=== PATIENT | female | born 1935 | race Caucasian/White ===

== ENCOUNTER 2020-01-14 11:18 | Outpatient (CLI) | payer MEDICARE, SELFPAY ==
[2020-01-14 12:11] LABS: Alanine Aminotransferase 25 U/L (4-35); Albumin Level 4.3 g/dL (3.5-5.1); Alkaline Phosphatase 100 U/L (38-126); Aspartate Amino Transferase 31 U/L (14-36); Bilirubin,Total 0.7 mg/dL (0.2-1.3); Blood Urea Nitrogen 24 mg/dL (7-17); Calcium 9.5 mg/dL (8.4-10.2); Carbon Dioxide 29 mmol/L (22-30); Chloride 103 mmol/L (98-107); Cholesterol 154 mg/dL (0-200); Estimated Glomerular Filt Rate > 60; Glucose 130 mg/dL (65-105); HDL Direct 61 mg/dL; Potassium 4.6 mmol/L (3.4-5.0); Sodium 138 mmol/L (137-145); Triglycerides 82 mg/dL (<150)
[2020-01-14 12:22] LABS: LDL Cholesterol Direct 69 mg/dL
== END 2020-01-14 11:19 | disposition home or self-care (01) ==
LOC: ANHLAB 11:22
PROVIDERS: PCP Internal Medicine; Visit Provider Internal Medicine Cardiovascular Disease
DX: Z51.81 Encounter for therapeutic drug level monitoring (principal); I25.10 Atherosclerotic heart disease of native coronary artery without angina pectoris; E78.2 Mixed hyperlipidemia
CPT/HCPCS: 36415; 80053; 80061

== ENCOUNTER 2020-01-18 08:02 | Outpatient (CLI) | payer MEDICARE, SELFPAY ==
[2020-01-18 08:17] LABS: Add Urine Microscopic? YES; Appearance Urine Clear (Clear); Bilirubin Urine Negative (Negative); Blood Urine Negative (Negative); Color Urine Yellow (Yellow); Glucose Urine UA Negative (Negative); Ketones Urine Negative (Negative); Leukocyte Esterase Ur Trace LEU/UL (Negative); Nitrate Urine Negative (Negative); Protein Urine Negative (Negative); Specific Grav Ur 1.025 (1.010-1.020); pH Urine 5.5 (5.0-8.0)
[2020-01-18 08:26] LABS: Creatinine Urine 112.86 mg/dL (40-278); MALB Creatinine Ratio 5.9 mg/g (0-30); Microalbumin Urine Random 6.7 mg/L
[2020-01-18 08:29] LABS: Hemoglobin A1C 6.6 % (<5.7)
[2020-01-18 08:33] LABS: Bacteria Urine Trace /hpf; RBC Urine None seen /hpf (0-2); Squamous Epithelial Cell Urine Few /hpf (Few); WBC Urine None seen /hpf (0-3)
[2020-01-18 08:56] LABS: Alanine Aminotransferase 28 U/L (14-59); Albumin Level 3.8 g/dL (3.4-5.0); Alkaline Phosphatase 102 U/L (46-116); Anion Gap 11.6 mmol/L (7-16); Aspartate Amino Transferase 22 U/L (15-37); Bilirubin,Total 0.8 mg/dL (0.00-1.00); Blood Urea Nitrogen 27 mg/dL (7-18); Calcium 9.3 mg/dL (8.5-10.1); Carbon Dioxide 30 mmol/L (21-32); Chloride 105 mmol/L (98-108); Cholesterol 138 mg/dL (0-200); Creatine Kinase 95 U/L (26-192); Estimated Glomerular Filt Rate > 60; Glucose 141 mg/dL (70-99); HDL Direct 62 mg/dL (40-60); LDL Cholesterol Calculated 65 mg/dL (<130); Osmolality Calculated 301 mOsm/kg (285-295); Potassium 4.6 mmol/L (3.5-5.1); Sodium 142 mmol/L (136-145); Total Protein 6.8 g/dL (6.4-8.2); Triglycerides 57 mg/dL (0-150)
[2020-01-21 17:31] LABS: Vitamin D 25 Hydroxy 57 ng/mL (30-100)
== END 2020-01-18 08:03 | disposition home or self-care (01) ==
LOC: CHSLAB 08:04
PROVIDERS: PCP Internal Medicine; Visit Provider Internal Medicine
DX: E55.9 Vitamin D deficiency, unspecified (principal); I10 Essential (primary) hypertension; E11.65 Type 2 diabetes mellitus with hyperglycemia
CPT/HCPCS: 36415; 80053; 80061; 81001; 82043; 82306; 82550; 83036

== ENCOUNTER 2020-02-06 10:34 | Outpatient (CLI) | payer MEDICARE, SELFPAY ==
--- NOTE | ~2020-02-06 | XR_ITS ---
XR hand LT min 3V DATE: 02/06/2020 10:59 INDICATION: Left fourth digit pain. No known injury. TECHNIQUE: 3 views COMPARISON: None FINDINGS: Diffuse osteopenia. There is polyarticular osteoarthritis involving particularly the interphalangeal joints, the first ca rpometacarpal joint. No fracture or dislocation, periosteal reaction or bone destruction. IMPRESSION: Osteopenia Polyarticular osteoarthritis Reviewed, dictated and finalized at location B.
--- NOTE | ~2020-02-06 | XR_ITS ---
EXAMINATION:XR_CERV2-3V_CR DATE: 02/06/2020 10:59 INDICATION: Neck pain TECHNIQUE: AP, lateral, lateral swimmers and odontoid views of the cervical spine are provided. COMPARISON: None FINDINGS: There are 2 mm of anterolisthesis of C4 on C5 and C7 on T1. The odontoid is intact. No frac ture is identified. The vertebral body heights are maintained. There is moderate loss of intervertebr al disc space height at C6-7 and C7-T1 and mild loss of intervertebral disc space height at C4-5 and C5-6. There are severe multilevel facet and uncovertebral joint osteoarthritis. Small degenerative os teophytes project from the anterior endplates of multiple vertebral bodies. IMPRESSION: 1. Moderate to severe cervical spondylosis without acute findings. Reviewed, dictated and finalized at location A.
--- NOTE | ~2020-02-06 | XR_ITS ---
XR hand RT min 3V DATE: 02/06/2020 11:00 INDICATION: First digit locks up TECHNIQUE: 3 views COMPARISON: None FINDINGS: There is polyarticular osteoarthritis, involving particularly the first carpometacarpal and multiple interphalangeal joints, mild involvement at the metacarpophalangeal joints. Chondrocalcinosis of the triangular cartilage. No fracture or dislocation, periosteal reaction or bone destruction. IMPRESSION: Polyarticular osteoarthritis Reviewed, dictated and finalized at location B.
[2020-02-06 10:54] LABS: Basophils Absolute Auto 0.02 K/mm3 (0.00-0.10); Basophils Percent Auto 0.3 % (0.0-1.0); Eosinophils Absolute Auto 0.15 K/mm3 (0.02-0.50); Eosinophils Percent Auto 2.2 % (1.0-6.0); Hematocrit 37.5 % (35.0-42.0); Hemoglobin 12.1 g/dL (11.7-13.8); Immature Granulocyte Absolute 0.02 K/mm3 (0.00-0.00); Immature Granulocyte Percent A 0.3 % (0.0-0.0); Lymphocytes Absolute Auto 1.91 K/mm3 (1.10-4.50); Lymphocytes Percent Auto 27.9 % (18.0-42.0); Mean Corpuscular HGB Conc 32.3 g/dL (32.0-36.0); Mean Corpuscular Hemoglobin 31.3 pg (27.0-31.0); Mean Corpuscular Volume 97.2 fL (78.0-102.0); Mean Platelet Volume 10.8 fl (9.2-11.8); Monocytes Absolute Auto 0.41 K/mm3 (0.10-0.90); Neutrophils Absolute Auto 4.3 K/mm3 (1.7-7.2); Neutrophils Percent Auto 63.3 % (50.0-70.0); Platelet Count Result 150 K/mm3 (150-420); Red Blood Count 3.86 M/mm3 (4.20-5.40); Red Cell Distribution Width 12.3 % (11.6-14.4); White Blood Count 6.8 K/mm3 (4.8-10.8)
[2020-02-06 11:59] LABS: Rheumatoid Factor Screen Negative (Negative)
[2020-02-06 12:00] LABS: Erythrocyte Sedimentation Rate 18 mm/hr (0-20)
[2020-02-06 12:06] LABS: Ferritin 104 ng/mL (8-252); Free T3 2.23 pg/mL (2.18-3.98); Free T4 Free Thyroxine 1.03 ng/dL (0.76-1.46); Iron 62 ug/dL (50-170); Percent Iron Saturation 18 % (12-57); Thyroid Stimulating Hormone 1.64 uIU/mL (0.36-3.74)
[2020-02-06 12:14] LABS: CRP < 0.2 mg/dL (0.0-0.9)
[2020-02-11 14:27] LABS: Anti Cyclic Citrullinated Pept <16 Units (<20)
== END 2020-02-06 10:35 | disposition home or self-care (01) ==
LOC: CHSLAB 10:36
PROVIDERS: PCP Internal Medicine; Visit Provider Internal Medicine
DX: M54.2 Cervicalgia (principal); M79.642 Pain in left hand; M79.641 Pain in right hand; R53.83 Other fatigue; E11.9 Type 2 diabetes mellitus without complications; Z79.899 Other long term (current) drug therapy; E55.9 Vitamin D deficiency, unspecified; R41.3 Other amnesia; D50.9 Iron deficiency anemia, unspecified
CPT/HCPCS: 36415; 72040; 73130; 82728; 83540; 83550; 84439; 84443; 84481; 85025; 85652; 86140; 86200; 86430

== ENCOUNTER 2020-07-02 11:23 | Outpatient (CLI) | payer MEDICARE, SELFPAY ==
[2020-07-02 11:38] LABS: Add Urine Microscopic? YES; Appearance Urine Clear (Clear); Bilirubin Urine Negative (Negative); Blood Urine Negative (Negative); Color Urine Yellow (Yellow); Glucose Urine UA Negative (Negative); Ketones Urine Negative (Negative); Leukocyte Esterase Ur Trace (Negative); Nitrate Urine Negative (Negative); Protein Urine Negative (Negative); Specific Grav Ur >= 1.030 (1.010-1.020); Urobilinogen Urine 0.2 mg/dL (0.2-1.0)
[2020-07-02 11:39] LABS: Basophils Absolute Auto 0.02 K/mm3 (0.00-0.10); Basophils Percent Auto 0.3 % (0.0-1.0); Eosinophils Absolute Auto 0.19 K/mm3 (0.02-0.50); Eosinophils Percent Auto 2.6 % (1.0-6.0); Hematocrit 37.5 % (35.0-42.0); Hemoglobin 11.8 g/dL (11.7-13.8); Immature Granulocyte Absolute 0.03 K/mm3 (0.00-0.00); Immature Granulocyte Percent A 0.4 % (0.0-0.0); Lymphocytes Absolute Auto 2.06 K/mm3 (1.10-4.50); Lymphocytes Percent Auto 28.3 % (18.0-42.0); Mean Corpuscular HGB Conc 31.5 g/dL (32.0-36.0); Mean Corpuscular Hemoglobin 30.8 pg (27.0-31.0); Mean Corpuscular Volume 97.9 fL (78.0-102.0); Mean Platelet Volume 10.9 fl (9.2-11.8); Monocytes Absolute Auto 0.56 K/mm3 (0.10-0.90); Monocytes Percent Auto 7.7 % (2.0-11.0); Neutrophils Absolute Auto 4.4 K/mm3 (1.7-7.2); Neutrophils Percent Auto 60.7 % (50.0-70.0); Platelet Count Result 176 K/mm3 (150-420); Red Blood Count 3.83 M/mm3 (4.20-5.40); Red Cell Distribution Width 12.5 % (11.6-14.4); White Blood Count 7.3 K/mm3 (4.8-10.8)
[2020-07-02 11:43] LABS: RBC Urine 0-2 /hpf (0-2); WBC Urine 0-3 /hpf (0-3)
[2020-07-02 11:44] LABS: Bacteria Urine 1+ /hpf; Mucus Urine Few /lpf; Squamous Epithelial Cell Urine Few /hpf (Few)
[2020-07-02 11:53] LABS: Hemoglobin A1C 6.1 % (<5.7)
[2020-07-02 12:37] LABS: Erythrocyte Sedimentation Rate 20 mm/hr (0-20)
[2020-07-02 13:08] LABS: Alanine Aminotransferase 29 U/L (14-59); Albumin Level 4.1 g/dL (3.4-5.0); Alkaline Phosphatase 100 U/L (46-116); Anion Gap 10 mmol/L (8-16); Aspartate Amino Transferase 26 U/L (15-37); Bilirubin,Total 0.6 mg/dL (0.00-1.00); Blood Urea Nitrogen 27 mg/dL (7-18); Calcium 9.7 mg/dL (8.5-10.1); Carbon Dioxide 29 mmol/L (21-32); Chloride 107 mmol/L (98-108); Cholesterol 159 mg/dL (0-200); Creatine Kinase 111 U/L (26-192); Estimated Glomerular Filt Rate 52; Free T3 2.15 pg/mL (2.18-3.98); Free T4 Free Thyroxine 1.05 ng/dL (0.76-1.46); Glucose 85 mg/dL (70-99); HDL Direct 74 mg/dL (40-60); LDL Cholesterol Calculated 67 mg/dL (<130); Osmolality Calculated 306 mOsm/kg (285-295); Potassium 4.6 mmol/L (3.5-5.1); Sodium 146 mmol/L (136-145); Thyroid Stimulating Hormone 1.64 uIU/mL (0.36-3.74); Total Protein 7.3 g/dL (6.4-8.2); Triglycerides 91 mg/dL (0-150); Vitamin B12 355 pg/mL (193-986)
[2020-07-08 11:17] LABS: Vitamin D 25 Hydroxy 49 ng/mL (30-100)
== END 2020-07-02 11:24 | disposition home or self-care (01) ==
LOC: CHSLAB 11:25
PROVIDERS: PCP Internal Medicine; Visit Provider Internal Medicine
DX: E78.2 Mixed hyperlipidemia (principal); I10 Essential (primary) hypertension; E55.9 Vitamin D deficiency, unspecified; E11.59 Type 2 diabetes mellitus with other circulatory complications; I48.0 Paroxysmal atrial fibrillation; I25.10 Atherosclerotic heart disease of native coronary artery without angina pectoris; G62.9 Polyneuropathy, unspecified
CPT/HCPCS: 36415; 80053; 80061; 81001; 82306; 82550; 82607; 83036; 84439; 84443; 84481; 85025; 85652; 86038; 86039

== ENCOUNTER 2020-07-08 09:44 | Outpatient (CLI) | payer MEDICARE, SELFPAY ==
--- NOTE | ~2020-07-08 | MR_ITS ---
EXAMINATION: MR brain/brain stem wo con DATE: 07/08/2020 11:19 INDICATION: Cerebrovascular accident. Head injury. TECHNIQUE: Magnetic resonance imaging (MRI) of the brain and brainstem was performed without intraven ous contrast. Sequences included sagittal and axial T1-weighted FSE, axial diffusion-weighted FS EPI, axial T2*-weighted GRE, axial T2-weighted FLAIR Propeller, and axial T2-weighted Propeller. Apparent diffusion coefficient (ADC) maps were created. COMPARISON: None. FINDINGS: There is no intracranial hemorrhage, acute infarction, or abnormal intracranial mass lesion . There are scattered areas of nonspecific increased T2-weighted signal intensity in the cerebral whi te matter. The ventricles are normal in size. There is mucosal thickening in right sphenoid sinus. Th e orbits are normal. The mastoid air cells are normal. IMPRESSION: 1. Moderate nonspecific cerebral white matter disease, which likely represents chronic small vessel i schemic disease. Reviewed, dictated and finalized at location B. DCAST MAINTENANCE TECHNICIAN IMPRESSION: 1. Moderate nonspecific cerebral white matter disease, which likely represents chronic small vessel ischemic disease.
--- NOTE | ~2020-07-08 | US_ITS ---
EXAMINATION: US carotid duplex BI DATE: 07/08/2020 10:23 INDICATION: Cerebrovascular accident. TECHNIQUE: Grayscale, color Doppler, and pulsed Doppler images of the cervical carotid arteries were obtained. The degree of vessel stenosis is placed in one of the following categories: normal, <50%, 5 0-69%, >=70% but less than near-occlusion, near-occlusion, or total occlusion. Note that percent sten osis relative to normal distal artery lumen diameter is indirectly measured from velocity measurement s as described by Josué, et al. Radiology 2003; 229:340-346. COMPARISON: chest CT 09/06/12 FINDINGS: There is a chronic multinodular goiter, likely not clinically significant. RIGHT: The right common carotid artery (CCA) peak systolic velocity (PSV) is 89 cm/s. The right internal car otid artery (ICA) PSV is 94 cm/s. The right ICA end-diastolic velocity (EDV) is 16 cm/s. The right IC A/CCA PSV ratio is 1.1. Grayscale and color Doppler images yield an estimate of <50% diameter reducti on from plaque in the ICA. There is antegrade flow in the right vertebral artery. LEFT: The left CCA PSV is 112 cm/s. The left ICA PSV is 137 cm/s. The left ICA EDV is 21 cm/s. The left ICA /CCA PSV ratio is 1.2. Grayscale and color Doppler images yield an estimate of <50% diameter reductio n from plaque in the ICA. There is antegrade flow in the left vertebral artery. IMPRESSION: 1. <50% stenosis in the right internal carotid artery. 2. <50% stenosis in the left internal carotid artery. Reviewed, dictated and finalized at location B. ER SET UP OPERATOR
== END 2020-07-08 09:45 | disposition home or self-care (01) ==
LOC: CHSIMG 09:46
PROVIDERS: PCP Internal Medicine; Visit Provider Internal Medicine
DX: I63.9 Cerebral infarction, unspecified (principal)
CPT/HCPCS: 70551; 93880

== ENCOUNTER 2020-07-17 09:49 | Outpatient (CLI) | payer MEDICARE, SELFPAY ==
[2020-07-22 00:28] LABS: Mitochondrial (M2) Ab (IgG) <=20.0 U (<=20.0)
[2020-07-22 12:00] LABS: Scleroderma 70 Antibody <1.0
== END 2020-07-17 09:50 | disposition home or self-care (01) ==
LOC: CHSLAB 09:51
PROVIDERS: PCP Internal Medicine; Visit Provider Internal Medicine
DX: R76.0 Raised antibody titer (principal)
CPT/HCPCS: 36415; 83520; 86235

== ENCOUNTER 2021-02-06 07:34 | Outpatient (CLI) | payer MEDICARE, SELFPAY ==
[2021-02-06 07:58] LABS: Add Urine Microscopic? YES; Appearance Urine Clear (Clear); Bilirubin Urine Negative (Negative); Blood Urine Negative (Negative); Color Urine Light Yellow (Yellow); Glucose Urine UA Negative (Negative); Ketones Urine Negative (Negative); Leukocyte Esterase Ur Trace LEU/UL (Negative); Nitrate Urine Negative (Negative); Protein Urine Negative (Negative); Specific Grav Ur >= 1.030 (1.010-1.020); Urobilinogen Urine 0.2 mg/dL (0.2-1.0); pH Urine 5.5 (5.0-8.0)
[2021-02-06 08:04] LABS: Bacteria Urine 1+ /hpf; RBC Urine None seen /hpf (0-2); Squamous Epithelial Cell Urine Few /hpf (Few); WBC Urine 0-3 /hpf (0-3)
[2021-02-06 08:08] LABS: Hemoglobin A1C 7.6 % (<5.7)
[2021-02-06 08:57] LABS: MALB Creatinine Ratio 8.2 mg/g (0-30); Microalbumin Urine Random 17.6 mg/L
[2021-02-06 09:20] LABS: Alanine Aminotransferase 29 U/L (14-59); Albumin Level 3.7 g/dL (3.4-5.0); Alkaline Phosphatase 96 U/L (46-116); Anion Gap 12 mmol/L (8-16); Aspartate Amino Transferase 21 U/L (15-37); Bilirubin,Total 0.6 mg/dL (0.00-1.00); Blood Urea Nitrogen 24 mg/dL (7-18); Carbon Dioxide 26 mmol/L (21-32); Chloride 107 mmol/L (98-108); Cholesterol 151 mg/dL (0-200); Creatine Kinase 67 U/L (26-192); Estimated Glomerular Filt Rate > 60; Glucose 164 mg/dL (70-99); HDL Direct 59 mg/dL (40-60); LDL Cholesterol Calculated 78 mg/dL (<130); Osmolality Calculated 308 mOsm/kg (285-295); Potassium 4.4 mmol/L (3.5-5.1); Sodium 145 mmol/L (136-145); Total Protein 6.6 g/dL (6.4-8.2); Triglycerides 70 mg/dL (0-150)
[2021-02-09 20:03] LABS: Vitamin D 25 Hydroxy 55 ng/mL (30-100)
== END 2021-02-06 07:35 | disposition home or self-care (01) ==
LOC: CHSLAB 07:36
PROVIDERS: PCP Internal Medicine; Visit Provider Internal Medicine
DX: E55.9 Vitamin D deficiency, unspecified (principal); E78.5 Hyperlipidemia, unspecified; I10 Essential (primary) hypertension; E11.65 Type 2 diabetes mellitus with hyperglycemia
CPT/HCPCS: 36415; 80053; 80061; 81001; 82043; 82306; 82550; 83036

== ENCOUNTER 2021-06-12 08:12 | Outpatient (CLI) | payer MEDICARE, SELFPAY ==
[2021-06-12 09:00] LABS: Anion Gap 9 mmol/L (8-16); Blood Urea Nitrogen 23 mg/dL (7-18); Calcium 9.7 mg/dL (8.5-10.1); Carbon Dioxide 29 mmol/L (21-32); Chloride 104 mmol/L (98-108); Estimated Glomerular Filt Rate 56; Glucose 131 mg/dL (70-99); Osmolality Calculated 299 mOsm/kg (285-295); Potassium 4.2 mmol/L (3.5-5.1); Sodium 142 mmol/L (136-145)
== END 2021-06-12 08:13 | disposition home or self-care (01) ==
LOC: CHSLAB 08:13
PROVIDERS: PCP Internal Medicine; Visit Provider Internal Medicine
DX: E11.65 Type 2 diabetes mellitus with hyperglycemia (principal)
CPT/HCPCS: 36415; 80048; 83036

== ENCOUNTER 2021-06-21 09:51 | Outpatient (CLI) | payer MEDICARE, SELFPAY ==
[2021-06-21 10:09] LABS: Basophils Absolute Auto 0.02 K/mm3 (0.00-0.10); Basophils Percent Auto 0.3 % (0.0-1.0); Eosinophils Percent Auto 1.4 % (1.0-6.0); Hematocrit 37.4 % (35.0-42.0); Hemoglobin 11.9 g/dL (11.7-13.8); Immature Granulocyte Absolute 0.03 K/mm3 (0.00-0.00); Immature Granulocyte Percent A 0.4 % (0.0-0.0); Lymphocytes Absolute Auto 2.03 K/mm3 (1.10-4.50); Lymphocytes Percent Auto 29.3 % (18.0-42.0); Mean Corpuscular HGB Conc 31.8 g/dL (32.0-36.0); Mean Corpuscular Hemoglobin 30.9 pg (27.0-31.0); Mean Corpuscular Volume 97.1 fL (78.0-102.0); Mean Platelet Volume 10.5 fl (9.2-11.8); Monocytes Percent Auto 5.8 % (2.0-11.0); Neutrophils Absolute Auto 4.4 K/mm3 (1.7-7.2); Neutrophils Percent Auto 62.8 % (50.0-70.0); Platelet Count Result 177 K/mm3 (150-420); Red Blood Count 3.85 M/mm3 (4.20-5.40); Red Cell Distribution Width 12.2 % (11.6-14.4); White Blood Count 6.9 K/mm3 (4.8-10.8)
[2021-06-21 10:45] LABS: Free T4 Free Thyroxine 1.01 ng/dL (0.76-1.46); Thyroid Stimulating Hormone 2.15 uIU/mL (0.36-3.74)
[2021-06-21 11:10] LABS: Free T3 2.52 pg/mL (2.18-3.98)
== END 2021-06-21 09:52 | disposition home or self-care (01) ==
LOC: CHSLAB 09:54
PROVIDERS: PCP Internal Medicine; Visit Provider Internal Medicine
DX: I48.0 Paroxysmal atrial fibrillation (principal)
CPT/HCPCS: 36415; 84439; 84443; 84481; 85025

== ENCOUNTER 2021-06-22 07:58 | Outpatient (CLI) | payer MEDICARE, SELFPAY ==
--- NOTE | ~2021-06-22 | US_ITS ---
EXAMINATION: US right upper quadrant DATE: 06/22/2021 08:23 INDICATION: Right upper quadrant abdominal pain. TECHNIQUE: Multiple grayscale and Doppler ultrasound images of the abdomen were obtained. COMPARISON: CT abdomen and pelvis 06/04/2019 FINDINGS: The visualized portions of the head and body of the pancreas are normal. The liver is marci l without focal lesion. No liver surface nodularity. The gallbladder is normal in size. No gallstones or gallbladder wall thickening. There was no sonographic Carrera sign. The common duct is normal and measures 4 mm. IMPRESSION: 1. Normal right upper quadrant ultrasound. Reviewed, dictated and finalized at location B. LE DATABASE ARCHITECT
== END 2021-06-22 07:59 | disposition home or self-care (01) ==
LOC: CHSIMG 07:59
PROVIDERS: PCP Internal Medicine; Visit Provider Internal Medicine
DX: R10.11 Right upper quadrant pain (principal)
CPT/HCPCS: 76705

== ENCOUNTER 2021-07-19 09:01 | Outpatient (CLI) | payer MEDICARE, SELFPAY ==
--- NOTE | ~2021-07-19 | NM_ITS ---
HEPATOBILIARY SCAN Procedure: Hepatobiliary scan performed following IV administration 5 mCi Tc 99m Choletec. At 60 min utes 1.4 mcg CCK administered IV for evaluation of gallbladder ejection fraction. Indication:Chronic right upper quadrant pain Comparison: Ultrasound dated 06/22/2021 Findings: There is normal radiotracer uptake in the liver parenchyma with prompt excretion into the b iliary tract. Gallbladder visualized at 40-45 minutes. Small bowel visualized at 10-15 minutes. No rmal gallbladder ejection fraction measures 88% (normal 10-90%, but most patients with gallbladder dy sfunction have GBEF of less than 35%) Impression: 1: Normal hepatobiliary scan. Reviewed, dictated and finalized at location A. US DEAN Impression: 1: Normal hepatobiliary scan.
== END 2021-07-19 09:02 | disposition home or self-care (01) ==
LOC: CHSIMG 09:02
PROVIDERS: PCP Internal Medicine; Visit Provider Internal Medicine
DX: R10.11 Right upper quadrant pain (principal)
CPT/HCPCS: 78227; A9537; J2805

== ENCOUNTER 2021-12-18 07:46 | Outpatient (CLI) | payer MEDICARE, SELFPAY ==
[2021-12-18 08:09] LABS: Basophils Absolute Auto 0.03 K/mm3 (0.00-0.10); Basophils Percent Auto 0.4 % (0.0-1.0); Eosinophils Absolute Auto 0.21 K/mm3 (0.02-0.50); Eosinophils Percent Auto 2.8 % (1.0-6.0); Hematocrit 36.4 % (35.0-42.0); Hemoglobin 11.5 g/dL (11.7-13.8); Immature Granulocyte Absolute 0.03 K/mm3 (0.00-0.00); Immature Granulocyte Percent A 0.4 % (0.0-0.0); Lymphocytes Percent Auto 26.9 % (18.0-42.0); Mean Corpuscular HGB Conc 31.6 g/dL (32.0-36.0); Mean Corpuscular Hemoglobin 31.3 pg (27.0-31.0); Mean Corpuscular Volume 98.9 fL (78.0-102.0); Mean Platelet Volume 11.2 fl (9.2-11.8); Monocytes Absolute Auto 0.61 K/mm3 (0.10-0.90); Monocytes Percent Auto 8.2 % (2.0-11.0); Neutrophils Absolute Auto 4.6 K/mm3 (1.7-7.2); Neutrophils Percent Auto 61.3 % (50.0-70.0); Platelet Count Result 170 K/mm3 (150-420); Red Blood Count 3.68 M/mm3 (4.20-5.40); Red Cell Distribution Width 12.1 % (11.6-14.4); White Blood Count 7.4 K/mm3 (4.8-10.8)
[2021-12-18 08:10] LABS: Add Urine Microscopic? YES; Appearance Urine Clear (Clear); Bilirubin Urine Negative (Negative); Blood Urine Negative (Negative); Color Urine Yellow (Yellow); Glucose Urine UA Negative (Negative); Ketones Urine Negative (Negative); Leukocyte Esterase Ur 1+ LEU/UL (Negative); Nitrate Urine Negative (Negative); Protein Urine Negative (Negative); Specific Grav Ur >= 1.030 (1.010-1.020)
[2021-12-18 08:20] LABS: Bacteria Urine Trace /hpf; Mucus Urine Few /lpf; RBC Urine None seen /hpf (0-2); Squamous Epithelial Cell Urine Few /hpf (Few)
[2021-12-18 08:27] LABS: Hemoglobin A1C 6.6 % (<5.7)
[2021-12-18 08:40] LABS: Alanine Aminotransferase 29 U/L (14-59); Albumin Level 3.7 g/dL (3.4-5.0); Alkaline Phosphatase 86 U/L (46-116); Anion Gap 7 mmol/L (8-16); Aspartate Amino Transferase 23 U/L (15-37); Bilirubin,Total 0.4 mg/dL (0.00-1.00); Blood Urea Nitrogen 38 mg/dL (7-18); Calcium 9.3 mg/dL (8.5-10.1); Carbon Dioxide 28 mmol/L (21-32); Chloride 104 mmol/L (98-108); Cholesterol 143 mg/dL (0-200); Creatine Kinase 170 U/L (26-192); Estimated Glomerular Filt Rate 45; Free T3 2.41 pg/mL (2.18-3.98); Free T4 Free Thyroxine 1.12 ng/dL (0.76-1.46); Glucose 155 mg/dL (70-99); HDL Direct 66 mg/dL (40-60); LDL Cholesterol Calculated 62 mg/dL (<130); Osmolality Calculated 300 mOsm/kg (285-295); Potassium 4.6 mmol/L (3.5-5.1); Sodium 139 mmol/L (136-145); Thyroid Stimulating Hormone 2.06 uIU/mL (0.36-3.74); Total Protein 6.9 g/dL (6.4-8.2); Triglycerides 73 mg/dL (0-150)
[2021-12-21 20:08] LABS: Vitamin D 25 Hydroxy 73 ng/mL (30-100)
== END 2021-12-18 07:47 | disposition home or self-care (01) ==
LOC: CHSLAB 07:47
PROVIDERS: PCP Internal Medicine; Visit Provider Internal Medicine
DX: E11.59 Type 2 diabetes mellitus with other circulatory complications (principal); E78.2 Mixed hyperlipidemia; I10 Essential (primary) hypertension; E55.9 Vitamin D deficiency, unspecified; N39.0 Urinary tract infection, site not specified
CPT/HCPCS: 36415; 80053; 80061; 81001; 82306; 82550; 83036; 84439; 84443; 84481; 85025; 87086; 87088

== ENCOUNTER 2022-01-04 11:25 | Outpatient (CLI) | payer MEDICARE, SELFPAY ==
[2022-01-04 11:42] LABS: Basophils Absolute Auto 0.03 K/mm3 (0.00-0.10); Basophils Percent Auto 0.4 % (0.0-1.0); Eosinophils Absolute Auto 0.18 K/mm3 (0.02-0.50); Eosinophils Percent Auto 2.5 % (1.0-6.0); Hematocrit 35.2 % (35.0-42.0); Hemoglobin 11.3 g/dL (11.7-13.8); Immature Granulocyte Absolute 0.04 K/mm3 (0.00-0.00); Immature Granulocyte Percent A 0.5 % (0.0-0.0); Lymphocytes Absolute Auto 1.57 K/mm3 (1.10-4.50); Lymphocytes Percent Auto 21.4 % (18.0-42.0); Mean Corpuscular HGB Conc 32.1 g/dL (32.0-36.0); Mean Corpuscular Hemoglobin 31.9 pg (27.0-31.0); Mean Corpuscular Volume 99.4 fL (78.0-102.0); Mean Platelet Volume 11.2 fl (9.2-11.8); Monocytes Absolute Auto 0.41 K/mm3 (0.10-0.90); Monocytes Percent Auto 5.6 % (2.0-11.0); Neutrophils Absolute Auto 5.1 K/mm3 (1.7-7.2); Neutrophils Percent Auto 69.6 % (50.0-70.0); Platelet Count Result 158 K/mm3 (150-420); Red Blood Count 3.54 M/mm3 (4.20-5.40); Red Cell Distribution Width 12.4 % (11.6-14.4); Reticulocyte Hemoglobin Conten 34.7 pg (28.0-35.0); Reticulocyte Percent 1.38 % (0.50-1.50); Reticulocytes Absolute 0.05 M/mm3 (0.02-0.1); White Blood Count 7.3 K/mm3 (4.8-10.8)
[2022-01-04 12:43] LABS: Anion Gap 5 mmol/L (8-16); Blood Urea Nitrogen 27 mg/dL (7-18); Calcium 9.5 mg/dL (8.5-10.1); Carbon Dioxide 30 mmol/L (21-32); Chloride 107 mmol/L (98-108); Estimated Glomerular Filt Rate 42; Ferritin 46 ng/mL (8-252); Glucose 125 mg/dL (70-99); Iron 55 ug/dL (50-170); Osmolality Calculated 300 mOsm/kg (285-295); Potassium 4.6 mmol/L (3.5-5.1); Sodium 142 mmol/L (136-145); Vitamin B12 1831 pg/mL (193-986)
== END 2022-01-04 11:26 | disposition home or self-care (01) ==
LOC: CHSLAB 11:30
PROVIDERS: PCP Internal Medicine; Visit Provider Internal Medicine
DX: N18.2 Chronic kidney disease, stage 2 (mild) (principal); D64.9 Anemia, unspecified
CPT/HCPCS: 36415; 80048; 82607; 82728; 83540; 85025; 85046

== ENCOUNTER 2022-01-07 13:23 | Outpatient (CLI) | payer MEDICARE, SELFPAY ==
[2022-01-07 13:40] LABS: Occult Blood Negative (Negative)
[2022-01-07 13:40] LABS: Occult Blood Negative (Negative)
[2022-01-07 13:40] LABS: Occult Blood Negative (Negative)
== END 2022-01-07 13:24 | disposition home or self-care (01) ==
LOC: CHSLAB 13:25
PROVIDERS: PCP Internal Medicine; Visit Provider Internal Medicine
DX: D64.9 Anemia, unspecified (principal); N18.2 Chronic kidney disease, stage 2 (mild)
CPT/HCPCS: 82272

== ENCOUNTER 2022-02-05 08:33 | Outpatient (CLI) | payer MEDICARE, SELFPAY ==
[2022-02-05 08:45] LABS: Basophils Absolute Auto 0.01 K/mm3 (0.00-0.10); Basophils Percent Auto 0.2 % (0.0-1.0); Eosinophils Absolute Auto 0.23 K/mm3 (0.02-0.50); Eosinophils Percent Auto 4.5 % (1.0-6.0); Hematocrit 36.4 % (35.0-42.0); Hemoglobin 11.8 g/dL (11.7-13.8); Immature Granulocyte Absolute 0.03 K/mm3 (0.00-0.00); Immature Granulocyte Percent A 0.6 % (0.0-0.0); Lymphocytes Absolute Auto 1.73 K/mm3 (1.10-4.50); Mean Corpuscular HGB Conc 32.4 g/dL (32.0-36.0); Mean Corpuscular Hemoglobin 31.2 pg (27.0-31.0); Mean Corpuscular Volume 96.3 fL (78.0-102.0); Mean Platelet Volume 10.1 fl (9.2-11.8); Monocytes Absolute Auto 0.62 K/mm3 (0.10-0.90); Monocytes Percent Auto 12.2 % (2.0-11.0); Neutrophils Absolute Auto 2.5 K/mm3 (1.7-7.2); Neutrophils Percent Auto 48.5 % (50.0-70.0); Platelet Count Result 156 K/mm3 (150-420); Red Blood Count 3.78 M/mm3 (4.20-5.40); Red Cell Distribution Width 12.2 % (11.6-14.4); White Blood Count 5.1 K/mm3 (4.8-10.8)
[2022-02-05 08:58] LABS: Anion Gap 7 mmol/L (8-16); Blood Urea Nitrogen 27 mg/dL (7-18); Calcium 8.9 mg/dL (8.5-10.1); Carbon Dioxide 29 mmol/L (21-32); Chloride 107 mmol/L (98-108); Estimated Glomerular Filt Rate > 60; Glucose 141 mg/dL (70-99); Osmolality Calculated 303 mOsm/kg (285-295); Potassium 4.1 mmol/L (3.5-5.1); Sodium 143 mmol/L (136-145)
== END 2022-02-05 08:34 | disposition home or self-care (01) ==
LOC: CHSLAB 08:36
PROVIDERS: PCP Internal Medicine; Visit Provider Internal Medicine
DX: D64.9 Anemia, unspecified (principal); R79.89 Other specified abnormal findings of blood chemistry
CPT/HCPCS: 36415; 80048; 85025

== ENCOUNTER 2022-05-04 07:04 | Day surgery (SDC) | payer MEDICARE, BC, SELFPAY ==
[2022-04-26 08:51] VITALS: BMI 24.9
[2022-05-04 07:45] VITALS: BP 181/85; PULSE 66; RESP 20; TEMP 36.6; O2SAT 100
[2022-05-04 07:56] LABS: Glucose Point of Care 181 mg/dl (65-105)
[2022-05-04] MEDS: OFLOXACIN 0.3% OPHTH SOLN 5 ML BTL 1 DROP AFFCTD EYE (07:59)
[2022-05-04] MEDS: TETRACAINE HCL 0.5% OPHTH SOLN 4 ML BTL 1 DROP AFFCTD EYE ×3 (08:00→08:10)
--- NOTE | 2022-05-04 08:13 | WPDANESEPPF ---
Anes - Initial Pre Proc Eval Procedure: Operation Date: 05/04/22 08:30 Proposed Procedures p Cataract Extraction with Lens Implant-Left Eye - Juan Patricio MD Date/Time: 05/04/22 08:13 Surgeon: Juan Patricio MD Pre Op Diagnosis: Cataract Left Eye Patient Data Age: 87 Gender: F Height: 1.68 m Weight: 72.6 kg Last Vital Signs Temp 36.6 C 05/04/22 07:45 Pulse 66 05/04/22 07:45 Resp 20 05/04/22 07:45 BP 181/85 H 05/04/22 07:45 Pulse Ox 100 05/04/22 07:45 O2 Del Method Room Air 05/04/22 07:45 Allergies Allergy/AdvReac Type Severity Reaction Status Date / Time No Known Allergies Allergy Verified 05/04/22 07:56 Home Medications Medication Instructions Recorded Confirmed Type aspirin 325 mg tablet 325 mg PO DAILY 10/14/20 05/04/22 History atorvastatin 40 mg tablet 40 mg PO DAILY 10/14/20 05/04/22 History cholecalciferol (vitamin D3) 125 125 mcg PO DAILY 10/14/20 05/04/22 History mcg (5,000 unit) capsule lisinopril 10 mg tablet 10 mg PO DAILY 10/14/20 05/04/22 History metformin 500 mg tablet 500 mg PO DAILY 10/14/20 05/04/22 History sotalol 120 mg tablet 120 mg PO Q12H 10/14/20 05/04/22 History celecoxib 200 mg capsule 200 mg PO DAILY 07/22/21 05/04/22 History metoprolol succinate 50 mg 50 mg PO DAILY 07/22/21 05/04/22 History tablet,extended release 24 hr pantoprazole 40 mg tablet,delayed 40 mg PO QAM 07/22/21 05/04/22 History release vitamin B complex 1 tablet PO DAILY 07/22/21 05/04/22 History Laboratory Tests 05/04/22 07:54 POC Capillary Glucose 181 mg/dl H mg/dl (65-105) Patient hx anesthesia problems: none Family hx anesthesia problems: none Results Review: All pre-operative results and documents have been reviewed as part of the pre-operative evaluation. [facility] Past Medical History Medical History Arthritis Atrial fibrillation Diabetes Hyperlipidemia Hypertension Surgical History Surgical History History of appendectomy Family History Family History Mother Hypertension Heart disease Social History Social History Smoking status: Current every day smoker Second hand tobacco smoke exposure: No Alcohol intake: current Alcohol use details: RARELY Substance use: never Substance use type: does not use Living arrangements: alone Spiritual care concerns: No Anes - Eval Final PreProcedure Day of Procedure 05/04/22 08:13 Patient weight: normal Heart: regular rate and rhythm Lungs: decreased breath sounds Airway: Mallampati scale class II Neurological: other (alert) Last oral intake: >/= 8 hours ASA classification: III Emergent: no Anesthetic plan: proceed Anesthesia type and monitoring: monitored anesthesia care and standard monitoring Results Review: All pre-operative results and documents have been reviewed as part of the pre-operative evaluation. Informed Consent: The patient's anesthetic plan and its attendant risks and benefits were discussed with the patient/family/POA. Questions were solicited and answers provided to the satisfaction of the patient/family/POA.
[2022-05-04] MEDS: LIDOCAINE HCL 2% JELLY 5 ML TUBE 1 APPLIC AFFCTD EYE (08:30)
--- NOTE | 2022-05-04 08:35 | WPDHPUPDATE1 ---
History and Physical Update Update Date/Time: 05/04/22 08:35 History and Physical has been reviewed, including an updated exam of the patient. There are NO changes in the patient's condition. Risks, benefits, and alternatives have been discussed and questions answered. Patient agrees to proceed with procedure.
[2022-05-04] MEDS: LIDOCAINE HCL 1% LOCAL INJ 2 ML AMPUL 1 ML INFILTRATE (08:55)
[2022-05-04] MEDS: HOME MEDICATION 1 EACH AFFCTD EYE (09:00)
[2022-05-04] MEDS: NEOMYCIN/POLYMYXIN/DEXAMETH OP OINT 3.5 GM TUBE 1 APPLIC AFFCTD EYE (09:05)
[2022-05-04 09:07] VITALS: BP 164/69; PULSE 62; RESP 18; O2SAT 96
[2022-05-04 09:17] VITALS: BP 165/76; PULSE 64; RESP 20; O2SAT 97
[2022-05-04] MEDS: acetaZOLAMIDE TAB 250 MG TABLET PO (09:18)
--- NOTE | 2022-05-04 09:24 | WPDANESPN ---
Anes - Prog Note Post-Op Date/Time: 05/04/22 09:24 Cardiovascular status: normal Respiratory status: normal Airway patency: baseline Mental status: baseline Post-Op hydration status: normal Vital Signs: Last Vital Signs Temp 36.6 C 05/04/22 07:45 Pulse 62 05/04/22 09:07 Resp 18 05/04/22 09:07 BP 164/69 H 05/04/22 09:07 Pulse Ox 96 05/04/22 09:07 O2 Del Method Room Air 05/04/22 09:07 Pain Score (VAS): 0 05/04/22 07:54 POC Capillary Glucose 181 H Patient Feedback: Patient satisfied with anesthetic care.
--- NOTE | 2022-05-04 10:49 | W.PM.PROC2 ---
Procedure Note - Detailed Date of Procedure 05/04/22 Pre-op Diagnosis Cataract Left Eye Post-op Diagnosis Same Procedure Performed Cataract Extraction (by Phacoemulsification) and lntraocular Lens Implant LEFT eye Surgeon Juan Patricio MD Description of Procedure The eye was anesthetized with topical 0.75% bupivacaine. After intravenous sedation and placement of monitors, the patient was prepped and draped in the usual sterile manner. A lid speculum was placed. A paracentesis was made, and preservative free 1% lidocaine was instilled in the anterior chamber. The anterior chamber was then filled with Viscoat viscoelastic. A tremaine keratome was used to create the wound. Continuous tear anterior capsulotomy was performed. The lens was hydro dissected before being removed with phacoemulsification. The remaining lenticular cortex was removed with aspiration. The capsular bag was polished and filled with viscoelastic material. An intraocular lens was chosen, inspected, irrigated and placed within the capsular bag where it was seen to be centered and stable. The viscoelastic material was aspirated. The wound was closed and found to be watertight. Ciloxan drops were placed in the eye. The speculum was removed. A Muñoz shield was applied. The patient tolerated the procedure well and left the operating room in satisfactory condition. Implants See chart Complications None Condition Stable Disposition Same day
== END 2022-05-04 09:35 | disposition home or self-care (01) ==
PROVIDERS: PCP Internal Medicine; Visit Provider Student in an Organized Health Care Education/Training Program
PROC: (CPT 66983; principal; 2022-05-04 08:30)
DX: H25.12 Age-related nuclear cataract, left eye (principal)
CPT/HCPCS: 66984

== ENCOUNTER 2022-06-01 09:26 | Day surgery (SDC) | payer MEDICARE, BC, SELFPAY ==
[2022-05-24 11:46] VITALS: BMI 25.9
[2022-06-01 10:20] VITALS: BP 222/95; PULSE 70; RESP 16; TEMP 36.9; O2SAT 100
[2022-06-01 10:49] LABS: Glucose Point of Care 163 mg/dl (65-105)
[2022-06-01] MEDS: TETRACAINE HCL 0.5% OPHTH SOLN 4 ML BTL 1 DROP AFFCTD EYE ×3 (10:59→11:09)
[2022-06-01] MEDS: OFLOXACIN 0.3% OPHTH SOLN 5 ML BTL 1 DROP AFFCTD EYE (10:59)
--- NOTE | 2022-06-01 11:02 | WPDANESEPPF ---
Anes - Initial Pre Proc Eval Procedure: Operation Date: 06/01/22 11:00 Proposed Procedures p Cataract Extraction with Lens Implant-Right Eye - Juan Patricio MD Date/Time: 06/01/22 11:02 Surgeon: Juan Patricio MD Pre Op Diagnosis: Cataract Right Eye Patient Data Age: 87 Gender: F Height: 1.68 m Weight: 70.8 kg Last Vital Signs Temp 36.9 C 06/01/22 10:20 Pulse 70 06/01/22 10:20 Resp 16 06/01/22 10:20 BP 222/95 H 06/01/22 10:20 Pulse Ox 100 06/01/22 10:20 O2 Del Method Room Air 06/01/22 10:20 Allergies Allergy/AdvReac Type Severity Reaction Status Date / Time No Known Allergies Allergy Verified 06/01/22 10:28 Home Medications Medication Instructions Recorded Confirmed Type aspirin 325 mg tablet 325 mg PO DAILY 10/14/20 06/01/22 History atorvastatin 40 mg tablet 40 mg PO DAILY 10/14/20 06/01/22 History cholecalciferol (vitamin D3) 125 125 mcg PO DAILY 10/14/20 06/01/22 History mcg (5,000 unit) capsule lisinopril 10 mg tablet 10 mg PO DAILY 10/14/20 06/01/22 History metformin 500 mg tablet 500 mg PO DAILY 10/14/20 06/01/22 History sotalol 120 mg tablet 120 mg PO Q12H 10/14/20 06/01/22 History celecoxib 200 mg capsule 200 mg PO DAILY 07/22/21 06/01/22 History metoprolol succinate 50 mg 50 mg PO DAILY 07/22/21 06/01/22 History tablet,extended release 24 hr pantoprazole 40 mg tablet,delayed 40 mg PO QAM 07/22/21 06/01/22 History release vitamin B complex 1 tablet PO DAILY 07/22/21 06/01/22 History Laboratory Tests 06/01/22 10:46 POC Capillary Glucose 163 mg/dl H mg/dl (65-105) Patient hx anesthesia problems: none Family hx anesthesia problems: none Results Review: All pre-operative results and documents have been reviewed as part of the pre-operative evaluation. [facility] Past Medical History Medical History Arthritis Atrial fibrillation Diabetes Hyperlipidemia Hypertension Surgical History Surgical History History of appendectomy Family History Family History Mother Hypertension Heart disease Social History Social History Smoking status: Never smoker Second hand tobacco smoke exposure: No Alcohol intake: never Alcohol use details: RARELY Substance use: never Substance use type: does not use Living arrangements: alone Spiritual care concerns: No Anes - Eval Final PreProcedure Day of Procedure 06/01/22 11:02 Patient weight: normal Heart: regular rate and rhythm Lungs: clear to auscultation Airway: Mallampati scale class II Neurological: other (alert) Last oral intake: >/= 8 hours ASA classification: III Emergent: no Anesthetic plan: proceed Anesthesia type and monitoring: monitored anesthesia care Results Review: All pre-operative results and documents have been reviewed as part of the pre-operative evaluation. Informed Consent: The patient's anesthetic plan and its attendant risks and benefits were discussed with the patient/family/POA. Questions were solicited and answers provided to the satisfaction of the patient/family/POA.
[2022-06-01] MEDS: LIDOCAINE HCL 2% JELLY 5 ML TUBE 1 APPLIC AFFCTD EYE (11:25)
[2022-06-01] MEDS: LIDOCAINE HCL 1% PF INJ 5 ML VIAL 1 ML INTRAOCULA (11:35)
[2022-06-01] MEDS: HOME MEDICATION 1 EACH AFFCTD EYE (11:53)
[2022-06-01] MEDS: NEOMYCIN/POLYMYXIN/DEXAMETH OP OINT 3.5 GM TUBE 1 APPLIC AFFCTD EYE (11:53)
[2022-06-01 11:56] VITALS: BP 163/93; PULSE 63; RESP 16; O2SAT 99
--- NOTE | 2022-06-01 12:00 | WPDHPUPDATE1 ---
History and Physical Update Update Date/Time: 06/01/22 12:00 History and Physical has been reviewed, including an updated exam of the patient. There are NO changes in the patient's condition. Risks, benefits, and alternatives have been discussed and questions answered. Patient agrees to proceed with procedure.
[2022-06-01] MEDS: acetaZOLAMIDE TAB 250 MG TABLET PO (12:02)
--- NOTE | 2022-06-01 12:16 | WPDANESPN ---
Anes - Prog Note Post-Op Date/Time: 06/01/22 12:16 Cardiovascular status: normal Respiratory status: normal Airway patency: baseline Mental status: baseline Post-Op hydration status: normal Vital Signs: Last Vital Signs Temp 36.9 C 06/01/22 10:20 Pulse 63 06/01/22 11:56 Resp 16 06/01/22 11:56 BP 163/93 H 06/01/22 11:56 Pulse Ox 99 06/01/22 11:56 O2 Del Method Room Air 06/01/22 11:56 Pain Score (VAS): 0 06/01/22 10:46 POC Capillary Glucose 163 H Patient Feedback: Patient satisfied with anesthetic care.
--- NOTE | 2022-06-01 12:25 | W.PM.PROC2 ---
Procedure Note - Detailed Date of Procedure 06/01/22 Pre-op Diagnosis 1) Cataract Right Eye 2) Miotic pupillary cyst Right Eye Post-op Diagnosis Same Procedure Performed Complex Cataract Extraction (by Phacoemulsification) and lntraocular Lens Implant Surgeon Juan Patricio MD Description of Procedure The eye was anesthetized with topical 0.75% bupivacaine. After intravenous sedation and placement of monitors, the patient was prepped and draped in the usual sterile manner. A lid speculum was placed. A paracentesis was made, and preservative free 1% lidocaine was instilled in the anterior chamber. The anterior chamber was then filled with Viscoat viscoelastic and a Malyugin ring was placed. A tremaine keratome was used to create the wound. Continuous tear anterior capsulotomy was performed. The lens was hydro dissected before being removed with phacoemulsification. The remaining lenticular cortex was removed with aspiration. The capsular bag was polished and filled with viscoelastic material. An intraocular lens was chosen, inspected, irrigated and placed within the capsular bag where it was seen to be centered and stable. The ring was removed, aand viscoelastic material was aspirated. The wound was closed and found to be watertight. Ciloxan drops were placed in the eye. The speculum was removed. A Muñoz shield was applied. The patient tolerated the procedure well and left the operating room in satisfactory condition. Implants See chart Complications None Condition Stable Disposition Same day
== END 2022-06-01 12:20 | disposition home or self-care (01) ==
PROVIDERS: PCP Internal Medicine; Visit Provider Student in an Organized Health Care Education/Training Program
PROC: (CPT 66983; principal; 2022-06-01 11:00)
DX: H25.11 Age-related nuclear cataract, right eye (principal)
CPT/HCPCS: 66982; 66984

== ENCOUNTER 2022-09-03 08:46 | Outpatient (CLI) | payer MEDICARE, SELFPAY ==
[2022-09-03 09:00] LABS: Appearance Urine Clear (Clear); Basophils Absolute Auto 0.02 K/mm3 (0.00-0.10); Basophils Percent Auto 0.3 % (0.0-1.0); Bilirubin Urine Negative (Negative); Blood Urine Negative (Negative); Eosinophils Absolute Auto 0.19 K/mm3 (0.02-0.50); Eosinophils Percent Auto 3.3 % (1.0-6.0); Glucose Urine UA Negative (Negative); Hematocrit 37.7 % (35.0-42.0); Hemoglobin 11.9 g/dL (11.7-13.8); Immature Granulocyte Absolute 0.02 K/mm3 (0.00-0.00); Immature Granulocyte Percent A 0.3 % (0.0-0.0); Ketones Urine Negative (Negative); Leukocyte Esterase Ur Negative LEU/UL (Negative); Lymphocytes Absolute Auto 1.66 K/mm3 (1.10-4.50); Lymphocytes Percent Auto 28.4 % (18.0-42.0); Mean Corpuscular HGB Conc 31.6 g/dL (32.0-36.0); Mean Corpuscular Hemoglobin 30.4 pg (27.0-31.0); Mean Corpuscular Volume 96.2 fL (78.0-102.0); Mean Platelet Volume 11.2 fl (9.2-11.8); Monocytes Absolute Auto 0.47 K/mm3 (0.10-0.90); Neutrophils Absolute Auto 3.5 K/mm3 (1.7-7.2); Neutrophils Percent Auto 59.7 % (50.0-70.0); Nitrate Urine Negative (Negative); Platelet Count Result 188 K/mm3 (150-420); Protein Urine Negative (Negative); Red Blood Count 3.92 M/mm3 (4.20-5.40); Red Cell Distribution Width 12.4 % (11.6-14.4); Specific Grav Ur 1.025 (1.010-1.020); Urobilinogen Urine 0.2 mg/dL (0.2-1.0); White Blood Count 5.8 K/mm3 (4.8-10.8); pH Urine 5.5 (5.0-8.0)
[2022-09-03 09:07] LABS: Add Urine Microscopic? NO; Color Urine Light Yellow (Yellow)
[2022-09-03 09:09] LABS: Hemoglobin A1C 6.5 % (<5.7)
[2022-09-03 10:49] LABS: Alanine Aminotransferase 28 U/L (14-59); Alkaline Phosphatase 94 U/L (46-116); Anion Gap 8 mmol/L (8-16); Aspartate Amino Transferase 20 U/L (15-37); Bilirubin,Total 0.8 mg/dL (0.00-1.00); Blood Urea Nitrogen 22 mg/dL (7-18); Calcium 9.5 mg/dL (8.5-10.1); Carbon Dioxide 31 mmol/L (21-32); Chloride 104 mmol/L (98-108); Cholesterol 171 mg/dL (0-200); Creatine Kinase 71 U/L (26-192); Estimated Glomerular Filt Rate 57; Free T3 2.25 pg/mL (2.18-3.98); Free T4 Free Thyroxine 1.09 ng/dL (0.76-1.46); Glucose 166 mg/dL (70-99); HDL Direct 80 mg/dL (40-60); LDL Cholesterol Calculated 79 mg/dL (<130); Osmolality Calculated 303 mOsm/kg (285-295); Potassium 4.2 mmol/L (3.5-5.1); Sodium 143 mmol/L (136-145); Thyroid Stimulating Hormone 2.65 uIU/mL (0.36-3.74); Total Protein 7.3 g/dL (6.4-8.2); Triglycerides 59 mg/dL (0-150)
[2022-09-08 17:23] LABS: Vitamin D 25 Hydroxy 75 ng/mL (30-100)
== END 2022-09-03 08:47 | disposition home or self-care (01) ==
LOC: CHSLAB 08:48
PROVIDERS: PCP Internal Medicine; Visit Provider Internal Medicine
DX: E78.2 Mixed hyperlipidemia (principal); E11.59 Type 2 diabetes mellitus with other circulatory complications; I10 Essential (primary) hypertension; E55.9 Vitamin D deficiency, unspecified; E03.9 Hypothyroidism, unspecified
CPT/HCPCS: 36415; 80053; 80061; 81003; 82306; 82550; 83036; 84439; 84443; 84481; 85025

== ENCOUNTER 2022-10-17 11:43 | Emergency (ER) | payer MEDICARE, SELFPAY ==
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
[2022-10-17 11:43] VITALS: BP 191/83; PULSE 69; RESP 18; TEMP 36.3; O2SAT 99
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
[2022-10-17 12:50] VITALS: BP 166/65; PULSE 56; RESP 18; TEMP 36.3; O2SAT 98
== END 2022-10-17 12:54 | disposition home or self-care (01) ==
PROVIDERS: Emergency Provider Emergency Medicine; PCP Internal Medicine
DX: S20.212A Contusion of left front wall of thorax, initial encounter (principal); I48.91 Unspecified atrial fibrillation; E11.9 Type 2 diabetes mellitus without complications; I10 Essential (primary) hypertension; E78.5 Hyperlipidemia, unspecified; V89.0XXA Person injured in unspecified motor-vehicle accident, nontraffic, initial encounter; Y92.481 Parking lot as the place of occurrence of the external cause
CPT/HCPCS: 71250; 99284

== ENCOUNTER 2023-03-11 08:46 | Outpatient (CLI) | payer MEDICARE, SELFPAY ==
[2023-03-11 09:18] LABS: Basophils Absolute Auto 0.03 K/mm3 (0.00-0.10); Basophils Percent Auto 0.5 % (0.0-1.0); Eosinophils Absolute Auto 0.22 K/mm3 (0.02-0.50); Eosinophils Percent Auto 3.9 % (1.0-6.0); Hematocrit 36.8 % (35.0-42.0); Immature Granulocyte Absolute 0.03 K/mm3 (0.00-0.00); Immature Granulocyte Percent A 0.5 % (0.0-0.0); Lymphocytes Absolute Auto 1.71 K/mm3 (1.10-4.50); Lymphocytes Percent Auto 30.6 % (18.0-42.0); Mean Corpuscular HGB Conc 32.6 g/dL (32.0-36.0); Mean Corpuscular Volume 98.1 fL (78.0-102.0); Mean Platelet Volume 11.4 fl (9.2-11.8); Monocytes Absolute Auto 0.43 K/mm3 (0.10-0.90); Monocytes Percent Auto 7.7 % (2.0-11.0); Neutrophils Absolute Auto 3.2 K/mm3 (1.7-7.2); Neutrophils Percent Auto 56.8 % (50.0-70.0); Platelet Count Result 178 K/mm3 (150-420); Red Blood Count 3.75 M/mm3 (4.20-5.40); Red Cell Distribution Width 13.2 % (11.6-14.4); White Blood Count 5.6 K/mm3 (4.8-10.8)
[2023-03-11 09:29] LABS: Hemoglobin A1C 5.7 % (<5.7)
[2023-03-11 09:43] LABS: Alanine Aminotransferase 20 U/L (14-59); Albumin Level 3.9 g/dL (3.4-5.0); Alkaline Phosphatase 102 U/L (46-116); Anion Gap 8 mmol/L (8-16); Aspartate Amino Transferase 21 U/L (15-37); Bilirubin,Total 0.7 mg/dL (0.00-1.00); Blood Urea Nitrogen 34 mg/dL (7-18); Calcium 9.6 mg/dL (8.5-10.1); Carbon Dioxide 30 mmol/L (21-32); Chloride 105 mmol/L (98-108); Cholesterol 143 mg/dL (0-200); Creatine Kinase 75 U/L (26-192); Estimated Glomerular Filt Rate 51; Free T3 1.93 pg/mL (2.18-3.98); Free T4 Free Thyroxine 1.12 ng/dL (0.76-1.46); Glucose 136 mg/dL (70-99); HDL Direct 66 mg/dL (40-60); LDL Cholesterol Calculated 64 mg/dL (<130); Osmolality Calculated 305 mOsm/kg (285-295); Potassium 4.2 mmol/L (3.5-5.1); Sodium 143 mmol/L (136-145); Thyroid Stimulating Hormone 2.07 uIU/mL (0.36-3.74); Total Protein 7.1 g/dL (6.4-8.2); Triglycerides 67 mg/dL (0-150)
[2023-03-11 09:48] LABS: Appearance Urine Clear (Clear); Bilirubin Urine Negative (Negative); Blood Urine Negative (Negative); Color Urine Light Yellow (Yellow); Glucose Urine UA Negative (Negative); Ketones Urine Negative (Negative); Leukocyte Esterase Ur 1+ LEU/UL (Negative); Nitrate Urine Negative (Negative); Protein Urine Negative (Negative); Specific Grav Ur 1.025 (1.010-1.020); Urobilinogen Urine 0.2 mg/dL (0.2-1.0)
[2023-03-11 09:57] LABS: Add Urine Microscopic? YES; RBC Urine None seen /hpf (0-2)
[2023-03-11 09:58] LABS: Bacteria Urine 1+ /hpf; Squamous Epithelial Cell Urine Few /hpf (Few)
[2023-03-15 22:48] LABS: Vitamin D 25 Hydroxy 75 ng/mL (30-100)
== END 2023-03-11 08:47 | disposition home or self-care (01) ==
LOC: CHSLAB 08:47
PROVIDERS: PCP Internal Medicine; Visit Provider Internal Medicine
DX: N39.0 Urinary tract infection, site not specified (principal); E55.9 Vitamin D deficiency, unspecified; E03.9 Hypothyroidism, unspecified; E78.5 Hyperlipidemia, unspecified; E11.65 Type 2 diabetes mellitus with hyperglycemia
CPT/HCPCS: 36415; 80053; 80061; 81001; 82306; 82550; 83036; 84439; 84443; 84481; 85025; 87086; 87088

== ENCOUNTER 2023-05-25 03:02 | Emergency (ER) | payer MEDICARE, SELFPAY ==
[2023-05-25] VITALS (61 sets, daily range): BP systolic 110–183; BP diastolic 62–110; PULSE 68–89; RESP 17–36; TEMP 35.2–36.7; O2SAT 83–100
--- NOTE | ~2023-05-25 | XR_ITS ---
EXAMINATION: XR chest 1V portable DATE: 05/25/2023 03:29 INDICATION: Shortness of breath. Wheezing. TECHNIQUE: A single frontal view of the chest was obtained. COMPARISON: Chest single view 10/23/2015, chest CT 10/17/2022 FINDINGS: There is a diffuse interstitial pattern in the lungs, consistent with mild pulmonary edema. No pleural effusion or pneumothorax. The heart size is normal. IMPRESSION: 1. Mild pulmonary edema. Reviewed, dictated and finalized at location E. IMPRESSION: 1. Mild pulmonary edema.
--- NOTE | 2023-05-25 03:07 | ED.SOB ---
HPI - SOB/Dyspnea General Chief Complaint: Shortness of Breath/Dyspnea Stated Complaint: sob Source: patient Mode of arrival: ambulatory Limitations: no limitations History of Present Illness HPI Narrative: 88-year-old female with a history of hypertension, diabetes mellitus, dyslipidemia, arthritis, atrial fibrillation presents to the ER with a 3 day history of -- shortness of breath. patient is noted to an oxygen saturation of 83% on room air. patient is a nonsmoker. -- generalized wheezing -- Hypertension with a blood pressure of 152/92 -- generalized weakness -- Weight loss of 30-40 lb over the past 1 year no chest pain. No fever. patient had a cardiac catheterization in 2016 which revealed nonocclusive coronary artery disease. She has a history of atrial fibrillation for which she is on sotalol and metoprolol. MD elicited complaint: shortness of breath Onset (ago): day(s) ( symptoms started 3 days ago) Severity: moderate Exacerbating factors: nothing Relieving factors: nothing Associated symptoms: denies other symptoms Treatment prior to arrival: none Related Data Home Medications Medication Instructions Recorded Confirmed aspirin 325 mg tablet 325 mg PO DAILY 10/14/20 06/01/22 atorvastatin 40 mg tablet 40 mg PO DAILY 10/14/20 06/01/22 cholecalciferol (vitamin D3) 125 125 mcg PO DAILY 10/14/20 06/01/22 mcg (5,000 unit) capsule lisinopril 10 mg tablet 10 mg PO DAILY 10/14/20 06/01/22 metformin 500 mg tablet 500 mg PO DAILY 10/14/20 06/01/22 sotalol 120 mg tablet 120 mg PO Q12H 10/14/20 06/01/22 celecoxib 200 mg capsule 200 mg PO DAILY 07/22/21 06/01/22 metoprolol succinate 50 mg 50 mg PO DAILY 07/22/21 06/01/22 tablet,extended release 24 hr pantoprazole 40 mg tablet,delayed 40 mg PO QAM 07/22/21 06/01/22 release vitamin B complex 1 tablet PO DAILY 07/22/21 06/01/22 Allergies Allergy/AdvReac Type Severity Reaction Status Date / Time No Known Allergies Allergy Verified 05/25/23 03:19 Review of Systems Review of Systems: All systems reviewed & are unremarkable except as noted in HPI and below Constitutional: Constitutional: Reports as per HPI and Reports no additional constitutional complaints Eyes: Eyes: Reports as per HPI and Reports no additional eye complaints ENT: Reports system reviewed and no additional complaints, except as documented and Reports as per HPI Cardiovascular: Cardiovascular: Reports as per HPI and Reports no additional cardiovascular complaints Respiratory: Respiratory: Reports as per HPI, Reports no additional respiratory complaints and Reports dyspnea Gastrointestinal: Gastrointestinal: Reports as per HPI and Reports no additional gastrointestinal complaints Genitourinary: Genitourinary: Reports no additional female genitourinary complaints Musculoskeletal: Musculoskeletal: Reports no additional musculoskeletal complaints and Reports as per HPI Integumentary/Breasts: Skin/Breast: Reports system reviewed and no additional complaints, except as docu and Reports as per HPI Neurologic: Reports system reviewed and no additional complaints, except as documented and Reports as per HPI Psychiatric: Psychiatric: Reports no additional psychiatric complaints and Reports as per HPI Endocrine: Endocrine: Reports no additional endocrine complaints and Reports as per HPI Hematologic/Lymphatic: Hematologic/Lymphatic: Reports no additional hematologic/lymphatic complaints and Reports as per HPI Allergic/Immunologic: Allergic/Immunologic: Reports no additional allergic/immunologic complaints and Reports as per HPI [facility] Past Medical History Medical History Arthritis Atrial fibrillation Diabetes Hyperlipidemia Hypertension Surgical History Surgical History History of appendectomy Family History Family History
--- NOTE | 2023-05-25 03:16 | ECG_ITS ---
Measurements Intervals [place] Rate: 73 P: 54 NH: 211 QRS: -35 QRSD: 89 T: 53 QT: 387 QTc: 429 Interpretive Statements SINUS RHYTHM WITH FIRST DEGREE AV BLOCK LEFT AXIS DEVIATION [QRS AXIS < -30] POSSIBLE RIGHT VENTRICULAR CONDUCTION DELAY [RSR (QR) IN V1/V2] COMPARED TO ECG 09/10/2018 10:54:54 FIRST DEGREE AV BLOCK NOW PRESENT LEFT-AXIS DEVIATION NOW PRESENT Electronically Signed On 05-25-2023 13:02:21 CDT by Milly Acosta M.D.
[2023-05-25] MEDS: IPRATROPIUM 0.5 MG/ALBUTEROL SULFATE 2.5 MG AMPUL.NEB 3 ML INHALATION (03:30)
[2023-05-25 03:43] LABS: Base Excess ABG -2.6 mmol/L (0-2); HCO3 ABG 22.8 mmol/L (23-29); Oxygen Content ABG 16.1 %vol (16.0-22.0); Oxygen Saturation ABG 96.7 % (95-97); Oxyhemoglobin 96.2 % (94-100); PCO2 ABG 41.5 mmHg (35-45); PO2 ABG 96.9 mmHg (75-85); Total Hemoglobin 11.8 g/dL (12.0-18.0); pH ABG 7.36 (7.35-7.45)
[2023-05-25 03:46] LABS: Basophils Absolute Auto 0.03 K/mm3 (0.00-0.10); Basophils Percent Auto 0.4 % (0.0-1.0); Eosinophils Percent Auto 2.4 % (1.0-6.0); Hematocrit 33.7 % (35.0-42.0); Hemoglobin 10.5 g/dL (11.7-13.8); Immature Granulocyte Absolute 0.04 K/mm3 (0.00-0.00); Immature Granulocyte Percent A 0.5 % (0.0-0.0); Lymphocytes Absolute Auto 1.18 K/mm3 (1.10-4.50); Lymphocytes Percent Auto 13.9 % (18.0-42.0); Mean Corpuscular HGB Conc 31.2 g/dL (32.0-36.0); Mean Corpuscular Hemoglobin 31.6 pg (27.0-31.0); Mean Corpuscular Volume 101.5 fL (78.0-102.0); Mean Platelet Volume 11.7 fl (9.2-11.8); Monocytes Absolute Auto 0.42 K/mm3 (0.10-0.90); Monocytes Percent Auto 4.9 % (2.0-11.0); Neutrophils Absolute Auto 6.6 K/mm3 (1.7-7.2); Neutrophils Percent Auto 77.9 % (50.0-70.0); Platelet Count Result 177 K/mm3 (150-420); Red Blood Count 3.32 M/mm3 (4.20-5.40); Red Cell Distribution Width 12.9 % (11.6-14.4); White Blood Count 8.5 K/mm3 (4.8-10.8)
[2023-05-25 03:47] LABS: Modified Allen's Test Pass; Site Drawn LEFT RADIAL
[2023-05-25 03:49] LABS: Device NON-REBREATHER MASK
[2023-05-25 04:01] LABS: INR 1.2; Partial Thromboplastin Time 24.5 SEC (23.90-30.70); Prothrombin Time 12.8 Seconds (9.50-12.10)
[2023-05-25 04:04] LABS: Lactic Acid Reflex 2.2 mmol/L (0.4-2.0)
[2023-05-25 04:06] LABS: D Dimer 3.13 mg/L (0.19-0.50)
[2023-05-25 04:09] LABS: Alanine Aminotransferase 106 U/L (14-59); Albumin Level 3.3 g/dL (3.4-5.0); Alkaline Phosphatase 156 U/L (46-116); Anion Gap 11 mmol/L (8-16); Aspartate Amino Transferase 98 U/L (15-37); Bilirubin,Total 0.7 mg/dL (0.00-1.00); Blood Urea Nitrogen 29 mg/dL (7-18); Calcium 9.3 mg/dL (8.5-10.1); Carbon Dioxide 27 mmol/L (21-32); Chloride 105 mmol/L (98-108); Estimated Glomerular Filt Rate 47; Glucose 242 mg/dL (70-99); NT Pro B Type Natriuretic Pept 1092 pg/mL (0-450); Osmolality Calculated 309 mOsm/kg (285-295); Potassium 4.4 mmol/L (3.5-5.1); Sodium 143 mmol/L (136-145); Total Protein 6.7 g/dL (6.4-8.2); Troponin I 1502.2 ng/L (0.00-60.4)
--- NOTE | 2023-05-25 04:12 | ECG_ITS ---
Measurements Intervals [place] Rate: 72 P: 61 CA: 189 QRS: -28 QRSD: 99 T: 68 QT: 422 QTc: 464 Interpretive Statements SINUS RHYTHM POSSIBLE RIGHT VENTRICULAR CONDUCTION DELAY [RSR (QR) IN V1/V2] POOR R WAVE PROGRESSION, POSSIBLE ANTERIOR MYOCARDIAL INFARCTION , OF INDETERMINATE AGE [40+ ms Q WAVE AND/OR ST/T ABNORMALITY IN V3/V4] ST CHANGES ANTERIORLY; CONSIDER ACUTE ISCHEMIA OR AL. COMPARED TO ECG 05/25/2023 03:31:22 MYOCARDIAL INFARCT FINDING NOW PRESENT Electronically Signed On 05-25-2023 19:44:24 CDT by Milly Acosta M.D.
[2023-05-25 04:37] LABS: Influenza A QL RT-PCR Negative (Negative); Influenza B QL RT-PCR Negative (Negative); RSV RNA, RT-PCR Negative (Negative); SARS-CoV-2 RNA PCR Negative (Negative)
[2023-05-25] MEDS: NITROGLYCERIN OINTMENT 1 INCH DOSE TRANSDERM (04:51)
[2023-05-25] MEDS: HEPARIN SODIUM 5,000 UNITS/ML VIAL 4000 UNITS IV PUSH (04:55)
[2023-05-25] MEDS: HEPARIN SOD/D5W 100 UNITS/ML 25,000 UNITS/250 ML BAG 8 UNITS IV CONT (05:04)
[2023-05-25] MEDS: FUROSEMIDE INJ 40 MG/4 ML VIAL IV PUSH (06:01)
[2023-05-25 06:42] LABS: Reflex Lactic Acid Yes or No Add Lactic
[2023-05-25 07:00] LABS: Appearance Urine Clear (Clear); Bilirubin Urine Negative (Negative); Blood Urine Negative (Negative); Color Urine Light Yellow (Yellow); Glucose Urine UA Negative (Negative); Ketones Urine Negative (Negative); Leukocyte Esterase Ur Negative LEU/UL (Negative); Nitrate Urine Negative (Negative); Protein Urine Negative (Negative); Specific Grav Ur 1.015 (1.010-1.020); Urobilinogen Urine 0.2 mg/dL (0.2-1.0); pH Urine 6.5 (5.0-8.0)
--- NOTE | 2023-05-25 07:01 | PC.NURSE ---
patient report given to JULIA Taylor. Patient awaiting bed at transfer facility, [facility]
[2023-05-25 07:02] LABS: Add Urine Microscopic? NO
[2023-05-25 07:19] LABS: Lactic Acid 1.5 mmol/L (0.4-2.0)
== END 2023-05-25 09:23 | disposition short-term general hospital (02) ==
PROVIDERS: Emergency Provider Internal Medicine Critical Care Medicine; PCP Internal Medicine
DX: I21.4 Non-ST elevation (NSTEMI) myocardial infarction (principal); I11.0 Hypertensive heart disease with heart failure; I50.9 Heart failure, unspecified; E11.9 Type 2 diabetes mellitus without complications; E78.5 Hyperlipidemia, unspecified; I48.91 Unspecified atrial fibrillation; Z20.822 Contact with and (suspected) exposure to COVID-19
CPT/HCPCS: 36415; 36600; 71045; 80053; 81003; 82805; 83605; 83880; 84484; 85025; 85380; 85610; 85730; 87637; 93005; 94640; 96365; 96366; 96375; 99285; A9270; J1644; J1940

== ENCOUNTER 2023-11-16 15:14 | Outpatient (CLI) | payer MEDICARE, SELFPAY ==
[2023-11-16 16:25] LABS: Free T3 2.18 pg/mL (2.18-3.98); Free T4 Free Thyroxine 1.23 ng/dL (0.76-1.46); NT Pro B Type Natriuretic Pept 3425 pg/mL (0-450); Thyroid Stimulating Hormone 2.12 uIU/mL (0.36-3.74)
[2023-11-16 16:28] LABS: Vitamin B12 > 2000 pg/mL (193-986)
[2023-11-20 21:04] LABS: Red Blood Cell Folate 668 ng/mL RBC (>280)
== END 2023-11-16 15:15 | disposition home or self-care (01) ==
LOC: CHSLAB 15:18
PROVIDERS: PCP Internal Medicine; Visit Provider Internal Medicine
DX: I50.41 Acute combined systolic (congestive) and diastolic (congestive) heart failure (principal); D64.9 Anemia, unspecified; I48.0 Paroxysmal atrial fibrillation; E11.59 Type 2 diabetes mellitus with other circulatory complications
CPT/HCPCS: 36415; 82607; 82747; 83036; 83880; 84439; 84443; 84481

== ENCOUNTER 2023-12-02 08:09 | Outpatient (CLI) | payer MEDICARE, SELFPAY ==
[2023-12-02 09:21] LABS: Anion Gap 8 mmol/L (4-12); Blood Urea Nitrogen 29 mg/dL (7-18); Calcium 9.4 mg/dL (8.5-10.1); Carbon Dioxide 31 mmol/L (21-32); Chloride 103 mmol/L (98-108); Estimated Glomerular Filt Rate 39; Glucose 164 mg/dL (70-99); NT Pro B Type Natriuretic Pept 431 pg/mL (0-450); Osmolality Calculated 303 mOsm/kg (285-295); Potassium 4.1 mmol/L (3.5-5.1); Sodium 142 mmol/L (136-145)
== END 2023-12-02 08:10 | disposition home or self-care (01) ==
PROVIDERS: PCP Internal Medicine; Visit Provider Internal Medicine
DX: I50.9 Heart failure, unspecified (principal)
CPT/HCPCS: 36415; 80048; 83880

== ENCOUNTER 2023-12-28 12:52 | Outpatient (CLI) | payer MEDICARE, SELFPAY ==
--- NOTE | 2023-12-28 12:57 | ECHO_ITS ---
Patient Info Name: Tracy Contreras Age: 88 years : 1935 Gender: Female Ht: 66 in Wt: 137 lbs BSA: 1.70 m2 HR: 70 bpm BP: 124 / 79 mmHg Technical Quality: Good Exam Date: 12/28/2023 12:56 PM Exam Location: Echo Lab Patient Status: Outpatient Admit Date: 12/28/2023 Staff Ordering Physician: Katy Vargas MD Tubing Oiler: Manny Abarca RDCS Attending Provider: Katy Vargas MD Referring Physician: Sam CARLOS; Exam Type: CA echo doppler color flow Study Info Indications - chf Summary 1. Left ventricular chamber dimension is normal. 2. Left ventricular systolic function is normal, estimated at 65-70%. 3. There is moderate concentric increased left ventricular wall thickness. 4. The left ventricular diastolic function is grade III diastolic dysfunction. 5. E/e' 25 is elevated. 6. Left atrial chamber dimension is severely enlarged. 7. There is a mild-moderate left to right atrial shunt by color doppler suggestive of atrial septal defect. 8. There is severe aortic valve sclerosis. 9. There is mild aortic valve stenosis with a peak velocity of 220 cm/s, mean gradient of 11 mmHg, and aortic valve area of 1.9 cm2. 10. There is mild aortic valve regurgitation. 11. The mitral valve has mild calcified leaflets and severe calcified annulus. 12. There is mild mitral valve stenosis with mean gradient 6 mmHg. 13. There is moderate mitral valve regurgitation. 14. There is moderate tricuspid valve regurgitation. 15. Mild pulmonary hypertension, estimated pulmonary arterial systolic pressure is 44 mmHg. Left Ventricle E/e' 25 is elevated. Left ventricular chamber dimension is normal. Left ventricular systolic function is normal, estimated at 65-70%. There is moderate concentric increased left ventricular wall thickness. The left ventricular diastolic function is grade III diastolic dysfunction. Right Ventricle Right ventricular systolic function is normal and with normal TAPSE 2.1 cm. Right ventricular chamber dimension is normal. Left Atria Left atrial chamber dimension is severely enlarged. Right Atria Right atrial chamber dimension is normal. Atrial Septum There is a mild-moderate left to right atrial shunt by color doppler suggestive of atrial septal defect. Suspected atrial septal defect visualized by 2D and color flow imaging. Aortic Valve The aortic valve is trileaflet. There is severe aortic valve sclerosis. There is mild aortic valve stenosis with a peak velocity of 220 cm/s, mean gradient of 11 mmHg, and aortic valve area of 1.9 cm2. There is mild aortic valve regurgitation. Pulmonic Valve There is no pulmonic regurgitation. Mitral Valve The mitral valve has mild calcified leaflets and severe calcified annulus. There is mild mitral valve stenosis with mean gradient 6 mmHg. There is moderate mitral valve regurgitation. Tricuspid Valve There is moderate tricuspid valve regurgitation. Mild pulmonary hypertension, estimated pulmonary arterial systolic pressure is 44 mmHg. Pericardium/Pleural There is no pericardial effusion. Inferior Vena Cava Normal inferior vena cava with >50% collapse upon inspiration consistent with normal right atrial pressure, 5 mmHg. Aorta The aortic root size at the sinus of Valsalva is normal. Left Ventricular Outflow Tract Name Value Normal LVOT 2D
== END 2023-12-28 12:53 | disposition home or self-care (01) ==
LOC: CHSIMG 12:53
PROVIDERS: PCP Internal Medicine; Visit Provider Internal Medicine
DX: I50.9 Heart failure, unspecified (principal); I27.20 Pulmonary hypertension, unspecified; I08.3 Combined rheumatic disorders of mitral, aortic and tricuspid valves
CPT/HCPCS: 93306

== ENCOUNTER 2024-04-09 08:07 | Outpatient (CLI) | payer MEDICARE, SELFPAY ==
[2024-04-09 08:19] LABS: Basophils Absolute Auto 0.03 K/mm3 (0.00-0.10); Basophils Percent Auto 0.4 % (0.0-1.0); Eosinophils Percent Auto 2.9 % (1.0-6.0); Hematocrit 37.5 % (35.0-42.0); Hemoglobin 12.2 g/dL (11.7-13.8); Immature Granulocyte Absolute 0.04 K/mm3 (0.00-0.00); Immature Granulocyte Percent A 0.6 % (0.0-0.0); Lymphocytes Absolute Auto 1.38 K/mm3 (1.10-4.50); Lymphocytes Percent Auto 19.9 % (18.0-42.0); Mean Corpuscular HGB Conc 32.5 g/dL (32-36); Mean Corpuscular Hemoglobin 31.7 pg (27.0-31.0); Mean Corpuscular Volume 97.4 fL (78.0-102.0); Mean Platelet Volume 10.3 fl (9.2-11.8); Monocytes Absolute Auto 0.47 K/mm3 (0.10-0.90); Monocytes Percent Auto 6.8 % (2.0-11.0); Neutrophils Percent Auto 69.4 % (50.0-70.0); Platelet Count Result 203 K/mm3 (150-420); Red Blood Count 3.85 M/mm3 (4.20-5.40); Red Cell Distribution Width 13.5 % (11.6-14.4); White Blood Count 6.9 K/mm3 (4.8-10.8)
[2024-04-09 08:30] LABS: Appearance Urine Sl Cloudy (Clear); Blood Urine Trace (Negative); Color Urine Dark Yellow (Yellow); Glucose Urine UA Negative (Negative); Ketones Urine Negative (Negative); Nitrate Urine Negative (Negative); Protein Urine 3+ (Negative); Specific Grav Ur 1.015 (1.010-1.020)
[2024-04-09 08:31] LABS: Add Urine Microscopic? YES; Bacteria Urine 2+ /hpf; Bilirubin Urine 1+ (Negative); Leukocyte Esterase Ur 3+ LEU/UL (Negative); Mucus Urine Few /lpf; Squamous Epithelial Cell Urine Few /hpf (Few); WBC Urine 21-30 /hpf (0-3)
[2024-04-09 09:07] LABS: Alanine Aminotransferase 36 U/L (14-59); Albumin Level 3.9 g/dL (3.4-5.0); Alkaline Phosphatase 115 U/L (46-116); Anion Gap 7 mmol/L (4-12); Aspartate Amino Transferase 31 U/L (15-37); Bilirubin,Total 0.8 mg/dL (0.00-1.00); Blood Urea Nitrogen 33 mg/dL (7-18); Calcium 9.4 mg/dL (8.5-10.1); Carbon Dioxide 33 mmol/L (21-32); Chloride 105 mmol/L (98-108); Estimated Glomerular Filt Rate 43; Glucose 164 mg/dL (70-99); NT Pro B Type Natriuretic Pept 4389 pg/mL (0-450); Osmolality Calculated 311 mOsm/kg (285-295); Potassium 4.5 mmol/L (3.5-5.1); Sodium 145 mmol/L (136-145); Total Protein 7.1 g/dL (6.4-8.2)
== END 2024-04-09 08:08 | disposition home or self-care (01) ==
LOC: CHSLAB 08:09
PROVIDERS: PCP Internal Medicine; Visit Provider Internal Medicine
DX: I50.9 Heart failure, unspecified (principal); E86.0 Dehydration; N39.0 Urinary tract infection, site not specified; R82.90 Unspecified abnormal findings in urine
CPT/HCPCS: 36415; 80053; 81001; 83880; 85025; 87086; 87088

== ENCOUNTER 2024-05-04 09:15 | Outpatient (CLI) | payer MEDICARE, SELFPAY ==
[2024-05-04 09:39] LABS: Hematocrit 33.7 % (35.0-42.0); Hemoglobin 10.9 g/dL (11.7-13.8); Mean Corpuscular HGB Conc 32.3 g/dL (32-36); Mean Corpuscular Hemoglobin 31.5 pg (27.0-31.0); Mean Corpuscular Volume 97.4 fL (78.0-102.0); Mean Platelet Volume 11.2 fl (9.2-11.8); Platelet Count Result 150 K/mm3 (150-420); Red Blood Count 3.46 M/mm3 (4.20-5.40); Red Cell Distribution Width 13.3 % (11.6-14.4)
[2024-05-04 09:40] LABS: Appearance Urine Clear (Clear); Bilirubin Urine Negative (Negative); Blood Urine Negative (Negative); Color Urine Light Yellow (Yellow); Glucose Urine UA Negative (Negative); Ketones Urine Negative (Negative); Nitrate Urine Negative (Negative); Protein Urine Negative (Negative); Specific Grav Ur 1.025 (1.010-1.020); Urobilinogen Urine 0.2 mg/dL (0.2-1.0)
[2024-05-04 09:41] LABS: Add Urine Microscopic? YES; Leukocyte Esterase Ur Trace (Negative)
[2024-05-04 09:49] LABS: Bacteria Urine Trace /hpf; RBC Urine None seen /hpf (0-2); Squamous Epithelial Cell Urine Few /hpf (Few); WBC Urine 0-3 /hpf (0-3)
[2024-05-04 09:54] LABS: Hemoglobin A1C 6.8 % (<5.7)
[2024-05-04 10:00] LABS: Alanine Aminotransferase 36 U/L (14-59); Albumin Level 3.5 g/dL (3.4-5.0); Alkaline Phosphatase 111 U/L (46-116); Anion Gap 7 mmol/L (4-12); Aspartate Amino Transferase 30 U/L (15-37); Bilirubin,Total 0.4 mg/dL (0.00-1.00); Blood Urea Nitrogen 36 mg/dL (7-18); Calcium 9.2 mg/dL (8.5-10.1); Carbon Dioxide 29 mmol/L (21-32); Chloride 104 mmol/L (98-108); Estimated Glomerular Filt Rate 46; Glucose 189 mg/dL (70-99); NT Pro B Type Natriuretic Pept 1771 pg/mL (0-450); Osmolality Calculated 303 mOsm/kg (285-295); Potassium 4.4 mmol/L (3.5-5.1); Sodium 140 mmol/L (136-145); Total Protein 6.8 g/dL (6.4-8.2)
== END 2024-05-04 09:16 | disposition home or self-care (01) ==
LOC: CHSLAB 09:17
PROVIDERS: PCP Internal Medicine; Visit Provider Internal Medicine
DX: I50.9 Heart failure, unspecified (principal); I48.0 Paroxysmal atrial fibrillation; I10 Essential (primary) hypertension; E11.40 Type 2 diabetes mellitus with diabetic neuropathy, unspecified
CPT/HCPCS: 36415; 80053; 81001; 83036; 83880; 85027

== ENCOUNTER 2024-05-20 13:27 | Outpatient (CLI) | payer MEDICARE, SELFPAY ==
--- NOTE | ~2024-05-20 | XR_ITS ---
3 VIEWS LUMBAR SPINE Ordering provider: Katy Vargas MD History: . Fall X 1 day, low back pain radiating to stomach . Comparison: January 24, 2019 FINDINGS: VERTEBRAL BODIES:Reversal of lordosis. No visible fracture or subluxation. Degenerative changes of t he spine. DISK SPACES: Narrowing of all the disc spaces in the lumbar area. SOFT TISSUES: Aortic atherosclerotic changes. IMPRESSION: No acute osseous abnormality lumbar spine. Multilevel degenerative disc disease. Reviewed, dictated and finalized at location A.
== END 2024-05-20 13:28 | disposition home or self-care (01) ==
LOC: CHSIMG 13:29
PROVIDERS: PCP Internal Medicine; Visit Provider Internal Medicine
DX: M54.50 Low back pain, unspecified (principal); M51.369 Other intervertebral disc degeneration, lumbar region without mention of lumbar back pain or lower extremity pain
CPT/HCPCS: 72100

== ENCOUNTER 2024-06-24 13:06 | Outpatient (CLI) | payer MEDICARE, SELFPAY ==
[2024-06-24 13:17] LABS: Hematocrit 35.6 % (35.0-42.0); Hemoglobin 11.5 g/dL (11.7-13.8); Mean Corpuscular HGB Conc 32.3 g/dL (32-36); Mean Corpuscular Hemoglobin 31.1 pg (27.0-31.0); Mean Corpuscular Volume 96.2 fL (78.0-102.0); Mean Platelet Volume 10.4 fl (9.2-11.8); Platelet Count Result 195 K/mm3 (150-420); Red Cell Distribution Width 13.3 % (11.6-14.4); White Blood Count 8.1 K/mm3 (4.8-10.8)
[2024-06-24 15:19] LABS: Ferritin 116 ng/mL (8-252); Iron 117 ug/dL (50-170)
[2024-06-24 15:31] LABS: Vitamin B12 > 2000 pg/mL (193-986)
[2024-06-26 18:18] LABS: Red Blood Cell Folate 624 ng/mL RBC (>280)
== END 2024-06-24 13:07 | disposition home or self-care (01) ==
LOC: CHSLAB 13:08
PROVIDERS: PCP Internal Medicine; Visit Provider Internal Medicine
DX: D64.9 Anemia, unspecified (principal)
CPT/HCPCS: 36415; 82607; 82728; 82747; 83540; 85027

== ENCOUNTER 2024-09-25 08:13 | Outpatient (CLI) | payer MEDICARE, SELFPAY ==
--- OUTSIDE RECORDS SUMMARY | 2024-09-25 08:24 | XMS_ITS | Clinical Summary ---
Author Organization [facility] [address] Address [address] [place] [address] Care Team Providers Care E Learning Coordinator Name Role Phone Katy Vargas MD Primary Care Provider + [phone] Allergies No known active allergies Medications metFORMIN (GLUCOPHAGE) 500 mg tablet take 2 tablet by oral route 2 times every day with morning and evening meals 0 10/05/19 13 Active lisinopril (PRINIVIL,ZESTRIL) 10 mg tablet take 1 tablet by ORAL route every day 0 0 09/12/19 17 Active cholecalciferol (VITAMIN D-3) 5,000 unit capsule Take 1 capsule (5,000 Units total) by mouth daily Active metoprolol XL (TOPROL-XL) 50 mg 24 hr tablet Take 1 tablet (50 mg total) by mouth daily 0 08/10/19 19 Active atorvastatin (LIPITOR) 40 mg tabletIndications:Co ronary arteriosclerosis in hughes artery,Multiple-type hyperlipidemia TAKE 1 TABLET BY MOUTH EVERY DAY 90 tablet 04/26/20 21 Active sotaloL (BETAPACE) 120 mg tabletIndications:Pa roxysmal atrial fibrillation (CMS/HCC) (HCC) Take 1 tablet (120 mg total) by mouth 2 (two) times a day 180 tablet 1 04/28/[address] (PROTONIX) 40 mg EC tablet Take 1 tablet (40 mg total) by mouth daily 04/26/20 23 Active furosemide (LASIX) 40 mg tablet Take 1 tablet (40 mg total) by mouth daily Active aspirin (Enteric Coated Aspirin) 81 mg enteric coated tabletIndications:Co ronary artery disease involving hughes coronary artery of hughes heart without angina pectoris Take 1 tablet (81 mg total) by mouth daily 06/13/20 23 Active celecoxib (CeleBREX) 200 mg capsule Take 1 capsule (200 mg total) by mouth daily Active ferrous sulfate 134 mg (27 mg of elemental iron) tabletIndications:Ir on Deficiency Anemia Take 1 tablet (134 mg total) by mouth daily with breakfast Active isosorbide mononitrate ER (IMDUR) 30 mg 24 hr tabletIndications:pr evention of anginal pain in coronary artery disease Take 1 tablet (30 mg total) by mouth daily 30 tablet 11 11/06/19 24 025 Active Active Problems Problem Noted Date Diagnosed Date History of percutaneous coronary intervention Constipation 07/02/2019 Assessment & Plan (07/02/2019 2:10 PM DEHAIRING MACHINE TENDER): Colonoscopy 2012. C/o erratic bms last months and her diet is typical live alone. She eats very erratically and avoids fruits and vegetables. Offered colonoscopy but she opts to try dietary improvement with B-L-D and fresh frit 3-5/d. Continue miralax daily prn and return if unsuccessful. PETE (dyspnea on exertion) 10/29/2018 Therapeutic drug monitoring 03/21/2017 Assessment & Plan (03/21/2017 6:44 PM CDT): Takes sotalol on will need QT another intervals checked periodically with EKG, and monitoring of renal function since this is a renally excreted medication Old myocardial infarction 03/11/2016 Overview (11/04/2016): Old AR (myocardial infarction) Multiple-type hyperlipidemia 03/11/2016 Overview (11/04/2016): Mixed hyperlipidemia Assessment & Plan (03/21/2017 6:46 PM CDT): 09/2016 total cholesterol 221, HDL 73, TG 80, LDL 132 Has refused statin therapy. Diabetes mellitus with coincident hypertension 0 01/08/2016 Overview (11/04/2016): Essential hypertension Coronary arteriosclerosis in hughes artery 01/07 Overview (11/04/2016): CAD in hughes artery Assessment & Plan (03/21/2017 6:47 PM CDT): NSTEMI provoked by AFib RVR 2016: Moderate CAD by catheterization No angina, stable on medical therapy Non-rheumatic mitral regurgitation 01/08/2016 Overview (11/04/2016): Nonrheumatic mitral (valve) insufficiency Assessment & Plan (03/21/2017 6:48 PM CDT): Heart murmur Mild to moderate MR by echo 09/2015 with only aortic valve sclerosis and no stenosis. Noncompliance with treatment 08/29/2014 Overview (11/04/2016): Noncompliance Assessment & Plan (03/21/2017 6:50 PM CDT): Refusing anticoagulation for her PAF Paroxysmal atrial fibrillation ([facility]) 014 Overview (11/04/2016): Paroxysmal atrial fibrillation Assessment & Plan (03/21/2017 6:43 PM CDT): No recent clinical PAF PAF quiescent on sotalol 120 mg b.i.d. Diabetes mellitus 06/02/2014 Overview (11/04/2016): DM (diabetes mellitus) Resolved Problems Problem Noted Date Diagnosed Date Resolved Date High risk medication use 03/21/2017 Assessment & Plan (03/21/2017 12:21 PM CDT): Tales sotalol; needs periodic EKGs to check for conduction abnormality. Precordial pain 03/21/2017 01/14/2020 Assessment & Plan (03/21/2017 6:43 PM CDT): Vague, migratory mild chest pain/likely noncardiac Drug therapy finding 01/08/2016 017 Overview (11/04/2016): Therapeutic drug monitoring Myocardial infarction 01/08/20162016 Overview (11/04/2016): Myocardial infarction less than 4 weeks ago Mitral valve insufficiency 06/02/2014 0 03/21/2017 Overview (11/04/2016): Mitral regurgitation Assessment & Plan (03/21/2017 6:46 PM CDT): Mild to moderate MR in the past Chronic coronary artery disease 06/02/2014 03/21/2017 Overview (11/04/2016): CAD (coronary artery disease) Hypertension 06/02/2014 09/29/2017 Overview (11/04/2016): HTN (hypertension) Assessment & Plan (03/21/2017 6:45 PM CDT): Blood pressure at goal Hyperlipidemia 04/08/2013 03/21/2017 Overview (11/03/2016): HYPERLIPIDEMIA NEC/NOS Encounters Date Type Department Care Team Description 08/16/2024 11:30 AM DEHAIRING MACHINE TENDER Office Visit [facility] [address] [place] [address] Floresita Ly NP Coronary artery disease involving hughes coronary artery of hughes heart without angina pectoris; History of percutaneous coronary intervention; Paroxysmal atrial fibrillation (CMS/HCC) (HCC); Therapeutic drug monitoring; Non-rheumatic mitral regurgitation from Last 3 Months Family History Medical History Relation Name Comments Other Father Unknown; Other Mother Unknown; Relation Name Status Comments Father Mother Social History Tobacco Use Types Packs/Day Years Used Date Smoking Tobacco: Never Smokeless Tobacco: Never Tobacco Cessation:Counseling Given: Not Answered Alcohol Use Standard Drinks/Week Comments No 0 (1 standard drink = 0.6 oz pur e alcohol) PHQ-2 Answer Date Recorded PHQ-2 Score 0 07/02/2019 Comments Unknown Sex and Gender Information Value Date Recorded Sex Assigned at Not on file Legal Sex Female 9:16 AM DEHAIRING MACHINE TENDER Gender Identity Not on file Sexual Orientation Not on file Obstetrics History Last Filed Vital Signs Vital Sign Reading Time Taken Comments Blood Pressure 140/60 08/16/2024 11:40 AM DEHAIRING MACHINE TENDER Pulse 64 08/16/2024 11:40 AM DEHAIRING MACHINE TENDER Temperature 36.5 C (97.7 F) 07/02/2019 1:39 PM DEHAIRING MACHINE TENDER Respiratory Rate 18 07/02/2019 1:39 PM DEHAIRING MACHINE TENDER Oxygen Saturation 99% 08/16/2024 11:40 AM DEHAIRING MACHINE TENDER Inhaled Oxygen Concentration - - Weight 63.5 kg (140 lb) 08/16/2024 11:40 AM DEHAIRING MACHINE TENDER Height 167.6 cm (5' 6 ) 08/16/2024 11:40 AM DEHAIRING MACHINE TENDER Body Mass Index 22.6 08/16/2024 11:40 AM DEHAIRING MACHINE TENDER Plan of Treatment Health Maintenance Due Date Last Done Comments Albumin Creatinine Ratio, Urine 1935 Hemoglobin A1C 1935 eGFR 1935 Dilated Eye Exam 1935 Foot Exam 1935 Hepatitis B Screening 1953 Pneumococcal vaccine 65+ (1 of 2 - PCV) 02/23/1956 Zoster Vaccine (1 of 2) 1987 Well Visit 65+ 2002 Depression Screening 07/02/2020 07/02/2019, 07/02/20 19 Fall Risk Assessment 07/02/2020 07/02/2019 Influenza Vaccine (#1) 2024 Lipid Panel 05/25/2024 05/25/2023, 12/29, 10/06/2018 DTaP/Tdap/Td Vaccine (2 - Td or Tdap) 02/24/2027, 11/08/2004 Procedures Procedure Name Priority Date/Time Associated Diagnosis Comments ECG 12-LEAD Routine 08/16/2024 12:37 PM DEHAIRING MACHINE TENDER Coronary artery disease involving hughes coronary artery of hughes heart without angina pectoris LIPID PANEL Routine 01/14/2020 11:34 AM CDT from Last 3 Months or Most Recently Relevant to Health Maintenance Results * ECG 12 lead (08/16/2024 12:37 PM DEHAIRING MACHINE TENDER) 08/16/2024 12:3 7 PM DEHAIRING MACHINE TENDER Floresita Kathleen Malachi ASBESTOS WORKER HELPER ECG ORDERABLES Final Res ult * Lipid panel (01/14/2020 11:34 AM CDT) SCRIBED Cholesterol, Total 154 0 - 200 EXTERNAL LAB SCRIBED HDL 61 40 - 100 EXTERNAL LAB SCRIBED LDL 69 0 - 100 EXTERNAL LAB SCRIBED Triglycerides 82 0 - 150 EXTERNAL LAB Blood specimen (specimen) Historical Provider MD LAB BLOOD ORDERABLES Edit ed Result - Final EXTERNAL LAB from Last 3 Months or Most Recently Relevant to Health Maintenance Insurance MEDICARE [employer] [facility] Address: [address] [address] Care Teams E Learning Coordinator Relationship Specialty Start Date End Date Katy Vargas MD [address] [place] [address] PCP - General 10/28/16
--- OUTSIDE RECORDS SUMMARY | 2024-09-25 08:24 | XMS_ITS | CONTINUITY OF CARE DOCUMENT ---
Author Name marleen hawley Address Unknown Organization [facility] Office Address [address] [place] [address] Phone [phone] Care Team Providers Care Cloth Hand Name Role Phone Russell Montgomery MD Unavailable SANTOS SHIN MD Unavailable SANTOS SHIN MD Unavailable PROBLEMS Condition Status Date Provider Notes Atrial fib, paroxysmal active Russell don MD Palpitations active Russell Montgomery MD Hypercholesterolemia active Russell Montgomery MD Diabetes mellitus, Type II w / peripheral neuropathy active Russell Montgomery MD HTN active Russell oMntgomery MD Mitral regurgitation active Russell Montgomery MD CAD active Russell Montgomery MD GERD (gastroesophageal reflux disease) active Russell Montgomery MD Generalized anxiety disorder active Main Montgomery MD Insomnia active Russell Montgomery MD ENCOUNTERS Date Type Provider Location Encounter Diag nosis 08/25 - 08/31 In-person encounter Office Visit Russell Montgomery MD [place] [facility] Atrial fib, paroxysmalPalpitationsHypercholesterolemiaDiabetes mellitus, Type II w/ peripheral neuropathyHTNMitral regurgitationCADGERD (gastroesophageal reflux disease)Generalized anxiety disorderInsomnia VITAL SIGNS Date Observation Value Provider blood pressure, diastolic 68 mm[Hg] Petros Montgomery MD blood pressure, systolic 128 mm[Hg] Lucero Montgomery MD pulse rate 71 /min Russell Montgomery MD oxygen saturation, oximetry 99 % Russell Montgomery MD respiratory rate E&M 16 /min Main Montgomery MD Body Mass Index (Ratio) 31.61 kg/m2 Barbara Montgomery MD weight E&M 190 [lb_av] Russell Montgomery MD height E&M 65 [in_i] Russell Montgomery MD ALLERGIES No Known Drug Allergies HISTORY OF MEDICATION USE Medication Status Instructions Dates Provider Indications Com ments SOTALOL HCL 80 MG ORAL TABLET active 1/2 tablet twice daily Russell Montgomery MD KLOR-CON M10 10 MEQ ORAL TABLET EXTENDED RELEASE active TAB. DAILY Russell Montgomery MD GLIMEPIRIDE 1 MG ORAL TABLET active Russell Montgomery MD METOPROLOL SUCCINATE ER 50 MG ORAL TABLET EXTENDED RELEASE 24 HOUR active one tablet daily Russell Montgomery MD SIMVASTATIN 40 MG ORAL TABLET active ONE TAB. DAILY Russell Montgomery MD METFORMIN HCL 500 MG ORAL TABLET active Russell Montgomery MD SOCIAL HISTORY Date Observation Value Provider social history E&M S moking History: P jeanette has never smoked. Russell Montgomery MD smoking status Never smoker Russell don MD social history reviewed E&M revi ewed - no changes required Russell Montgomery MD INSURANCE PROVIDERS Payer name Policy type / Coverage type [place] [employer] party ID [place] MED[employer] Medicare [id number] [facility] [id number] TREATMENT PLAN Date Name Performer Cardiology:In sinus rhythm. Because of her incresaed tiredness and fatiguability, we will reduce the dose of metoprolol xl to 50 mg daily. I have also added sotalol 80 mg 1/2 tablet twice daily. She will start this on Monday and will have three subsequent EKGs for QTc from Monday thru Monday in Dr. Shin's office. He will call us if the QTc is prolonged. I have also discussed with her anticoagulation which she declined. Russell Montgomery MD Cardiology Russell Hanna Cardiology:Blood pressure is sta ble. Russell Montgomery MD Cardiology:On simvastatin. Lilia Montgomery MD HISTORY OF PROCEDURES Procedure Date Procedure Name Provider Procedure Notes S tatus SNOMED-CT: 740674096 [id number] Current Medications Documented Russell Montgomery MD completed SNOMED-CT: 785930663 Smoking Cessation Counseling Russell Montgomery MD completed SNOMED-CT: 80826583 Physical Exam, Performed: Pulse Exam of Foot Russell Montgomery MD completed
--- OUTSIDE RECORDS SUMMARY | 2024-09-25 08:24 | XMS_ITS | Referral Summary ---
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; History of percutaneous coronary intervention; Paroxysmal atrial fibrillation (CMS/HCC) (HCC); Therapeutic drug monitoring; Non-rheumatic mitral regurgitation from Last 3 Months Allergies No known active allergies Medications metFORMIN [...] (LIPITOR) 40 mg tabletIndications:Co ronary arteriosclerosis in [place] artery,Multiple-type hyperlipidemia TAKE 1 TABLET BY MOUTH [...] enteric coated tabletIndications:Co ronary artery disease involving [place] coronary artery of [place] heart without angina pectoris Take 1 tablet [...] 07/02/2019 Assessment & Plan (07/02/2019 2:10 PM EMBEDDER): Colonoscopy 2012. C/o erratic bms last months [...] Old myocardial infarction 03/11/2016 Overview (11/04/2016): Old [place] (myocardial infarction) Multiple-type hyperlipidemia 03/11/2016 Overview (11/04/2016): Mixed hyperlipidemia Assessment & Plan (03/21/2017 6:46 PM CDT): 09/2016 total cholesterol 221, HDL 73, TG 80, LDL 132 Has refused statin therapy. Diabetes mellitus with coincident hypertension 0 01/08/2016 Overview (11/04/2016): Essential hypertension Coronary arteriosclerosis in [place] artery 01/07 Overview (11/04/2016): CAD in [place] artery Assessment & Plan (03/21/2017 6:47 PM CDT): NSTEMI provoked by AFib RVR 2015: Moderate CAD by catheterization No angina, stable [...] anticoagulation for her PAF Paroxysmal atrial fibrillation ([facility]) 014 Overview (11/04/2016): Paroxysmal atrial [...] Hyperlipidemia 04/08/2013 03/21/2017 Overview (11/03/2016): HYPERLIPIDEMIA NEC/NOS Social History Tobacco Use Types Packs/Day Years [...] on file Legal Sex Female 9:16 AM EMBEDDER Gender Identity Not on file Sexual Orientation Not on file Last Filed Vital Signs Vital Sign Reading Time Taken Comments Blood Pressure 140/60 08/16/2024 11:40 AM EMBEDDER Pulse 64 08/16/2024 11:40 AM EMBEDDER Temperature 36.5 C (97.7 F) 07/02/2019 1:39 PM EMBEDDER Respiratory Rate 18 07/02/2019 1:39 PM EMBEDDER Oxygen Saturation 99% 08/16/2024 11:40 AM EMBEDDER Inhaled Oxygen Concentration - - Weight 63.5 kg (140 lb) 08/16/2024 11:40 AM EMBEDDER Height 167.6 cm (5' 6 ) 08/16/2024 11:40 AM EMBEDDER Body Mass Index 22.6 08/16/2024 11:40 AM EMBEDDER Plan of Treatment Not on file Procedures Procedure Name Priority Date/Time Associated Diagnosis Comments ECG 12-LEAD Routine 08/16/2024 12:37 PM EMBEDDER Coronary artery disease involving [place] coronary artery of [place] heart without angina pectoris LIPID PANEL Routine 01/14/2020 11:34 AM CDT from Last 3 Months or Most Recently Relevant to Health Maintenance Results * ECG 12 lead (08/16/2024 12:37 PM EMBEDDER) 08/16/2024 12:3 7 PM EMBEDDER Floresita Ly NP ECG ORDERABLES Final Res ult * Lipid panel (01/14/2020 11:34 AM CDT) SCRIBED Cholesterol, Total 154 0 - 200 EXTERNAL LAB SCRIBED HDL 61 40 - 100 EXTERNAL LAB SCRIBED LDL 69 0 - 100 EXTERNAL LAB SCRIBED Triglycerides 82 0 - 150 EXTERNAL LAB Blood specimen (specimen) Historical Provider LAB BLOOD ORDERABLES Edit ed Result - Final EXTERNAL LAB from Last 3 Months or Most Recently Relevant to Health Maintenance Insurance MEDICARE [employer]IONS Care Teams Research Physiologist Relationship Specialty Start Date End Date Katy Vargas MD [address] [place] [address] PCP - General 10/28/16
--- OUTSIDE RECORDS SUMMARY | 2024-09-25 08:24 | XMS_ITS | Continuity of Care Document ---
Author Organization [facility] Address [address] [place] [address] [address] [place] [address] Phone Care Team Providers Care Information Systems Security Manager Name Role Phone Pederson OD, Raza Unavailable Unavailable Procedures Procedure Date Eye Exam & Treatment Refraction Dilated Retinal Exam W Interpretation Ap Advance Directives Directive Yes / No Effective Date File Name No Information Encounters Encounter Description Practice Location Reason(s) For Visit Diagnoses Date Provider Providers Copied on Encounter [facility], [address], [place], [place], [id number], [place] tel:[phone] [facility] No Information 4-200 8 Pederson OD Raza. [address] , [address], [place], [address], [place]. tel:[phone] Referring Provider: Katy Vargas MD, [address] [place] [address], [address]. tel:[phone] Family History Family Member Type Diagnosis Age At Onset No Information Payers Payer name Insurance type Covered republican ID Authoriza tion(s) [place] [id number] Social History Type Description Quantity Date Captured [...]
--- OUTSIDE RECORDS SUMMARY | 2024-09-25 08:24 | XMS_ITS | Clinical Summary ---
Author Organization [facility] Address [address] [place] [address] Care Team Providers Care National Business Director Name Role Phone Katy Vargas MD Primary Care Provider [phone] Allergies No known active allergies Medications atorvastatin (LIPITOR) 40 MG tablet Take 1 tablet (40 mg total) by mouth nightly at bedtime. Active vitamin D3 (CHOLECALCIFERO L) 125 mcg Tab Take 1 tablet (125 mcg total) by mouth daily. Active lisinopril (PRINIVIL) 10 MG tablet Take 1 tablet (10 mg total) by mouth daily. Active metFORMIN (GLUCOPHAGE) 500 MG tablet Take 1 tablet (500 mg total) by mouth daily with breakfast. Active sotalol (BETAPACE) 120 MG tablet Take 1 tablet (120 mg total) by mouth 2 (two) times daily. Active celecoxib (CELEBREX) 200 MG capsule Take 1 capsule (200 mg total) by mouth daily. Active Active Problems Problem Noted Date Diagnosed Date Acute on chronic heart failu re with preserved ejection fraction ([facility]) 05/25/2023 NSTEMI (non-ST elevated myoc ardial infarction) ([facility]) 05/25/2023 Family History Medical History Relation Comments Coronary artery disease Mother Hypertension Mother Relation Status Comments Mother Social History Tobacco Use Types Packs/Day Years Used Date Smoking Tobacco: Never Humiliation, Afraid, Rape, and Kick questionnair e Answer Date Recorded Within the last year, have y ou been afraid of your partner or ex-partner? Patient declined 05/25/2023 Within the last year, have y ou been humiliated or emotionally abused in other ways by your partner or ex-partner? Patient declined 05/25/2023 Within the last year, have y ou been kicked, hit, slapped, or otherwise physically hurt by your partner or ex-partner? Patient declined 05/25/2023 Within the last year, have y ou been raped or forced to have any kind of sexual activity by your partner or ex-partner? Patient declined 05/25/2023 Social Connection and Isolation Panel [NHANES] A nswer Date Recorded In a typical week, how many times do you talk on the phone with family, friends, or neighbors? Patient declined 05/25/2023 How often do you get togethe r with friends or relatives? Patient declined 05/25/2023 How often do you attend roman catholic or christian serv ices? Patient declined 05/25/2023 Do you belong to any clubs o r organizations such as roman catholic groups, unions, fraternal or athletic groups, or school groups? Patient declined 05/25/2023 How often do you attend meet ings of the clubs or organizations you belong to? Patient declined 05/25/2023 Are you , , di vorced, , never , or living with a partner? Patient declined 05/25/2023 AUDIT-C Answer Date Recorded Q1: How often do you have a drink containing alc ohol? Patient declined 05/25/2023 Q2: How many drinks containi ng alcohol do you have on a typical day when you are drinking? Patient declined 05/25/2023 Q3: How often do you have si x or more drinks on one occasion? Patient declined 05/25/2023 Overall Financial Resource Strain (CARDIA) Answe r Date Recorded How hard is it for you to pa y for the very basics like food, housing, medical care, and heating? Patient declined 05/25/2023 [facility] - Occupational Stress Questionnaire Answer Date Recorded Do you feel stress - tense, restless, nervous, or anxious, or unable to sleep at night because your mind is troubled all the time - these days? Patient declined 05/25/2023 Exercise Vital Sign Answer Date Recorde d Days of Exercise per Week Not on file 2022 On average, how many minutes do you engage in exercise at this level? 0 min 05/25/2023 Hunger Vital Sign Answer Date Recorded Within the past 12 months, y ou worried that your food would run out before you got the money to buy more. Patient declined Within the past 12 months, t he food you bought just didn't last and you didn't have money to get more. Patient declined PRAPARE - Transportation Answer Date Re corded In the past 12 months, has l ack of transportation kept you from medical appointments or from getting medications? Patient declined 05/25/2023 In the past 12 months, has l ack of transportation kept you from meetings, work, or from getting things needed for daily living? Patient declined 05/25/2023 Housing Stability Vital Sign Answer Jethro e Recorded In the last 12 months, was t here a time when you were not able to pay the mortgage or rent on time? No 05/25/20 23 In the last 12 months, how many places have you lived? 1 05/25/2023 In the last 12 months, was t here a time when you did not have a steady place to sleep or slept in a retirement (including now)? Patient refused 05/25/2023 Comments Unknown Sex and Gender Information Value Date Recorded Sex Assigned at Not on file Legal Sex Female 10:51 PM CDT Gender Identity Not on file Sexual Orientation Not on file Last Filed Vital Signs Vital Sign Reading Time Taken Comments Blood Pressure 130/78 05/27/2023 9:00 AM CDT Pulse 66 05/27/2023 9:00 AM CDT Temperature 37.1 C (98.8 F) 05/26/2023 7:52 AM CDT Respiratory Rate 18 05/27/2023 9:00 AM CDT Oxygen Saturation 100% 05/27/2023 9:00 AM CDT Inhaled Oxygen Concentration - - Weight 63.5 kg (140 lb 1.6 oz) 05/26/2023 5:00 A M CDT Height 170.2 cm (5' 7 ) 05/25/2023 10:55 AM CDT Body Mass Index 21.94 05/25/2023 10:55 AM CDT Plan of Treatment Health Maintenance Due Date Last Done Comments ASCVD Statin 1937 Pneumococcal Vaccine: 65+ Years (1 of 2 - PCV) 1943 Zoster Vaccines (1 of 2) 1987 Annual Medicare Wellness Visit 2002 RSV Immunization or 60+ Years (1 - 1-dose 75+ series) 02/23/2012 COVID-19 Vaccine ( - season) 2024 05/24/2022, 06/30/2021, 09/25/2020, Additional history exists Influenza Adult (#1) 2024 ASCVD LDL 05/25/2024 05/25/2023 DTaP, Tdap and Td Vaccines (2 - Td or Tdap) 02/24/2027 02/24/2017, 11/08/2004 Meningococcal B Vaccine Aged Out No l onger eligible based on patient's age to complete this topic Meningococcal Vaccine Aged Out No shad claudette eligible based on patient's age to complete this topic RSV Immunizations Under 20 Months Aged Out No longer eligible based on patient's age to complete this topic Medical Devices Implanted Type Area Psychological Operations Device Identifier Shelf Expiration Date Model / Serial / Lot Cv Xience 3.0mm X 28mm [place] Mid Lad- 3 Implanted: by Chance Hernandez MD (Quantity not on file) Stent Coronary LAD GARCIA VASCULAR 10/19/2025 [id number] - / [id number] Procedures Procedure Name Priority Date/Time Associated Diagnosis Comments LIPID PANEL STAT 05/25/2023 11:48 AM CDT from Last 3 Months or Most Recently Relevant to Health Maintenance Results * LIPID PANEL (05/25/2023 11:48 AM CDT) CHOLESTEROL 131 MG/DL 05/25/2023 1:43 PM CDT [facility] Comment:DESIRABLE: <200 TRIGLYCERIDES 56 MG/DL 05/25/2023 1:43 PM CDT [facility] Comment:<150 NORMAL HDL 74 >49 MG/DL 05/25/2023 1:43 PM CDT [facility] LDL (CALCULATED) 46 MG/DL 05/25/20 1:43 PM CDT [facility] Comment:<100 OPTIMAL VLDL CALCULATION 11 MG/DL 05/25/20 1:43 PM CDT [facility] Comment:REFERENCE RANGE NOT ESTABLISHED CHOL/HDL RATIO 1.8 05/25/2023 1:43 PM CDT [facility] Comment:REFERENCE RANGE NOT ESTABLISHED LDL/HDL 0.6 05/25/2023 1:43 PM CDT [facility] Comment:REFERENCE RANGE NOT ESTABLISHED NON HDL CHOLESTEROL 57 MG/DL 05/25/2023 1:43 PM CDT [facility] Comment:REFERENCE RANGE NOT ESTABLISHED 05/25/2023 11:4 8 AM CDT Yadira Acosta [facility] Final R esult [facility] [address] [place] [address], [id number] from Last 3 Months or Most Recently Relevant to Health Maintenance [place] [address] [address] [place] [address] [facility] UHC Advance Directives * Full Code (Latest Code Status on File) Date Activated Date Inactivated Comments 05/26/2023 5:23 PM 05/27/2023 2:32 PM * Full Code Date Activated Date Inactivated Comments 05/25/2023 11:21 AM 05/26/2023 5:23 PM Care Teams National Business Director Relationship Specialty Start Date End Date Katy Vargas MD [address] [place] [address] PCP - General INTERNAL MEDICINE 05/25/23
--- OUTSIDE RECORDS SUMMARY | 2024-09-25 08:24 | XMS_ITS | Encounter Summary ---
Author Organization [facility] Address [address] [place] [address] Care Team Providers Care Willow Machine Tender Name Role Phone Katy Vargas MD Primary Care Provider [phone] Encounter Details Date Type Department Care Team (Late st Contact Info) Description 05/29/2023 Hospital Follow-up Call [facility] [address] [place] [address] Sharla Capps RN Social History Tobacco Use Types Packs/Day Years [...] declined 05/25/2023 How often do you attend sabianist or restoration serv ices? Patient declined 05/25/2023 Do you belong to any clubs o r organizations such as sabianist groups, unions, fraternal or athletic groups, or [...] medical care, and heating? Patient declined [facility] - [facility]ational Stress Questionnaire Answer Date Recorded [...] place to sleep or slept in a prison (including now)? Patient refused 05/25/2023 Comments Unknown Sex and Gender Information Value Date Recorded Sex Assigned at Not on file Legal Sex Female 10:51 PM CDT Gender Identity Not on file Sexual Orientation Not on file documented as of this encounter Functional Status * Are you deaf or do you have serious difficulty hearing Answer Date of Assessment Author Status No 05/25/2023 11:00 AM Meliza Quintero RN Active * Are you blind or do you have serious difficulty seeing, even when wearing glasses? Answer Date of Assessment Author Status No 05/25/2023 11:00 AM Meliza Quintero RN Active * Do you have serious difficulty walking or climbing stairs? Answer Date of Assessment Author Status No 05/25/2023 11:00 AM Meliza Quintero RN Active * Do you have difficulty dressing or bathing? Answer Date of Assessment Author Status No 05/25/2023 11:00 AM Meliza Quintero RN Active * Because of a physical, mental, or emotional condition, do you have difficulty doing errands alone such as visiting a doctor's office or shopping? Answer Date of Assessment Author Status No 05/25/2023 11:00 AM Meliza Quintero RN Active documented as of this encounter Mental Status * Because of a physical, mental, or emotional condition, do you have serious difficulty concentrating, remembering, or making decisions? Answer Entry Date Author Status No 05/25/2023 11:00 AM Meliza Quintero RN Active documented in this encounter Plan of Treatment Not on file documented as of this encounter Visit Diagnoses Not on filedocumented in this encounter Care Teams Willow Machine Tender Relationship Specialty Start Date End Date Katy Vargas MD [address] [place] [id number] PCP - General INTERNAL MEDICINE 05/25/23 documented as of this encounter
--- OUTSIDE RECORDS SUMMARY | 2024-09-25 08:24 | XMS_ITS | Encounter Summary ---
Author Organization [facility] Address [address] [place] [address] Care Team Providers Care Preparation Room Worker Name Role Phone Katy Vargas MD Primary Care Provider [phone] Katy Vargas MD Primary Care Provider + [phone] Encounter Details Date Type Department Care Team (Late st Contact Info) Description 09/12/2016 Orders Only [facility] ProviderIvon MD [address] [place] [id number] Social History Tobacco Use Types Packs/Day Years Used Date Smoking Tobacco: Never Alcohol Use Standard Drinks/Week Comments No 0 (1 standard drink = 0.6 oz pur e alcohol) Comments Unknown Sex and Gender Information Value Date Recorded Sex Assigned at Not on file Legal Sex Female 9:16 AM AIR BRAKE WORKER Gender Identity Not on file Sexual Orientation Not on file documented as of this encounter Plan of Treatment Not on file documented as of this encounter Procedures Procedure Name Priority Date/Time Associated Diagnosis Comments CARDIOLOGY REPORT 09/12/2016 CARDIOLOGY REPORT 09/12/2016 documented in this encounter Results * CARDIOLOGY REPORT (09/12/2016) Anatomical Region Laterality Modality Other Narrative 09/12/2016 Ordered by an unspecified provider. Historical Provider [facility] CARDIAC SERVICES PROCE DURES Final Result * CARDIOLOGY REPORT (09/12/2016) Anatomical Region Laterality Modality Other Narrative 09/12/2016 Ordered by an unspecified provider. Historical Provider CV CARDIAC SERVICES PROCE DURES Final Result documented in this encounter Visit Diagnoses Not on filedocumented in this encounter Care Teams Preparation Room Worker Relationship Specialty Start Date End Date Katy Vargas MD [address] [place] [address] PCP - General 10/28/16 Katy Vargas MD [address] [place] [address] PCP - General 12/13/12 10/27/16 documented as of this encounter
[2024-09-25 08:44] LABS: Hematocrit 34.1 % (35.0-42.0); Hemoglobin 10.8 g/dL (11.7-13.8); Mean Corpuscular HGB Conc 31.7 g/dL (32-36); Mean Corpuscular Hemoglobin 30.8 pg (27.0-31.0); Mean Corpuscular Volume 97.2 fL (78.0-102.0); Mean Platelet Volume 11.1 fl (9.2-11.8); Platelet Count Result 147 K/mm3 (150-420); Red Blood Count 3.51 M/mm3 (4.20-5.40); Red Cell Distribution Width 13.5 % (11.6-14.4); White Blood Count 5.8 K/mm3 (4.8-10.8)
[2024-09-25 08:59] LABS: Hemoglobin A1C 7.8 % (<5.7)
[2024-09-25 09:55] LABS: Add Urine Microscopic? YES; Appearance Urine Clear (Clear); Bilirubin Urine Negative (Negative); Blood Urine Negative (Negative); Color Urine Light Yellow (Yellow); Glucose Urine UA Negative (Negative); Ketones Urine Negative (Negative); Leukocyte Esterase Ur 1+ (Negative); Nitrate Urine Negative (Negative); Protein Urine Negative (Negative); Urobilinogen Urine 0.2 mg/dL (0.2-1.0)
[2024-09-25 10:05] LABS: Creatinine Urine 69.07 mg/dL (40-278); MALB Creatinine Ratio 89.6 mg/g (0-30); Microalbumin Urine Random 61.9 mg/L
[2024-09-25 10:08] LABS: Alanine Aminotransferase 49 U/L (14-59); Albumin Level 3.8 g/dL (3.4-5.0); Alkaline Phosphatase 135 U/L (46-116); Anion Gap 9 mmol/L (4-12); Aspartate Amino Transferase 24 U/L (15-37); Blood Urea Nitrogen 31 mg/dL (7-18); Calcium 9.5 mg/dL (8.5-10.1); Carbon Dioxide 29 mmol/L (21-32); Chloride 106 mmol/L (98-108); Cholesterol 156 mg/dL (0-200); Estimated Glomerular Filt Rate 44; Ferritin 81 ng/mL (8-252); Glucose 179 mg/dL (70-99); HDL Direct 77 mg/dL (40-60); Iron 61 ug/dL (50-170); LDL Cholesterol Calculated 71 mg/dL (<130); NT Pro B Type Natriuretic Pept 828 pg/mL (0-450); Osmolality Calculated 308 mOsm/kg (285-295); Potassium 4.5 mmol/L (3.5-5.1); Sodium 144 mmol/L (136-145); Triglycerides 41 mg/dL (0-150)
[2024-09-25 10:30] LABS: Bacteria Urine Rare /hpf; RBC Urine None seen /hpf (0-2); Squamous Epithelial Cell Urine Few /hpf (Few); WBC Urine 0-3 /hpf (0-3)
[2024-09-26 14:50] LABS: Vitamin B12 > 2000 pg/mL (193-986)
== END 2024-09-25 08:14 | disposition home or self-care (01) ==
PROVIDERS: PCP Internal Medicine; Visit Provider Internal Medicine
DX: I50.9 Heart failure, unspecified (principal); E11.9 Type 2 diabetes mellitus without complications; E78.2 Mixed hyperlipidemia; D64.9 Anemia, unspecified; E03.4 Atrophy of thyroid (acquired)
CPT/HCPCS: 36415; 80053; 80061; 81001; 82043; 82607; 82728; 83036; 83540; 83880; 84439; 84443; 85027

== ENCOUNTER 2025-02-17 16:15 | Outpatient (CLI) | payer MEDICARE, SELFPAY ==
--- OUTSIDE RECORDS SUMMARY | 2025-02-17 16:18 | XMS_ITS | Referral Summary ---
Author Organization [facility] [address] Address [address] [place] [address] Care Team Providers Care Motor Equipment Lieutenant Name Role Phone Katy Vargas MD Primary Care Provider + [phone] Allergies No known active allergies Medications metFORMIN [...] (LIPITOR) 40 mg tabletIndications:Co ronary arteriosclerosis in [place] artery,Multiple-type hyperlipidemia TAKE 1 TABLET BY MOUTH EVERY DAY 90 tablet 04/26/20 21 Active sotaloL (BETAPACE) 120 mg tabletIndications:Pa roxysmal atrial fibrillation (HCC) Take 1 tablet (120 mg total) [...] enteric coated tabletIndications:Co ronary artery disease involving [place] coronary artery of [place] heart without angina pectoris Take 1 tablet [...] mouth daily 30 tablet 11 11/06/19 24 Active Active Problems Problem Noted Date Diagnosed Date History of percutaneous coronary intervention Constipation 07/02/2019 Assessment & Plan (07/02/2019 2:10 PM CASE FINISHING MACHINE ADJUSTER): Colonoscopy 2012. C/o erratic bms last months [...] Old myocardial infarction 03/11/2016 Overview (11/04/2016): Old [place] (myocardial infarction) Multiple-type hyperlipidemia 03/11/2016 Overview (11/04/2016): Mixed hyperlipidemia Assessment & Plan (03/21/2017 6:46 PM CDT): 09/2016 total cholesterol 221, HDL 73, TG 80, LDL 132 Has refused statin therapy. Diabetes mellitus with coincident hypertension 0 01/08/2016 Overview (11/04/2016): Essential hypertension Coronary arteriosclerosis in [place] artery 01/07 Overview (11/04/2016): CAD in [place] artery Assessment & Plan (03/21/2017 6:47 PM [...] anticoagulation for her PAF Paroxysmal atrial fibrillation 06/02/2014 Overview (11/04/2016): Paroxysmal atrial fibrillation Assessment & [...] on file Legal Sex Female 9:16 AM CASE FINISHING MACHINE ADJUSTER Gender Identity Not on file Sexual Orientation Not on file Last Filed Vital Signs Vital Sign Reading Time Taken Comments Blood Pressure 140/60 08/16/2024 11:40 AM CASE FINISHING MACHINE ADJUSTER Pulse 64 08/16/2024 11:40 AM CASE FINISHING MACHINE ADJUSTER Temperature 36.5 C (97.7 F) 07/02/2019 1:39 PM CASE FINISHING MACHINE ADJUSTER Respiratory Rate 18 07/02/2019 1:39 PM CASE FINISHING MACHINE ADJUSTER Oxygen Saturation 99% 08/16/2024 11:40 AM CASE FINISHING MACHINE ADJUSTER Inhaled Oxygen Concentration - - Weight 63.5 kg (140 lb) 08/16/2024 11:40 AM CASE FINISHING MACHINE ADJUSTER Height 167.6 cm (5' 6) 08/16/2024 11:40 AM CASE FINISHING MACHINE ADJUSTER Body Mass Index 22.6 08/16/2024 11:40 AM CASE FINISHING MACHINE ADJUSTER Plan of Treatment Not on file Procedures Procedure Name Priority Date/Time Associated Diagnosis Comments LIPID PANEL Routine 01/14/2020 11:34 AM CDT from Last 3 Months or Most Recently Relevant to Health Maintenance Results * Lipid panel (01/14/2020 11:34 AM CDT) SCRIBED Cholesterol, Total 154 0 - 200 EXTERNAL LAB SCRIBED HDL 61 40 - 100 EXTERNAL LAB SCRIBED LDL 69 0 - 100 EXTERNAL LAB SCRIBED Triglycerides 82 0 - 150 EXTERNAL LAB Blood specimen (specimen) us Historical Provider LAB BLOOD ORDERABLES Edit ed Result - Final EXTERNAL LAB from Last 3 Months or Most Recently Relevant to Health Maintenance Insurance [facility] MEDICARE ADVANTAGE Care Teams Motor Equipment Lieutenant Relationship Specialty Start Date End Date Katy Vargas MD [address] [place] [address] [facility] General 10/28/16
--- OUTSIDE RECORDS SUMMARY | 2025-02-17 16:18 | XMS_ITS | Clinical Summary ---
Author Organization [facility] [address] Address [address] [place] [address] Care Team Providers Care Maintenance And Repair Worker Name Role Phone Katy Vargas MD Primary Care Provider + [phone] Allergies No known active allergies Medications metFORMIN [...] (LIPITOR) 40 mg tabletIndications:Co ronary arteriosclerosis in lower sioux artery,Multiple-type hyperlipidemia TAKE 1 TABLET BY MOUTH [...] enteric coated tabletIndications:Co ronary artery disease involving lower sioux coronary artery of lower sioux heart without angina pectoris Take 1 tablet [...] 07/02/2019 Assessment & Plan (07/02/2019 2:10 PM HARDWARE TEST ENGINEER): Colonoscopy 2012. C/o erratic bms last months [...] Old myocardial infarction 03/11/2016 Overview (11/04/2016): Old [place] (myocardial infarction) Multiple-type hyperlipidemia 03/11/2016 Overview (11/04/2016): Mixed hyperlipidemia Assessment & Plan (03/21/2017 6:46 PM CDT): 09/2016 total cholesterol 221, HDL 73, TG 80, LDL 132 Has refused statin therapy. Diabetes mellitus with coincident hypertension 0 01/08/2016 Overview (11/04/2016): Essential hypertension Coronary arteriosclerosis in lower sioux artery 01/07 Overview (11/04/2016): CAD in lower sioux artery Assessment & Plan (03/21/2017 6:47 PM [...] Hyperlipidemia 04/08/2013 03/21/2017 Overview (11/03/2016): HYPERLIPIDEMIA NEC/NOS Family History Medical History Relation Name Comments [...] on file Legal Sex Female 9:16 AM HARDWARE TEST ENGINEER Gender Identity Not on file Sexual Orientation Not on file Obstetrics History Last Filed Vital Signs Vital Sign Reading Time Taken Comments Blood Pressure 140/60 08/16/2024 11:40 AM HARDWARE TEST ENGINEER Pulse 64 08/16/2024 11:40 AM HARDWARE TEST ENGINEER Temperature 36.5 C (97.7 F) 07/02/2019 1:39 PM HARDWARE TEST ENGINEER Respiratory Rate 18 07/02/2019 1:39 PM HARDWARE TEST ENGINEER Oxygen Saturation 99% 08/16/2024 11:40 AM HARDWARE TEST ENGINEER Inhaled Oxygen Concentration - - Weight 63.5 kg (140 lb) 08/16/2024 11:40 AM HARDWARE TEST ENGINEER Height 167.6 cm (5' 6) 08/16/2024 11:40 AM HARDWARE TEST ENGINEER Body Mass Index 22.6 08/16/2024 11:40 AM HARDWARE TEST ENGINEER Plan of Treatment Health Maintenance Due Date Last Done Comments Albumin Creatinine Ratio, Urine 1937 Hemoglobin A1C 1937 Osteoporosis Screening-Bone Density Scan 1937 eGFR 1937 Dilated Eye Exam 1937 Foot Exam 1937 Hepatitis B Screening 1955 Pneumococcal vaccine 65+ (1 of 2 - PCV) 02/23/1956 Zoster Vaccine (1 of 2) 1987 Well Visit 65+ 2002 Depression Screening 07/02/2020 07/02/2019, 07/02/20 19 Fall Risk Assessment 07/02/2020 07/02/2019 Lipid Panel 05/25/2024 05/25/2023, 12/29, 10/06/2018 Influenza Vaccine (Season Ended) 2025 DTaP/Tdap/Td Vaccine (2 - Td or Tdap) [...] Most Recently Relevant to Health Maintenance Insurance [facility] MEDICARE ADVANTAGE Care Teams Maintenance And Repair Worker Relationship Specialty Start Date End Date Katy Vargas MD [address] [place] [address] PCP - General 10/28/16
--- OUTSIDE RECORDS SUMMARY | 2025-02-17 16:18 | XMS_ITS | Continuity of Care Document ---
Author Organization [facility] Address [address] [place] [address] [address] [place] [address] Phone Care Team Providers Care Sound Printer Name Role Phone Pederson OD, Raza Unavailable Unavailable Procedures Procedure Date Eye Exam & Treatment Refraction Dilated Retinal Exam W Interpretation Ap Advance Directives Directive Yes / No Effective Date File Name No Information Encounters Encounter Description Practice Location Reason(s) For Visit Diagnoses Date Provider Providers Copied on Encounter [facility], [address], [place], [place], [id number], [place] tel:[phone] [facility] No Information 4-200 8 Pederson OD Raza. [address] , [address], [place], [address], [place]. tel:[phone] Referring Provider: Katy Vargas MD, [address] [place] [address], [address]. tel:[phone] Family History Family Member Type Diagnosis Age At Onset No Information Payers Payer name Insurance type Covered green party ID Authoriza tion(s) [place] [id number] Social History Type Description Quantity Date Captured [...]
--- OUTSIDE RECORDS SUMMARY | 2025-02-17 16:18 | XMS_ITS | Clinical Summary ---
Author Organization [facility] Address [address] [place] [address] Care Team Providers Care Bacteriology Research Assistant Name Role Phone Katy Vargas MD Primary Care Provider [phone] Allergies No known active allergies Medications atorvastatin [...] heart failu re with preserved ejection fraction ([facility]) 05/25/2023 NSTEMI (non-ST elevated myoc ardial infarction) ([facility]) 05/25/2023 Family History Medical History Relation Comments [...] declined 05/25/2023 How often do you attend advent or sikh serv ices? Patient declined 05/25/2023 Do you belong to any clubs o r organizations such as advent groups, unions, fraternal or athletic groups, or [...] medical care, and heating? Patient declined 05/25/2023 [facility] - Occupational Stress [...] A M CDT Height 170.2 cm (5' 7) 05/25/2023 10:55 AM CDT Body Mass Index 21.94 05/25/2023 10:55 AM CDT Plan of Treatment Health Maintenance Due Date Last Done Comments ASCVD Statin 1937 Pneumococcal Vaccine: 50+ Years (1 of 2 - PCV) 02/23/1956 Zoster Vaccines (1 of 2) 1987 Annual Medicare Wellness Visit 2002 RSV Immunization or 60+ Years (1 - 1-dose 75+ series) 02/23/2012 COVID-19 Vaccine ( season) 2024 05/24/2022, 06/30/2021, 09/25/2020, Additional history exists ASCVD LDL 05/25/2024 05/25/2023 DTaP, Tdap and [...] this topic Medical Devices Implanted Type Area Automotive Collision Repair Instructor Device Identifier Shelf Expiration Date Model / Serial / Lot Cv Xience 3.0mm X 28mm [place] Mid Lad- 3 Implanted: by Chance Hernandez MD (Quantity not on file) Stent Coronary LAD GARCIA VASCULAR 10/19/2025 [id number] / / [id number] Procedures Procedure Name Priority Date/Time Associated Diagnosis Comments LIPID PANEL STAT 05/25/2023 11:48 AM CDT from Last 3 Months or Most Recently Relevant to Health Maintenance Results * LIPID PANEL (05/25/2023 11:48 AM CDT) CHOLESTEROL 131 MG/DL 05/25/2023 1:43 PM CDT [facility] Comment:DESIRABLE: <200 TRIGLYCERIDES 56 MG/DL 05/25/2023 1:43 PM CDT [facility] Comment:<150 NORMAL HDL 74 >49 MG/DL 05/25/2023 1:43 PM CDT [facility] LDL (CALCULATED) 46 MG/DL 05/25/20 1:43 PM CDT [facility] Comment:<100 OPTIMAL VLDL CALCULATION 11 MG/DL 05/25/20 1:43 PM CDT [facility] Comment:REFERENCE RANGE NOT ESTABLISHED CHOL/HDL RATIO 1.8 05/25/2023 1:43 PM CDT [facility] Comment:REFERENCE RANGE NOT ESTABLISHED LDL/HDL 0.6 05/25/2023 1:43 PM CDT [facility] Comment:REFERENCE RANGE NOT ESTABLISHED NON HDL CHOLESTEROL 57 MG/DL 05/25/2023 1:43 PM CDT [facility] Comment:REFERENCE RANGE NOT ESTABLISHED 05/25/2023 11:4 8 AM CDT Yadira Acosta [facility] Final R esult [facility] [address] [place] [address], [id number] from Last 3 Months or Most Recently Relevant to Health Maintenance [place] [place] [address] [facility] Advance Directives * Full Code (Latest Code Status on File) Date Activated Date Inactivated Comments 05/26/2023 5:23 PM 05/27/2023 2:32 PM * Full Code Date Activated Date Inactivated Comments 05/25/2023 11:21 AM 05/26/2023 5:23 PM Care Teams Bacteriology Research Assistant Relationship Specialty Start Date End Date Katy Vargas MD [address] [place] [address] PCP - General INTERNAL MEDICINE 05/25/23
--- OUTSIDE RECORDS SUMMARY | 2025-02-17 16:18 | XMS_ITS | Encounter Summary ---
Author Organization [facility] Address [address] [place] [address] Care Team Providers Care Risk Investigator Name Role Phone Katy Vargas MD Primary Care Provider [phone] Encounter Details Date Type Department Care Team (Late st Contact Info) Description 05/29/2023 Hospital Follow-up Call [facility] Cardiovascular Care Unit [address] [place] [address] Sharla Capps RN Social History [...] declined 05/25/2023 How often do you attend rastafari or hinduism serv ices? Patient declined 05/25/2023 Do you belong to any clubs o r organizations such as rastafari groups, unions, fraternal or athletic groups, or [...] medical care, and heating? Patient declined [facility] - Occupational Stress Questionnaire Answer Date Recorded [...] place to sleep or slept in a skilled nursing (including now)? Patient refused 05/25/2023 Comments Unknown [...] on filedocumented in this encounter Care Teams Risk Investigator Relationship Specialty Start Date End Date Katy Vargas MD [address] [place] [address] PCP - General INTERNAL MEDICINE 05/25/23 documented as of this encounter
--- OUTSIDE RECORDS SUMMARY | 2025-02-17 16:19 | XMS_ITS | Encounter Summary ---
Author Organization [facility] Address [address] [place] [address] Care Team Providers Care Web Site Developer Name Role Phone Katy Vargas MD Primary Care Provider + [phone] Katy Vargas MD Primary Care Provider + [phone] Encounter Details Date Type Department Care Team (Late st Contact Info) Description 09/12/2016 Orders Only [facility] ProviderIvon MD [address] [place] [address] Social History Tobacco Use Types Packs/Day Years Used Date Smoking Tobacco: Never Alcohol Use Standard Drinks/Week Comments No 0 (1 standard drink = 0.6 oz pur e alcohol) Comments Unknown Sex and Gender Information Value Date Recorded Sex Assigned at Not on file Legal Sex Female 9:16 AM BRICKMASON APPRENTICE Gender Identity Not on file Sexual Orientation [...] on filedocumented in this encounter Care Teams Web Site Developer Relationship Specialty Start Date End Date Katy Vargas MD [address] [place] [address] PCP - General 10/28/16 Katy Vargas MD [address] [place] [address] PCP - General 12/13/12 10/27/16 documented as of this encounter
[2025-02-17 16:39] LABS: Hematocrit 40.2 % (35.0-42.0); Hemoglobin 12.9 g/dL (11.7-13.8); Mean Corpuscular HGB Conc 32.1 g/dL (32-36); Mean Corpuscular Hemoglobin 31.3 pg (27.0-31.0); Mean Corpuscular Volume 97.6 fL (78.0-102.0); Platelet Count Result 147 K/mm3 (150-420); Red Blood Count 4.12 M/mm3 (4.20-5.40); White Blood Count 6.4 K/mm3 (4.8-10.8)
[2025-02-17 16:49] LABS: Alanine Aminotransferase 54 U/L (6-35); Albumin Level 4.2 g/dL (3.5-5.1); Alkaline Phosphatase 99 U/L (38-126); Anion Gap 4 mmol/L (4-12); Aspartate Amino Transferase 94 U/L (14-36); Bilirubin,Total 0.8 mg/dL (0.2-1.3); Blood Urea Nitrogen 30 mg/dL (7-17); Calcium 9.6 mg/dL (8.4-10.2); Carbon Dioxide 30 mmol/L (22-30); Chloride 107 mmol/L (98-107); Estimated Glomerular Filt Rate 50; Glucose 131 mg/dL (65-110); Iron 84 ug/dL (37-170); Osmolality Calculated 300 mOsm/kg (285-295); Potassium 4.5 mmol/L (3.4-5.0); Sodium 141 mmol/L (137-145); Total Protein 7.2 g/dL (6.3-8.2)
[2025-02-17 17:07] LABS: Free T4 Free Thyroxine 1.25 ng/dL (0.78-2.19)
[2025-02-17 17:21] LABS: Thyroid Stimulating Hormone 1.480 uIU/mL (0.465-4.680)
[2025-02-17 17:25] LABS: Ferritin 73.40 ng/mL (11.1-264); Free T3 3.43 pg/mL (2.18-3.98)
[2025-02-17 17:40] LABS: Vitamin B12 > 1000.0 pg/mL (239-931)
== END 2025-02-17 16:16 | disposition home or self-care (01) ==
LOC: CHSLAB 16:17
PROVIDERS: PCP Internal Medicine; Visit Provider Internal Medicine
DX: L29.9 Pruritus, unspecified (principal); D64.9 Anemia, unspecified
CPT/HCPCS: 36415; 80053; 82607; 82728; 83540; 84439; 84443; 84481; 85027

== ENCOUNTER 2025-02-24 13:58 | Outpatient (CLI) | payer MEDICARE, SELFPAY ==
--- NOTE | ~2025-02-24 | CT_ITS ---
EXAMINATION: CT abdomen w con DATE: 02/24/2025 14:44 INDICATION: Elevated liver enzymes TECHNIQUE: Computed tomography (CT) of the abdomen and pelvis was performed with 100 mL Omnipaque-350 intravenous contrast. Automated exposure control and iterative reconstruction technique were employe d. The dose-length product was 176.97 mGy-cm. COMPARISON: None FINDINGS: Mild elevation the left hemidiaphragm. Mild dependent atelectasis in bilateral lower lobes. Heart siz e is normal with biatrial enlargement. Atherosclerotic coronary artery calcific lesions and mitral an nular calcification. No pericardial effusion. Likely diffuse hepatic steatosis although specificities decreased by the presence of intravenous contrast. Gallbladder, spleen, pancreas, bilateral adrenal glands and right kidney are normal. No intra or extrahepatic biliary ductal dilation. Region of corti dano scarring at the interpolar region of the right kidney, likely sequela prior infection or infarcti on. Surgical clips near the tip of the cecum which may relate to prior appendectomy. No bowel obstruc tion. No pathologically enlarged abdominal or upper pelvic lymphadenopathy. Mild lumbar levoscoliosis with severe spondylosis. There are bridging osteophytes at multiple levels in the visualized lower t horacic and upper lumbar spine consistent with diffuse idiopathic skeletal hyperostosis (DISH). IMPRESSION: 1. Suggestion of diffuse hepatic steatosis although specificities decreased by the resident intraveno us contrast. No intra or extrahepatic biliary ductal dilation. 2. Normal heart size with biatrial enlargement. Reviewed, dictated and finalized at location A. IMPRESSION: 1. Suggestion of diffuse hepatic steatosis although specificities decreased by the resident intravenous contrast. No intra or extrahepatic biliary ductal dila tion. 2. Normal heart size with biatrial enlargement.
--- OUTSIDE RECORDS SUMMARY | 2025-02-24 14:04 | XMS_ITS | Encounter Summary ---
Author Organization [facility] Address [address] [place] [address] Care Team Providers Care Food Technician Name Role Phone Katy Vargas MD Primary Care Provider [phone] Encounter Details Date Type Department Care Team (Late st Contact Info) Description 05/29/2023 Hospital Follow-up Call [facility] Cardiovascular Care Unit [address] [place] [address] Sharla Capps RN Social History [...] How often do you attend rastafari or moravian serv ices? Patient declined 05/25/2023 Do you [...] heating? Patient declined [facility] [place] - Occupational Stress Questionnaire Answer Date Recorded [...] place to sleep or slept in a half-way (including now)? Patient refused 05/25/2023 Comments Unknown [...] on filedocumented in this encounter Care Teams Food Technician Relationship Specialty Start Date End Date Katy Vargas MD [address] [place] [address] PCP - General INTERNAL MEDICINE 05/25/23 documented as of this encounter
--- OUTSIDE RECORDS SUMMARY | 2025-02-24 14:04 | XMS_ITS | Continuity of Care Document ---
Author Organization [facility] Address [address] [place] [address] [address] [place] [address] Phone Care Team Providers Care Wire Drawing Setter Name Role Phone Pederson OD, Raza Unavailable Unavailable Procedures Procedure Date Eye Exam & Treatment Refraction Dilated Retinal Exam W Interpretation Ap Advance Directives Directive Yes / No Effective Date File Name No Information Encounters Encounter Description Practice Location Reason(s) For Visit Diagnoses Date Provider Providers Copied on Encounter [facility], [address], [place], [place], [id number], [place] tel:[phone] [facility] No Information 4-200 8 Pederson OD Raza. [address], [place], [address], [place]. tel:[phone] Referring Provider: Katy Vargas MD, [address] [place] [address], [address]. tel:[phone] Family History Family Member Type Diagnosis Age At Onset No Information Payers Payer name Insurance type Covered democrat ID Authoriza tion(s) [place] [id number] Social History Type Description Quantity Date Captured [...]
--- OUTSIDE RECORDS SUMMARY | 2025-02-24 14:04 | XMS_ITS | Clinical Summary ---
Author Organization [facility] Address [address] [place] [address] Care Team Providers Care Refrigeration Installer Name Role Phone Katy Vargas MD Primary Care Provider [phone] Allergies No known active allergies Medications atorvastatin [...] heart failu re with preserved ejection fraction ([facility]) 05/25/2023 NSTEMI (non-ST elevated myoc ardial infarction) ([facility]) 05/25/2023 Family History Medical History Relation Comments [...] declined 05/25/2023 How often do you attend mu-ism or methodist serv ices? Patient declined 05/25/2023 Do you belong to any clubs o r organizations such as mu-ism groups, unions, fraternal or athletic groups, or [...] medical care, and heating? Patient declined 05/25/2023 [facility] - Occupational [...] this topic Medical Devices Implanted Type Area Financial Services Director Device Identifier Shelf Expiration Date Model / Serial / Lot Cv Xience 3.0mm X 28mm [place] Mid Lad- 3 Implanted: by Chance Hernandez MD (Quantity not on file) Stent Coronary LAD GARCIA VASCULAR 10/19/2025 [id number] / / [id number] Procedures Procedure Name Priority Date/Time Associated Diagnosis Comments LIPID PANEL STAT 05/25/2023 11:48 AM CDT from Last 3 Months or Most Recently Relevant to Health Maintenance Results * LIPID PANEL (05/25/2023 11:48 AM CDT) CHOLESTEROL 131 MG/DL 05/25/2023 1:43 PM CDT [facility] Comment:DESIRABLE: <200 TRIGLYCERIDES 56 MG/DL 05/25/2023 1:43 PM CDT [facility] Comment:<150 NORMAL HDL 74 >49 MG/DL 05/25/2023 1:43 PM CDT [facility] LDL (CALCULATED) 46 MG/DL 05/25/20 1:43 PM CDT [facility] Comment:<100 OPTIMAL VLDL CALCULATION 11 MG/DL 05/25/20 1:43 PM CDT [facility] Comment:REFERENCE RANGE NOT ESTABLISHED CHOL/HDL RATIO 1.8 05/25/2023 1:43 PM CDT [facility] Comment:REFERENCE RANGE NOT ESTABLISHED LDL/HDL 0.6 05/25/2023 1:43 PM CDT [facility] Comment:REFERENCE RANGE NOT ESTABLISHED NON HDL CHOLESTEROL 57 MG/DL 05/25/2023 1:43 PM CDT [facility] Comment:REFERENCE RANGE NOT ESTABLISHED 05/25/2023 11:4 8 AM CDT Yadira Acosta [facility] Final R esult [facility] [address] [place] [address], [id number] from Last 3 Months or Most Recently Relevant to Health Maintenance [place] [address] [place] [address] [facility] Advance Directives * Full Code (Latest Code Status on File) Date Activated Date Inactivated Comments 05/26/2023 5:23 PM 05/27/2023 2:32 PM * Full Code Date Activated Date Inactivated Comments 05/25/2023 11:21 AM 05/26/2023 5:23 PM Care Teams Refrigeration Installer Relationship Specialty Start Date End Date Katy Vargas MD [address] [place] [phone] PCP - General INTERNAL MEDICINE 05/25/23
--- OUTSIDE RECORDS SUMMARY | 2025-02-24 14:05 | XMS_ITS | Clinical Summary ---
Author Organization [facility] [address] Address [address] [place] [address] Care Team Providers Care Pinmaker Name Role Phone Katy Vargas MD Primary Care Provider + [phone] Allergies No known active allergies Medications metFORMIN (GLUCOPHAGE) 500 mg tablet take 2 tablet by oral route 2 times every day with morning and evening meals 0 013 Active lisinopril (PRINIVIL,ZESTRIL) 10 mg tablet take 1 tablet by ORAL route every day 0 0 017 Active cholecalciferol (VITAMIN D-3) 5,000 unit capsule Take 1 capsule (5,000 Units total) by mouth daily Active metoprolol XL (TOPROL-XL) 50 mg 24 hr tablet Take 1 tablet (50 mg total) by mouth daily 0 019 Active atorvastatin (LIPITOR) 40 mg tabletIndications:C oronary arteriosclerosis in seminole artery,Multiple-typ e hyperlipidemia TAKE 1 TABLET BY MOUTH EVERY DAY 90 tablet 021 Active sotaloL (BETAPACE) 120 mg tabletIndications:P aroxysmal atrial fibrillation (HCC) Take 1 tablet (120 mg total) by mouth 2 (two) times a day 180 tablet [address] (PROTONIX) 40 mg EC tablet Take 1 tablet (40 mg total) by mouth daily 023 Active furosemide (LASIX) 40 mg tablet Take 1 tablet (40 mg total) by mouth daily Active aspirin (Enteric Coated Aspirin) 81 mg enteric coated tabletIndications:C oronary artery disease involving seminole coronary artery of seminole heart without angina pectoris Take 1 tablet (81 mg total) by mouth daily 023 Active celecoxib (CeleBREX) 200 mg capsule Take 1 capsule (200 mg total) by mouth daily Active ferrous sulfate 134 mg (27 mg of elemental iron) tabletIndications:I leni Deficiency Anemia Take 1 tablet (134 mg total) by mouth daily with breakfast Active isosorbide mononitrate ER (IMDUR) 30 mg 24 hr tabletIndications: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 01/07 Overview (11/04/2016): CAD in seminole artery Assessment & Plan (03/21/2017 6:47 PM [...] on file Legal Sex Female 9:16 AM STRUCTURAL MANAGER Gender Identity Not on file Sexual Orientation Not on file Obstetrics History Last Filed Vital Signs Vital Sign Reading Time Taken Comments Blood Pressure 140/60 08/16/2024 11:40 AM STRUCTURAL MANAGER Pulse 64 08/16/2024 11:40 AM STRUCTURAL MANAGER Temperature 36.5 C (97.7 F) 07/02/2019 1:39 PM STRUCTURAL MANAGER Respiratory Rate 18 07/02/2019 1:39 PM STRUCTURAL MANAGER Oxygen Saturation 99% 08/16/2024 11:40 AM STRUCTURAL MANAGER Inhaled Oxygen Concentration - - Weight 63.5 kg (140 lb) 08/16/2024 11:40 AM STRUCTURAL MANAGER Height 167.6 cm (5' 6) 08/16/2024 11:40 AM STRUCTURAL MANAGER Body Mass Index 22.6 08/16/2024 11:40 AM STRUCTURAL MANAGER Plan of Treatment Health Maintenance Due Date [...] Panel 05/25/2024 05/25/2023, 12/29, 10/06/2018 Influenza Vaccine (#1) 2025 DTaP/Tdap/Td Vaccine (2 - Td or [...] Most Recently Relevant to Health Maintenance Insurance [facility] MEDICARE ADVANTAGE Care Teams Pinmaker Relationship Specialty Start Date End Date Katy Vargas MD [address] [place] [address] PCP - General 10/28/16
--- OUTSIDE RECORDS SUMMARY | 2025-02-24 14:05 | XMS_ITS | Encounter Summary ---
Author Organization [facility] Address [address] [place] [address] Care Team Providers Care Balance Wheel Arm Burnisher Name Role Phone Katy Vargas MD Primary Care Provider + [phone] Katy Vargas MD Primary Care Provider + [phone] Encounter Details Date Type Department Care Team (Late st Contact Info) Description 09/12/2016 Orders Only [facility] ProviderIvon MD [address] [place] [address] Social History Tobacco Use Types Packs/Day Years Used Date Smoking Tobacco: Never Alcohol Use Standard Drinks/Week Comments No 0 (1 standard drink = 0.6 oz pur e alcohol) Comments Unknown Sex and Gender Information Value Date Recorded Sex Assigned at Not on file Legal Sex Female 9:16 AM HIDE CLEANER Gender Identity Not on file Sexual Orientation [...] on filedocumented in this encounter Care Teams Balance Wheel Arm Burnisher Relationship Specialty Start Date End Date Katy Vargas MD [address] [place] [address] PCP - General 10/28/16 Katy Vargas MD [address] [place] [address] PCP - General 12/13/12 10/27/16 documented as of this encounter
[2025-02-24 14:23] LABS: Estimated Glomerular Filt Rate 46
== END 2025-02-24 13:59 | disposition home or self-care (01) ==
LOC: CHSIMG 14:00
PROVIDERS: PCP Internal Medicine; Visit Provider Internal Medicine
DX: R74.8 Abnormal levels of other serum enzymes (principal); K74.60 Unspecified cirrhosis of liver
CPT/HCPCS: 74160; Q9967

== ENCOUNTER 2025-03-03 14:31 | Outpatient (CLI) | payer MEDICARE, SELFPAY ==
--- OUTSIDE RECORDS SUMMARY | 2025-03-03 14:43 | XMS_ITS | Continuity of Care Document ---
Author Organization [facility] Address [address] [place] [address] [address] [place] [address] Phone Care Team Providers Care Review Analyst Name Role Phone Pederson OD, Raza Unavailable Unavailable Procedures Procedure Date Eye Exam & Treatment Refraction Dilated Retinal Exam W Interpretation Ap Advance Directives Directive Yes / No Effective Date File Name No Information Encounters Encounter Description Practice Location Reason(s) For Visit Diagnoses Date Provider Providers Copied on Encounter [facility], [address], [place], [place], [id number], [place] tel:[phone] [facility] No Information 4-200 8 Pederson OD Raza. [address] , [address], [place], [address], [place]. tel:[phone] Referring Provider: Katy Vargas MD, [address] [place] [address], [address]. tel:[phone] Family History Family Member Type Diagnosis Age At Onset No Information Payers Payer name Insurance type Covered libertarian ID Authoriza tion(s) [place] [id number] Social History Type Description Quantity Date Captured [...]
--- OUTSIDE RECORDS SUMMARY | 2025-03-03 14:43 | XMS_ITS | Referral Summary ---
Author Organization [facility] [place] [address] Address [address] [place] [address] Care Team Providers Care Sales Order Administrator Name Role Phone Katy Vargas MD Primary Care Provider + [phone] Allergies No known active allergies Medications metFORMIN [...] (LIPITOR) 40 mg tabletIndications:C oronary arteriosclerosis in [place] artery,Multiple-typ e hyperlipidemia TAKE 1 TABLET BY [...] enteric coated tabletIndications:C oronary artery disease involving [place] coronary artery of [place] heart without angina pectoris Take 1 tablet [...] 24 hr tabletIndications:C oronary artery disease of [place] artery of [place] heart with stable angina pectoris TAKE 1 [...] 07/02/2019 Assessment & Plan (07/02/2019 2:10 PM DATA DELIVERABLES MANAGER): Colonoscopy 2012. C/o erratic bms last [...] Old myocardial infarction 03/11/2016 Overview (11/04/2016): Old VA (myocardial infarction) Multiple-type hyperlipidemia 03/11/2016 Overview (11/04/2016): Mixed hyperlipidemia Assessment & Plan (03/21/2017 6:46 PM CDT): 09/2016 total cholesterol 221, HDL 73, TG 80, LDL 132 Has refused statin therapy. Diabetes mellitus with coincident hypertension 0 01/08/2016 Overview (11/04/2016): Essential hypertension Coronary arteriosclerosis in [place] artery 01/07 Overview (11/04/2016): CAD in [place] artery Assessment & Plan (03/21/2017 6:47 PM [...] on file Legal Sex Female 9:16 AM DATA DELIVERABLES MANAGER Gender Identity Not on file Sexual Orientation Not on file Last Filed Vital Signs Vital Sign Reading Time Taken Comments Blood Pressure 140/60 08/16/2024 11:40 AM DATA DELIVERABLES MANAGER Pulse 64 08/16/2024 11:40 AM DATA DELIVERABLES MANAGER Temperature 36.5 C (97.7 F) 07/02/2019 1:39 PM DATA DELIVERABLES MANAGER Respiratory Rate 18 07/02/2019 1:39 PM DATA DELIVERABLES MANAGER Oxygen Saturation 99% 08/16/2024 11:40 AM DATA DELIVERABLES MANAGER Inhaled Oxygen Concentration - - Weight 63.5 kg (140 lb) 08/16/2024 11:40 AM DATA DELIVERABLES MANAGER Height 167.6 cm (5' 6) 08/16/2024 11:40 AM DATA DELIVERABLES MANAGER Body Mass Index 22.6 08/16/2024 11:40 AM DATA DELIVERABLES MANAGER Plan of Treatment Not on file Procedures [...] Most Recently Relevant to Health Maintenance Insurance [employer] MEDICARE ADVANTAGE Care Teams Sales Order Administrator Relationship Specialty Start Date End Date Katy Vargas MD [address] [place] [address] PCP - General 10/28/16
--- OUTSIDE RECORDS SUMMARY | 2025-03-03 14:43 | XMS_ITS | Encounter Summary ---
Author Organization [facility] Address [address] [place] [address] Care Team Providers Care Clinical Supervisor Name Role Phone Katy Vargas MD Primary Care Provider + [phone] Katy Vargas MD Primary Care Provider + [phone] Encounter Details Date Type Department Care Team (Late st Contact Info) Description 09/12/2016 [facility] Only [facility] ProviderIvon MD [address] [place] [address] Social History Tobacco Use Types Packs/Day Years Used Date Smoking Tobacco: Never Alcohol Use Standard Drinks/Week Comments No 0 (1 standard drink = 0.6 oz pur e alcohol) Comments Unknown Sex and Gender Information Value Date Recorded Sex Assigned at Not on file Legal Sex Female 9:16 AM PHYSICIAN OFFICE REP Gender Identity Not on file Sexual Orientation [...] on filedocumented in this encounter Care Teams Clinical Supervisor Relationship Specialty Start Date End Date Katy Vargas MD [address] [place] [address] PCP - General 10/28/16 Katy Vargas MD [address] [place] [address] PCP - General 12/13/12 10/27/16 documented as of this encounter
--- OUTSIDE RECORDS SUMMARY | 2025-03-03 14:43 | XMS_ITS | Encounter Summary ---
Author Organization [facility] Address [address] [place] [address] Care Team Providers Care Environmental Laboratory Technician Name Role Phone Katy Vargas MD Primary Care Provider [phone] Encounter Details Date Type Department Care Team (Late st Contact Info) Description 05/29/2023 Hospital Follow-up Call [facility] Unit [address] [place] [address] Sharla Capps RN Social History [...] declined 05/25/2023 How often do you attend faith or synagogue serv ices? Patient declined 05/25/2023 Do you belong to any clubs o r organizations such as faith groups, unions, fraternal or athletic groups, or [...] heating? Patient declined [facility] - Occupational Stress Questionnaire Answer [...] place to sleep or slept in a long-term (including now)? Patient refused 05/25/2023 Comments Unknown [...] on filedocumented in this encounter Care Teams Environmental Laboratory Technician Relationship Specialty Start Date End Date Katy Vargas MD [address] [place] [id number] PCP - General INTERNAL MEDICINE 05/25/23 documented as of this encounter
--- OUTSIDE RECORDS SUMMARY | 2025-03-03 14:43 | XMS_ITS | Clinical Summary ---
Author Organization [facility] Address [address] [place] [address] Care Team Providers Care Fast Food Sales Assistant Name Role Phone Katy Vargas MD Primary Care Provider [phone] Allergies No known active allergies Medications atorvastatin [...] heart failu re with preserved ejection fraction ([facility]) 05/25/2023 NSTEMI (non-ST elevated myoc ardial infarction) ([facility]) 05/25/2023 Family History Medical History Relation [...] declined 05/25/2023 How often do you attend confucianism or mormonism serv ices? Patient declined 05/25/2023 Do you belong to any clubs o r organizations such as confucianism groups, unions, fraternal or athletic groups, or [...] medical care, and heating? Patient declined 05/25/2023 [facility] - [...] place to sleep or slept in a usp (including now)? Patient refused 05/25/2023 Comments Unknown [...] this topic Medical Devices Implanted Type Area Metal Sander And Finisher Device Identifier Shelf Expiration Date Model / Serial / Lot Cv Xience 3.0mm X 28mm [place] Mid Lad- 3 Implanted: by Chance Hernandez MD (Quantity not on file) Stent Coronary LAD GARCIA VASCULAR 10/19/2025 [id number] / / [id number] Procedures Procedure Name Priority Date/Time Associated Diagnosis Comments LIPID PANEL STAT 05/25/2023 11:48 AM CDT from Last 3 Months or Most Recently Relevant to Health Maintenance Results * LIPID PANEL (05/25/2023 11:48 AM CDT) CHOLESTEROL 131 MG/DL 05/25/2023 1:43 PM CDT [facility] Comment:DESIRABLE: <200 TRIGLYCERIDES 56 MG/DL 05/25/2023 1:43 PM CDT [facility] Comment:<150 NORMAL HDL 74 >49 MG/DL 05/25/2023 1:43 PM CDT [facility] LDL (CALCULATED) 46 MG/DL 05/25/20 1:43 PM CDT [facility] Comment:<100 OPTIMAL VLDL CALCULATION 11 MG/DL 05/25/20 1:43 PM CDT [facility] Comment:REFERENCE RANGE NOT ESTABLISHED CHOL/HDL RATIO 1.8 05/25/2023 1:43 PM CDT [facility] Comment:REFERENCE RANGE NOT ESTABLISHED LDL/HDL 0.6 05/25/2023 1:43 PM CDT [facility] Comment:REFERENCE RANGE NOT ESTABLISHED NON HDL CHOLESTEROL 57 MG/DL 05/25/2023 1:43 PM CDT [facility] Comment:REFERENCE RANGE NOT ESTABLISHED 05/25/2023 11:4 8 AM CDT Yadira Acosta [facility] Final R esult [facility] [address] [place] [address], [phone] from Last 3 Months or Most Recently Relevant to Health Maintenance Insurance [place] [address] [address] [facility] Advance Directives * Full Code (Latest Code Status on File) Date Activated Date Inactivated Comments 05/26/2023 5:23 PM 05/27/2023 2:32 PM * Full Code Date Activated Date Inactivated Comments 05/25/2023 11:21 AM 05/26/2023 5:23 PM Care Teams Fast Food Sales Assistant Relationship Specialty Start Date End Date Katy Vargas MD [address] [place] [id number] PCP - General INTERNAL MEDICINE 05/25/23
--- OUTSIDE RECORDS SUMMARY | 2025-03-03 14:43 | XMS_ITS | Clinical Summary ---
Author Organization [facility] [address] Address [address] [place] [address] Care Team Providers Care Salvage Inspector Name Role Phone Katy Vargas MD Primary Care Provider + [phone] Allergies No known active allergies Medications metFORMIN [...] (LIPITOR) 40 mg tabletIndications:C oronary arteriosclerosis in [place] artery,Multiple-typ e hyperlipidemia TAKE 1 TABLET BY [...] enteric coated tabletIndications:C oronary artery disease involving [place] coronary artery of [place] heart without angina pectoris Take 1 tablet [...] 24 hr tabletIndications:C oronary artery disease of [place] artery of [place] heart with stable angina pectoris TAKE 1 [...] 07/02/2019 Assessment & Plan (07/02/2019 2:10 PM LEARNING COORDINATOR): Colonoscopy 2012. C/o erratic bms last months [...] Overview (11/04/2016): Essential hypertension Coronary arteriosclerosis in [place] artery 01/07 Overview (11/04/2016): CAD in [place] artery Assessment & Plan (03/21/2017 6:47 PM [...] on file Legal Sex Female 9:16 AM LEARNING COORDINATOR Gender Identity Not on file Sexual Orientation Not on file Obstetrics History Last Filed Vital Signs Vital Sign Reading Time Taken Comments Blood Pressure 140/60 08/16/2024 11:40 AM LEARNING COORDINATOR Pulse 64 08/16/2024 11:40 AM LEARNING COORDINATOR Temperature 36.5 C (97.7 F) 07/02/2019 1:39 PM LEARNING COORDINATOR Respiratory Rate 18 07/02/2019 1:39 PM LEARNING COORDINATOR Oxygen Saturation 99% 08/16/2024 11:40 AM LEARNING COORDINATOR Inhaled Oxygen Concentration - - Weight 63.5 kg (140 lb) 08/16/2024 11:40 AM LEARNING COORDINATOR Height 167.6 cm (5' 6) 08/16/2024 11:40 AM LEARNING COORDINATOR Body Mass Index 22.6 08/16/2024 11:40 AM LEARNING COORDINATOR Plan of Treatment Health Maintenance Due Date [...] Most Recently Relevant to Health Maintenance Insurance [facility] MEDICARE ADVANTAGE [facility] Address: [address] [address] Care Teams Salvage Inspector Relationship Specialty Start Date End Date Katy Vargas MD [address] [place] [address] PCP - General 10/28/16
[2025-03-03 15:14] LABS: Hemoglobin A1C 7.8 % (<5.7)
[2025-03-03 15:41] LABS: Cholesterol 160 mg/dL (0-200); Creatine Kinase 207 U/L (30-135); HDL Direct 76 mg/dL; Triglycerides 138 mg/dL (<150)
[2025-03-03 15:59] LABS: GGT 74 U/L (12-43)
[2025-03-05 18:08] LABS: ANA by IFA Rfx Titer/Pattern Negative (.)
== END 2025-03-03 14:32 | disposition home or self-care (01) ==
LOC: CHSLAB 14:33
PROVIDERS: PCP Internal Medicine; Visit Provider Internal Medicine
DX: E11.40 Type 2 diabetes mellitus with diabetic neuropathy, unspecified (principal); E78.2 Mixed hyperlipidemia; R74.01 Elevation of levels of liver transaminase levels
CPT/HCPCS: 36415; 80061; 82550; 82977; 83036; 86015; 86038

== ENCOUNTER 2025-05-30 13:11 | Emergency (ER) | payer MEDICARE, SELFPAY ==
--- OUTSIDE RECORDS SUMMARY | 2007-11-02 08:51 | XMS_ITS | Continuity of Care Document ---
Author Organization [facility] Address [address] [place] [address] [place] [address] Phone Care Team Providers Care Hand Molder And Caster Name Role Phone Pederson OD, Raza Unavailable Unavailable Procedures Procedure Date Eye Exam & Treatment Refraction Dilated Retinal Exam W Interpretation Ap Advance Directives Directive Yes / No Effective Date File Name No Information Encounters Encounter Description Practice Location Reason(s) For Visit Diagnoses Date Provider Providers Copied on Encounter [facility], [address], [place], [place], [id number], [place] tel:[phone] [facility] No Information [phone] Pederson OD Raza. [address] , [address], [place], [address], [place]. tel:[phone] Referring Provider: Katy Vargas MD, [address] [place] [address], [address]. tel:[phone] Family History Family Member Type Diagnosis Age At Onset No Information Payers Payer name Insurance type Covered libertarian ID Authoriza tion(s) [place] [id number] Social History Type Description Quantity Date Captured Comments Sex Female Smoking Status No Information Chief Complaint And Reason For Visit No Information Reason For Referral Reason For Referral No Information History Of Present Illness Encounter Date Complaint History Of Prese nt Illness No Information Functional Status Date Functional Assessmen t No Information Instructions Date Instruction Additional Infor mation No Information Assessments Type Assessment Date No Information Patient Care Teams Name Effective Dates (start - stop) Status Members No Information
[2025-05-30] VITALS (21 sets, daily range): BP systolic 114–152; BP diastolic 68–105; PULSE 57–137; RESP 15–21; TEMP 36.3; O2SAT 94–100
--- NOTE | ~2025-05-30 | CT_ITS ---
EXAMINATION: CTA chest PE protocol DATE: 05/30/2025 15:22 CDT INDICATION: Chest pain. Shortness of breath TECHNIQUE: Computed tomographic angiography (CTA) of the chest was performed with 100 mL Omnipaque-350 intravenous contrast. The dose-length product was 239.70 mGy-cm. Maximum intensity projection 3D-reconstructions of the aorta and other arteries were constructed by the technologist on a separate workstation. COMPARISON: 10/17/2022 FINDINGS: No pulmonary embolism identified. Heart is moderately enlarged. There are a few too small to characterize low-attenuation lesions in the kidneys. Thoracic aorta is not aneurysmal but is partially calcified. The patient's arms are down which causes artifact which limits evaluation. Small amount of reflux of contrast into the inferior vena cava. Tracheal bronchial tree is patent. No pneumothorax. No pleural effusion. No focal mass. No focal pulmonary consolidation. Mild paraseptal and centrilobular emphysema. Small reticular and groundglass opacities in the mid and lower lungs most prominent in the lower lobes. Multilevel degenerative change throughout the visualized spine. Bones appear osteopenic which lowers the sensitivity of the study. IMPRESSION: 1. No pulmonary embolism identified. 2. Small reticular and groundglass opacities in the mid and lower lungs most prominent in the lower lobes. Differential includes but is not limited to atelectasis or an inflammatory/infectious process. Reviewed, dictated and finalized at location Q. IMPRESSION: 1. No pulmonary embolism identified. 2. Small reticular and groundglass opacities in the mid and lower lungs most pr ominent in the lower lobes. Differential includes but is not limited to atelect asis or an inflammatory/infectious process.
--- NOTE | ~2025-05-30 | XR_ITS ---
Examination: XR chest 1V portable Clinical History: Chest pain Comparison: 05/25/2023 Technique: Portable AP Findings: Unchanged cardiomegaly. Lungs clear. Mild hyperinflation No acute bony abnormality. IMPRESSION: 1. No acute cardiopulmonary findings given portable technique. Reviewed, dictated and finalized at location R.
--- NOTE | 2025-05-30 13:13 | ECG_ITS ---
Test Date: 2025-05-30 13:19:06 Measurements Intervals [place] Rate: 114 P: 0 AL: 0 QRS: -39 QRSD: 79 T: 77 QT: 296 QTc: 409 Interpretive Statements ATRIAL FIBRILLATION WITH RAPID VENTRICULAR RESPONSE LEFT AXIS DEVIATION DELAYED PRECORDIAL R/S TRANSITION BORDERLINE ST-T WAVE ABNORMALITY- HIGH LATERAL LEADS BASELINE ARTIFACT- I, II, AVR ABNORMAL ECG No previous ECG available for comparison Electronically Signed On 05-30-2025 13:28:11 CDT by Sushant Ortiz D.O.
--- OUTSIDE RECORDS SUMMARY | 2025-05-30 13:13 | XMS_ITS | Encounter Summary ---
Author Organization [facility] Address [address] [place] [address] Care Team Providers Care Terminal Operations Manager Name Role Phone Katy Vargas MD Primary Care Provider [phone] Encounter Details Date Type Department Care Team (Late st Contact Info) Description 05/29/2023 Hospital Follow-up Call [facility] Cardiovascular Care Unit [address] [place] [address] Sharla Capps RN Social History [...] declined 05/25/2023 Social Connection and Isolation Panel Answer Date Recorded In a typical week, how many times do you talk on the phone with family, friends, or neighbors? Patient declined 05/25/2023 How often do you get togethe r with friends or relatives? Patient declined 05/25/2023 How often do you attend mormonism or anabaptist serv ices? Patient declined 05/25/2023 Do you belong to any clubs o r organizations such as mormonism groups, unions, fraternal or athletic groups, or [...] medical care, and heating? Patient declined 05/25/2023 [facility] - Occupational [...] place to sleep or slept in a long term (including now)? Patient refused 05/25/2023 Comments Unknown [...] on filedocumented in this encounter Care Teams Terminal Operations Manager Relationship Specialty Start Date End Date Katy Vargas MD [address] [place] [address] PCP - General INTERNAL MEDICINE 05/25/23 documented as of this encounter
--- OUTSIDE RECORDS SUMMARY | 2025-05-30 13:13 | XMS_ITS | Clinical Summary ---
Author Organization [facility] Address [address] [place] [address] Care Team Providers Care Account Support Associate Name Role Phone Katy Vargas MD Primary Care Provider [phone] Allergies No known active allergies Medications atorvastatin [...] heart failu re with preserved ejection fraction 05/25/2023 NSTEMI (non-ST elevated myocardial infarction) 1 Family History Medical History Relation Comments Coronary [...] declined 05/25/2023 How often do you attend christian or samaritan serv ices? Patient declined 05/25/2023 Do you belong to any clubs o r organizations such as christian groups, unions, fraCrowdSling or athletic groups, or school groups? Patient [...] medical care, and heating? Patient declined 05/25/2023 [facility] - [...] place to sleep or slept in a intermediate (including now)? Patient refused 05/25/2023 Comments Unknown [...] Years (1 - 1-dose 75+ series) 02/23/2012 ASCVD LDL 05/25/2024 05/25/2023 COVID-19 Vaccine ( - season) 2025 05/24/2022, 06/30/2021, 09/25/2020, Additional history exists Influenza Adult (#1) 2025 DTaP, Tdap and Td Vaccines (2 - Td or Tdap) 02/24/2027 02/24/2017, 11/08/2004 Hepatitis A Vaccines Aged Out No long er eligible based on patient's age to complete this topic Meningococcal B Vaccine Aged Out No l onger eligible based on patient's age to complete this topic Meningococcal Vaccine Aged Out No shad claudette eligible based on patient's age to complete this topic RSV Immunizations Under 20 Months Aged Out No longer eligible based on patient's age to complete this topic Medical Devices Implanted Type Area Records And Tape Recordings Engineer Device Identifier Shelf Expiration Date Model / Serial / Lot Cv Xience 3.0mm X 28mm [place] Mid Lad- 3 Implanted: by Chance Hernandez MD (Quantity not on file) Stent Coronary LAD GARCIA VASCULAR 10/19/2025 [id number] / / [id number] Procedures Procedure Name Priority Date/Time Associated Diagnosis Comments LIPID PANEL STAT 05/25/2023 11:48 AM CDT from Last 3 Months or Most Recently Relevant to Health Maintenance Results * LIPID PANEL (05/25/2023 11:48 AM CDT) CHOLESTEROL 131 MG/DL 05/25/2023 1:43 PM CDT [facility] Comment:DESIRABLE: <200 TRIGLYCERIDES 56 MG/DL 05/25/2023 1:43 PM CDT [facility] Comment:<150 NORMAL HDL 74 >49 MG/DL 05/25/2023 1:43 PM CDT [facility] LDL (CALCULATED) 46 MG/DL 05/25/20 1:43 PM CDT [facility] Comment:<100 OPTIMAL VLDL CALCULATION 11 MG/DL 05/25/20 1:43 PM CDT [facility] Comment:REFERENCE RANGE NOT ESTABLISHED CHOL/HDL RATIO 1.8 05/25/2023 1:43 PM CDT [facility] Comment:REFERENCE RANGE NOT ESTABLISHED LDL/HDL 0.6 05/25/2023 1:43 PM CDT [facility] Comment:REFERENCE RANGE NOT ESTABLISHED NON HDL CHOLESTEROL 57 MG/DL 05/25/2023 1:43 PM CDT [facility] Comment:REFERENCE RANGE NOT ESTABLISHED 05/25/2023 11:4 8 AM CDT Yadira Acosta [facility] Final R esult [facility] [address] [place] [address], [phone] from Last 3 Months or Most Recently Relevant to Health Maintenance Insurance [facility] Advance Directives * Full Code (Latest Code Status on File) Date Activated Date Inactivated Comments 05/26/2023 5:23 PM 05/27/2023 2:32 PM * Full Code Date Activated Date Inactivated Comments 05/25/2023 11:21 AM 05/26/2023 5:23 PM Care Teams Account Support Associate Relationship Specialty Start Date End Date Katy Vargas MD [address] [place] [phone] PCP - General INTERNAL MEDICINE 05/25/23
--- OUTSIDE RECORDS SUMMARY | 2025-05-30 13:13 | XMS_ITS | Encounter Summary ---
Author Organization [facility] Address [address] [place] [address] Care Team Providers Care Inventory Specialist Name Role Phone Katy Vargas MD Primary Care Provider + [phone] Katy Vargas MD Primary Care Provider + [phone] Encounter Details Date Type Department Care Team (Late st Contact Info) Description 09/12/2016 Orders Only [facility] ProviderIvon MD [address] [place] [address] Social History Tobacco Use Types Packs/Day Years Used Date Smoking Tobacco: Never Alcohol Use Standard Drinks/Week Comments No 0 (1 standard drink = 0.6 oz pur e alcohol) Comments Unknown Sex and Gender Information Value Date Recorded Sex Assigned at Not on file Legal Sex Female 9:16 AM COMMUNICATIONS WRITER Gender Identity Not on file Sexual Orientation [...] on filedocumented in this encounter Care Teams Inventory Specialist Relationship Specialty Start Date End Date Katy Vargas MD [address] [place] [address] PCP - General 10/28/16 Katy Vargas MD [address] [place] [address] PCP - General 12/13/12 10/27/16 documented as of this encounter
--- NOTE | 2025-05-30 13:14 | ED.CHESTPAIN ---
HPI - Chest Pain General Chief Complaint: Chest Pain Stated Complaint: chest pain Source: patient Mode of arrival: ambulatory Limitations: no limitations History of Present Illness HPI narrative: 89-year-old female with a history of hypertension, CAD status post stent in 05/19/23, atrial fibrillation, diabetes mellitus, dyslipidemia, arthritis, diastolic CHF with an EF of 65-70% with , MR, TR, pulmonary hypertension presents to the ED with --anterior chest pain off and on for the past 1 month. Pain is across the front of the chest. No radiation of the pain. Pain is rated as 5/10. Pain is unprovoked. No nausea/vomiting. No diaphoresis. --chronic shortness of breath. Patient is saturating 99% on room air with a respiratory rate of 19. No fever or chills MD complaint: chest pain Pertinent past history: coronary artery disease and prior MD Onset (ago): month(s) (Pain has been present for 1 month.) Timing of current episode: constant Prior episodes: Yes Onset: during rest Pain location: substernal Pain radiation: none Severity: moderate Pain scale (0-10): 5 Quality: aching Relieving factors: nothing Exacerbating factors: nothing Associated symptoms: cough Treatment prior to arrival: none Risk Factors Coronary artery disease risk factors: diabetes, hyperlipidemia and hypertension Thoracic aortic dissection risk factors: longstanding hypertension Related Data Home Medications ?Medication ?Instructions ?Recorded ?Confirmed ?Last Taken ?Type aspirin 325 mg tablet 325 mg PO DAILY 10/14/20 06/01/22 05/30/25 History atorvastatin 40 mg tablet 40 mg PO DAILY 10/14/20 06/01/22 1 Day Ago History ~05/31/22 cholecalciferol (vitamin D3) 125 125 mcg PO DAILY 10/14/20 06/01/22 05/30/25 History mcg (5,000 unit) capsule lisinopril 10 mg tablet 10 mg PO DAILY 10/14/20 06/01/22 1 Day Ago History ~05/31/22 metformin 500 mg tablet 500 mg PO DAILY 10/14/20 06/01/22 05/30/25 History sotalol 120 mg tablet 120 mg PO Q12H 10/14/20 06/01/22 06/01/22 07:30 History celecoxib 200 mg capsule 200 mg PO DAILY 07/22/21 06/01/22 05/30/25 History metoprolol succinate 50 mg 50 mg PO DAILY 07/22/21 06/01/22 06/01/22 07:30 History tablet,extended release 24 hr pantoprazole 40 mg tablet,delayed 40 mg PO QAM 07/22/21 06/01/22 1 Day Ago History release ~05/31/22 vitamin B complex 1 tablet PO DAILY 07/22/21 06/01/22 05/30/25 History Allergies Allergy/AdvReac Type Severity Reaction Status Date / Time No Known Allergies Allergy Verified 05/30/25 14:44 Review of Systems Review of Systems: All systems reviewed & are unremarkable except as noted in HPI and below Constitutional: Constitutional: Reports as per HPI and Reports no additional constitutional complaints Eyes: Eyes: Reports as per HPI and Reports no additional eye complaints ENT: Reports system reviewed and no additional complaints, except as documented and Reports as per HPI Cardiovascular: Cardiovascular: Reports as per HPI, Reports no additional cardiovascular complaints and Reports chest pain Respiratory: Respiratory: Reports as per HPI, Reports no additional respiratory complaints, Reports cough and Reports dyspnea Gastrointestinal: Gastrointestinal: Reports as per HPI and Reports no additional gastrointestinal complaints Genitourinary: Genitourinary: Reports no additional female genitourinary complaints and Reports as per HPI Musculoskeletal: Musculoskeletal: Reports no additional musculoskeletal complaints and Reports as per HPI Integumentary/Breasts: Skin/Breast: Reports system reviewed and no additional complaints, except as docu and Reports as per HPI Neurologic: Reports system reviewed and no additional complaints, except as documented and Reports as per HPI Psychiatric: Psychiatric: Reports no additional psychiatric complaints and Reports as per HPI Endocrine: Endocrine: Reports no additional endocrine complaints and Reports as per HPI Hematologic/Lymphatic: Hematologic/Lymphatic: Reports no additional hematologic/lymphatic complaints and Reports as per HPI Allergic/Immunologic: Allergic/Immunologic: Reports no additional allergic/immunologic complaints and Reports as per HPI [facility] Past Medical History Medical History Hypertension Hyperlipidemia Atrial fibrillation Diabetes Arthritis Surgical History Surgical History History of appendectomy Family History Family History Mother Hypertension Heart disease Social History Social History Smoking status: Never smoker Second hand tobacco smoke exposure: No Alcohol intake: never Alcohol use details: RARELY Substance use: never Substance use type: does not use Living arrangements: alone Occupation/Education: retired Spiritual care concerns: No Exam Narrative: Blood pressure of 147/105 with a heart rate of 137. Currently heart rate is noted to be 114 Const: Orientation/consciousness: patient oriented x3 Limitations: no limitations HENMT: Head: normal to inspection Ears: external ears normal Face/Nose/Sinus: Normal external nose present Face and sinus: normal facial exam Mouth: Yes Normal oral and palatal mucosa present Throat: posterior oropharynx normal Eyes: Conjunctivae: conjunctivae normal Pupils: Equal, round and reactive pupils present EOM: EOMs intact bilaterally Direct Ophthalmoscopy: no photophobia Neck: Neck: normal visual inspection, no lymphadenopathy and no meningeal signs Chest: Chest palpation & inspection: normal inspection of the chest Resp: Effort & Inspection: normal respiratory effort Auscultation: clear to auscultation bilaterally Cardio: Rate: tachycardic Rhythm: abnormal rhythm GI: Auscultation: normal bowel sounds Other: No tenderness/rigidity/rebound : General: Yes no CVA tenderness Back/Spine/Pelvis: Back: no CVA tenderness Skin: General skin exam: normal color Rashes: no rashes Wounds: no wounds Neuro: General: patient oriented x3, moves all extremities, no meningeal signs, no focal motor deficits and CN's II-XI intact bilaterally Cranial nerves: Yes Nystagmus not present Speech: normal speech Extrem: General: normal to inspection and no clubbing, cyanosis or edema Psych: Mental Status: mental status grossly normal Affect: normal affect Attitude: cooperative Course Course Emergency Course: Anterior chest pain--patient has been having chest pain off and on for the past 1. Patient had an EKG which revealed AFib with a ventricular rate of and 14. No ST elevation was noted. Patient had a normal troponin. Patient has a positive D-dimer. CTA chest did not show any evidence of PE. Atrial fibrillation with rapid ventricular of 114. The patient received metoprolol 2.5 mg IV x1. The patient takes metoprolol and sotalol at home. Subsequently the patient has had a controlled ventricular rate. CKD with a BUN/creatinine of 30/1 3. Will have the patient discontinue celecoxib Elevated blood sugar of 252. Vital Signs Vital signs: Vital Signs Temperature 36.3 C L 05/30/25 13:11 Pulse Rate 137 H 05/30/25 13:11 Respiratory Rate 19 05/30/25 13:11 Blood Pressure 147/105 H 05/30/25 13:11 Pulse Oximetry 99 05/30/25 13:11 Oxygen Delivery Room Air 05/30/25 13:11 Temperature 36.3 C L 05/30/25 13:11 Pulse Rate 96 05/30/25 15:01 Respiratory Rate 17 05/30/25 15:01 Blood Pressure 133/96 H 05/30/25 15:01 Pulse Oximetry 97 05/30/25 15:01 Oxygen Delivery Room Air 05/30/25 15:01 MDM - Chest Pain MDM Narrative Medical decision making narrative: Anterior chest pain CKD Hyperglycemia Acute on chronic renal failure Differential Diagnosis Differential diagnosis: Likely fracture of rib, pneumothorax and stable angina Medical Records Data Attestation: I reviewed the patient's medical records. Lab Data Attestation: I reviewed the patient's lab results. 05/30/25 13:34 05/30/25 13:35 Labs: Lab Results 05/30/25 05/30/25 05/30/25 Range/Units 13:34 13:35 14:54 WBC 6.0 (4.8-10.8) K/mm3 RBC 3.60 L (4.20-5.40) M/mm3 Hgb 11.4 L (11.7-13.8) g/dL Hct 34.9 L (35.0-42.0) % MCV 96.9 (78.0-102.0) fL MCH 31.7 H (27.0-31.0) pg MCHC 32.7 (32-36) g/dL RDW 12.1 (11.6-14.4) % Plt Count 163 (150-420) K/mm3 MPV 10.6 (9.2-11.8) fl Immature Gran % (Auto) 0.7 H (0.0-0.0) % Neut % (Auto) 73.5 H (50.0-70.0) % Lymph % (Auto) 12.0 L (18.0-42.0) % [place] % (Auto) 8.7 (2.0-11.0) % Eos % (Auto) 4.8 (1.0-6.0) % Baso % (Auto) 0.3 (0.0-1.0) % Lymph # (Auto) 0.72 L (1.10-4.50) K/mm3 [place] # (Auto) 0.52 (0.10-0.90) K/mm3 Eos # (Auto) 0.29 (0.02-0.50) K/mm3 Baso # (Auto) 0.02 (0.00-0.10) K/mm3 Abs Immat Gran (auto) 0.04 H (0.00-0.00) K/mm3 Absolute Neuts (auto) 4.41 (1.70-7.20) K/mm3 Absolute Nucleated RBC 0.00 (0.00-0.00) K/mm3 Nucleated RBC % 0.0 (0-0.0) % D-Dimer 0.56 H (0.19-0.50) mg/L Sodium 139 (137-145) mmol/L Potassium 4.7 (3.4-5.0) mmol/L Chloride 102 (98-107) mmol/L Carbon Dioxide 29 (22-30) mmol/L Anion Gap 8 (4-12) mmol/L BUN 30 H (7-17) mg/dL Creatinine 1.32 H (0.7-1.0) mg/dL Estim Creat Clear Calc 24 ml/min Estimated GFR 38 L (59 - ) Glucose 252 H (65-110) mg/dL Calculated Osmolality 303 H (285-295) mOsm/kg Lactic Acid 1.0 (0.4-2.0) mmol/L Calcium 9.4 (8.4-10.2) mg/dL Magnesium 1.7 (1.6-2.3) mg/dL Total Bilirubin 1.3 (0.2-1.3) mg/dL AST 55 H (14-36) U/L ALT 64 H (6-35) U/L Alkaline Phosphatase 163 H (38-126) U/L Total Creatine Kinase 100 (30-135) U/L Troponin I < 0.012 (0.000-0.034) ng/mL NT-Pro-B Natriuret Pep 3390 H (19.9-100) pg/mL Total Protein 7.3 (6.3-8.2) g/dL Albumin 4.2 (3.5-5.1) g/dL Lipase 71 (23-300) U/L Urine Color Light yellow (Yellow) Urine Appearance Clear (Clear) Urine pH 7.0 (5.0-8.0) Ur Specific [place] 1.010 (1.010-1.020) Urine Protein Negative (Negative) Urine Glucose (UA) Negative (Negative) Urine Ketones Negative (Negative) Ur Blood (Man) Negative (Negative) Urine Nitrate Negative (Negative) Urine Bilirubin Negative (Negative) Urine Urobilinogen 0.2 (0.2-1.0) mg/dL Leukocyte Esterase Rfl 1+ H (Negative) RUFINA/UL Urine RBC None seen (0-2) /hpf Urine WBC 4-6 H (0-3) /hpf Ur Squamous Epith Cells Rare (Few) /hpf Urine Bacteria Trace (None) /hpf Discharge Plan Discharge Clinical Impression: Transaminitis Chest pain Qualifiers: Chest pain type: unspecified Qualified Code(s): R07.9 - Chest pain, unspecified Acute renal failure superimposed on stage 3b chronic kidney disease Qualifiers: Acute renal failure type: unspecified Qualified Code(s): N17.9 - Acute kidney failure, unspecified Patient Disposition: Home Condition: Stable Instructions: Antibiotic Form, Chest Pain (ED), Chronic Kidney Disease (ED) Patient Language: Hebrew Prescriptions: No Action atorvastatin 40 mg tablet 40 mg PO DAILY aspirin 325 mg tablet 325 mg PO DAILY sotalol 120 mg tablet 120 mg PO Q12H lisinopril 10 mg tablet 10 mg PO DAILY metformin 500 mg tablet 500 mg PO DAILY cholecalciferol (vitamin D3) 125 mcg (5,000 unit) capsule 125 mcg PO DAILY metoprolol succinate 50 mg tablet extended release 24 hr 50 mg PO DAILY vitamin B complex Tablet 1 tablet PO DAILY pantoprazole 40 mg tablet,delayed release (DR/EC) 40 mg PO QAM celecoxib 200 mg capsule 200 mg PO DAILY Follow-up/Referrals: Katy Vargas MD [Primary Care Provider, Internal Medicine] Time of Disposition: 16:04
[2025-05-30 13:38] LABS: Hematocrit 34.9 % (35.0-42.0); Hemoglobin 11.4 g/dL (11.7-13.8); Immature Granulocyte Percent A 0.7 % (0.0-0.0); Lymphocytes Absolute Auto 0.72 K/mm3 (1.10-4.50); Mean Corpuscular HGB Conc 32.7 g/dL (32-36); Mean Corpuscular Hemoglobin 31.7 pg (27.0-31.0); Mean Corpuscular Volume 96.9 fL (78.0-102.0); Nucleated Red Blood Cells Absolute Auto 0.00 K/mm3 (0.00-0.00); Nucleated Red Blood Cells Perc 0.0 % (0-0.0); Platelet Count Result 163 K/mm3 (150-420); Red Blood Count 3.60 M/mm3 (4.20-5.40); White Blood Count 6.0 K/mm3 (4.8-10.8)
--- OUTSIDE RECORDS SUMMARY | 2025-05-30 13:41 | XMS_ITS | Encounter Summary ---
Author Organization [facility] Address [address] [place] [address] Care Team Providers Care New Media Strategist Name Role Phone Katy Vargas MD Primary Care Provider [phone] Encounter Details Date Type Department Care Team (Late st Contact Info) Description 05/29/2023 Hospital Follow-up Call [facility] [address] [place] [address] Sharla Capps RN Social History [...] declined 05/25/2023 How often do you attend buddhism or mormonism serv ices? Patient declined 05/25/2023 Do you belong to any clubs o r organizations such as buddhism groups, unions, fraternal or athletic groups, or [...] medical care, and heating? Patient declined 05/25/2023 [facility] - Occupational [...] on filedocumented in this encounter Care Teams New Media Strategist Relationship Specialty Start Date End Date Katy Vargas MD [address] [place] [address] PCP - General INTERNAL MEDICINE 05/25/23 documented as of this encounter
--- OUTSIDE RECORDS SUMMARY | 2025-05-30 13:41 | XMS_ITS | Encounter Summary ---
Author Organization [facility] Address [address] [place] [address] Care Team Providers Care Insulation Mechanic Name Role Phone Katy Vargas MD Primary Care Provider + [phone] Katy Vargas MD Primary Care Provider + [phone] Encounter Details Date Type Department Care Team (Late st Contact Info) Description 09/12/2016 Orders Only [facility] ProviderIvon MD [address] [place] [id number] Social History Tobacco Use Types Packs/Day Years Used Date Smoking Tobacco: Never Alcohol Use Standard Drinks/Week Comments No 0 (1 standard drink = 0.6 oz pur e alcohol) Comments Unknown Sex and Gender Information Value Date Recorded Sex Assigned at Not on file Legal Sex Female 9:16 AM DOCTOR'S ASSISTANT Gender Identity Not on file Sexual Orientation [...] on filedocumented in this encounter Care Teams Insulation Mechanic Relationship Specialty Start Date End Date Katy Vargas MD [address] [place] [address] PCP - General 10/28/16 Katy Vargas MD [address] [place] [address] PCP - General 12/13/12 10/27/16 documented as of this encounter
--- OUTSIDE RECORDS SUMMARY | 2025-05-30 13:41 | XMS_ITS | Clinical Summary ---
Author Organization [facility] [address] Address [address] [place] [address] Care Team Providers Care Evp General Counsel Name Role Phone Katy Vargas MD Primary Care Provider + [phone] Allergies No known active allergies Medications metFORMIN [...] (5,000 Units total) by mouth daily Active atorvastatin (LIPITOR) 40 mg tabletIndications:Co ronary arteriosclerosis in [place] artery,Multiple-type hyperlipidemia TAKE 1 TABLET BY MOUTH EVERY DAY 90 tablet 04/26/20 21 Active furosemide (LASIX) 40 mg tablet Take 1 tablet (40 mg total) by mouth daily Active aspirin (Enteric Coated Aspirin) 81 mg enteric coated tabletIndications:Co ronary artery disease involving [place] coronary artery of [place] heart without angina pectoris Take 1 tablet [...] mononitrate ER (IMDUR) 30 mg 24 hr tabletIndications: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 Diabetes mellitus with coincident hypertension 0 01/08/2016 Overview (11/04/2016): Essential hypertension Coronary arteriosclerosis in [place] artery 01/07 Overview (11/04/2016): CAD in [place] artery Assessment & Plan (03/21/2017 6:47 PM [...] Encounters Date Type Department Care Team Description 03/28/2025 2:15 PM CDT Procedure visit [facility] Medical [facility] [address] [place] [address] Atrial fibrillation, unspecified type (HCC) 03/21/2025 1:00 PM CDT Office Visit [facility] Cardiology [address] [place] [phone] Floresita Ly NP Persistent atrial fibrillation (HCC) (Primary Dx); Coronary artery disease of [place] artery of [place] heart with stable angina pectoris; Non-rheumatic mitral regurgitation from Last 3 Months [...] on file Legal Sex Female 9:16 AM MANAGER PLUMBING Gender Identity Not on file Sexual Orientation Not on file Obstetrics History Last Filed Vital Signs Vital Sign Reading Time Taken Comments Blood Pressure 132/70 03/28/2025 2:12 PM CDT Pulse 92 03/28/2025 2:12 PM CDT Temperature 36.5 C (97.7 F) 07/02/2019 1:39 PM MANAGER PLUMBING Respiratory Rate 18 07/02/2019 1:39 PM MANAGER PLUMBING Oxygen Saturation 98% 03/28/2025 2:12 PM CDT Inhaled Oxygen Concentration - - Weight 62.1 kg (137 lb) 03/21/2025 12:53 PM CDT Height 167.6 cm (5' 6) 03/21/2025 12:53 PM CDT Body Mass Index 22.11 03/21/2025 12:53 PM CDT Plan of Treatment Health Maintenance Due [...] Date/Time Associated Diagnosis Comments ECG 12-LEAD Routine 03/28/2025 2:15 PM CDT Atrial fibrillation, unspecified type (HCC) ELECTROCARDIOGRAM REPORT Routine 025 2:55 PM CDT Persistent atrial fibrillation (HCC) Coronary artery disease of [place] artery of [place] heart with stable angina pectoris LIPID PANEL Routine 01/14/2020 11:34 AM CDT from Last 3 Months or Most Recently Relevant to Health Maintenance Results * ECG 12 lead (03/28/2025 2:15 PM CDT) Floresita Ly LEAD DRIVER ECG ORDERABLES Final Res ult * Electrocardiogram Report (03/21/2025 2:55 PM CDT) Floresita Ly LEAD DRIVER ECG ORDERABLES Final Res ult * Lipid [...] Most Recently Relevant to Health Maintenance Insurance [facility] MEDICARE ADVANTAGE [facility] Address: [facility] [address] [place] [address] Care Teams Evp General Counsel Relationship Specialty Start Date End Date Katy Vargas MD [address] [place] [address] PCP - General 10/28/16
--- OUTSIDE RECORDS SUMMARY | 2025-05-30 13:41 | XMS_ITS | Clinical Summary ---
Author Organization [facility] Address [address] [place] [address] Care Team Providers Care Riding Double Name Role Phone Katy Vargas MD Primary Care Provider [phone] Allergies No known active allergies Medications atorvastatin [...] declined 05/25/2023 How often do you attend zoroastrianism or scientology serv ices? Patient declined 05/25/2023 Do you belong to any clubs o r organizations such as zoroastrianism groups, unions, fraSpace Monkey or athletic groups, or school groups? Patient [...] medical care, and heating? Patient declined 05/25/2023 [facility] - [...] place to sleep or slept in a senior living (including now)? Patient refused 05/25/2023 Comments Unknown [...] this topic Medical Devices Implanted Type Area Triple Air Valve Tester Device Identifier Shelf Expiration Date Model / Serial / Lot Cv Xience 3.0mm X 28mm [place] Mid Lad- 3 Implanted: by Chance Hernandez MD (Quantity not on file) Stent Coronary [employer] 10/19/2025 [id number] / / [id number] Procedures Procedure Name Priority Date/Time Associated Diagnosis Comments LIPID PANEL STAT 05/25/2023 11:48 AM CDT from Last 3 Months or Most Recently Relevant to Health Maintenance Results * LIPID PANEL (05/25/2023 11:48 AM CDT) CHOLESTEROL 131 MG/DL 05/25/2023 1:43 PM CDT [facility] Comment:DESIRABLE: <200 TRIGLYCERIDES 56 MG/DL 05/25/2023 1:43 PM CDT [facility] Comment:<150 NORMAL HDL 74 >49 MG/DL 05/25/2023 1:43 PM CDT [facility] LDL (CALCULATED) 46 MG/DL 05/25/20 1:43 PM CDT [facility] Comment:<100 OPTIMAL VLDL CALCULATION 11 MG/DL 05/25/20 1:43 PM CDT [facility] Comment:REFERENCE RANGE NOT ESTABLISHED CHOL/HDL RATIO 1.8 05/25/2023 1:43 PM CDT [facility] Comment:REFERENCE RANGE NOT ESTABLISHED LDL/HDL 0.6 05/25/2023 1:43 PM CDT [facility] Comment:REFERENCE RANGE NOT ESTABLISHED NON HDL CHOLESTEROL 57 MG/DL 05/25/2023 1:43 PM CDT [facility] Comment:REFERENCE RANGE NOT ESTABLISHED 05/25/2023 11:4 8 AM CDT Yadira Acosta [facility] Final R esult [facility] [address] [place] [address], [id number] from Last 3 Months or Most Recently Relevant to Health Maintenance Insurance [facility] Advance Directives * Full Code (Latest Code Status on File) Date Activated Date Inactivated Comments 05/26/2023 5:23 PM 05/27/2023 2:32 PM * Full Code Date Activated Date Inactivated Comments 05/25/2023 11:21 AM 05/26/2023 5:23 PM Care Teams Riding Double Relationship Specialty Start Date End Date Katy Vargas MD [address] [place] [id number] PCP - General INTERNAL MEDICINE 05/25/23
[2025-05-30] MEDS: METOPROLOL TARTRATE INJ 5 MG/5 ML VIAL IV PUSH (13:43)
[2025-05-30 13:52] LABS: Alanine Aminotransferase 64 U/L (6-35); Albumin Level 4.2 g/dL (3.5-5.1); Alkaline Phosphatase 163 U/L (38-126); Anion Gap 8 mmol/L (4-12); Aspartate Amino Transferase 55 U/L (14-36); Bilirubin,Total 1.3 mg/dL (0.2-1.3); Blood Urea Nitrogen 30 mg/dL (7-17); Calcium 9.4 mg/dL (8.4-10.2); Carbon Dioxide 29 mmol/L (22-30); Chloride 102 mmol/L (98-107); Creatine Kinase 100 U/L (30-135); Estimated CRCL calculation 24 ml/min; Estimated Glomerular Filt Rate 38; Glucose 252 mg/dL (65-110); Lipase 71 U/L (23-300); Magnesium 1.7 mg/dL (1.6-2.3); Osmolality Calculated 303 mOsm/kg (285-295); Potassium 4.7 mmol/L (3.4-5.0); Sodium 139 mmol/L (137-145); Total Protein 7.3 g/dL (6.3-8.2)
[2025-05-30 14:03] LABS: NT Pro B Type Natriuretic Pept 3390 pg/mL (19.9-100); Troponin I < 0.012 ng/mL (0.000-0.034)
[2025-05-30] MEDS: SODIUM CHLORIDE 0.9% IV 500 ML 999 ML IV CONT (14:35)
--- NOTE | 2025-05-30 14:41 | PC.NURSE ---
pt to xray for ct chest.
[2025-05-30 14:58] LABS: Add Urine Microscopic? YES; Appearance Urine Clear (Clear); Glucose Urine UA Negative (Negative); Leukocyte Esterase Ur 1+ LEU/UL (Negative); Nitrate Urine Negative (Negative); Specific Grav Ur 1.010 (1.010-1.020)
--- NOTE | 2025-06-02 09:35 | PC.NURSE ---
final urine culture report reviewed by erp gayathri wong. erp ordered abx change. augmentin 500mg bid for 7 days called in to local [facility] pharmacy. pt called to notify of abx change. message left on her voice mail. [facility] will also send a text message to pt when rx is ready for fiber picker. pt's pmd, dr sheriff, notified of change in plan of care.
== END 2025-05-30 16:14 | disposition home or self-care (01) ==
PROVIDERS: Emergency Provider Internal Medicine Critical Care Medicine; PCP Internal Medicine
DX: R74.01 Elevation of levels of liver transaminase levels (principal); R07.9 Chest pain, unspecified; N17.9 Acute kidney failure, unspecified; I25.10 Atherosclerotic heart disease of native coronary artery without angina pectoris; I48.91 Unspecified atrial fibrillation; I11.0 Hypertensive heart disease with heart failure; I50.30 Unspecified diastolic (congestive) heart failure; E11.9 Type 2 diabetes mellitus without complications; I25.2 Old myocardial infarction; E78.5 Hyperlipidemia, unspecified; Z79.899 Other long term (current) drug therapy
CPT/HCPCS: 36415; 71045; 71275; 80053; 81001; 82550; 83605; 83690; 83735; 83880; 84484; 85025; 85380; 87077; 87086; 93005; 96361; 96374; 99284; J0616; J7040; Q9967

== ENCOUNTER 2025-07-21 10:37 | Outpatient (CLI) | payer MEDICARE, SELFPAY ==
[2025-07-21 11:03] LABS: Hematocrit 37.7 % (35.0-42.0); Hemoglobin 11.9 g/dL (11.7-13.8); Mean Corpuscular HGB Conc 31.6 g/dL (32-36); Mean Corpuscular Hemoglobin 31.2 pg (27.0-31.0); Mean Corpuscular Volume 98.7 fL (78.0-102.0); Platelet Count Result 162 K/mm3 (150-420); Red Blood Count 3.82 M/mm3 (4.20-5.40); White Blood Count 6.1 K/mm3 (4.8-10.8)
[2025-07-21 11:07] LABS: Add Urine Microscopic? YES; Appearance Urine Clear (Clear); Glucose Urine UA 3+ (Negative); Leukocyte Esterase Ur 1+ LEU/UL (Negative); Nitrate Urine Negative (Negative); Specific Grav Ur 1.015 (1.010-1.020)
[2025-07-21 11:14] LABS: Hemoglobin A1C 7.7 % (<5.7)
[2025-07-21 11:35] LABS: Alanine Aminotransferase 68 U/L (6-35); Albumin Level 4.5 g/dL (3.5-5.1); Alkaline Phosphatase 176 U/L (38-126); Anion Gap 9 mmol/L (4-12); Aspartate Amino Transferase 71 U/L (14-36); Bilirubin,Total 1.3 mg/dL (0.2-1.3); Blood Urea Nitrogen 25 mg/dL (7-17); Calcium 9.7 mg/dL (8.4-10.2); Carbon Dioxide 28 mmol/L (22-30); Chloride 103 mmol/L (98-107); Creatine Kinase 90 U/L (30-135); Estimated Glomerular Filt Rate 47; Glucose 318 mg/dL (65-110); Iron 121 ug/dL (37-170); Osmolality Calculated 306 mOsm/kg (285-295); Potassium 4.2 mmol/L (3.4-5.0); Sodium 140 mmol/L (137-145); Total Protein 7.5 g/dL (6.3-8.2)
[2025-07-21 11:44] LABS: NT Pro B Type Natriuretic Pept 3370 pg/mL (19.9-100)
[2025-07-21 12:10] LABS: Ferritin 128.00 ng/mL (11.1-264)
--- OUTSIDE RECORDS SUMMARY | 2025-07-21 12:21 | XMS_ITS | Encounter Summary ---
Author Organization [facility] Address [address] [place] [address] Care Team Providers Care Mid Level Net Developer Name Role Phone Katy Vargas MD Primary Care Provider [phone] Encounter Details Date Type Department Care Team (Late st Contact Info) Description 05/29/2023 Hospital Follow-up Call [facility] [address] [place] [address] Sharla Capps RN Social History [...] declined 05/25/2023 How often do you attend episcopalian or zoroastrian serv ices? Patient declined 05/25/2023 Do you belong to any clubs o r organizations such as episcopalian groups, unions, fraternal or athletic groups, or [...] medical care, and heating? Patient declined 05/25/2023 [facility] - Occupational [...] place to sleep or slept in a care home (including now)? Patient refused 05/25/2023 Comments Unknown [...] on filedocumented in this encounter Care Teams Mid Level Net Developer Relationship Specialty Start Date End Date Katy Vargas MD [address] [place] [address] PCP - General INTERNAL MEDICINE 05/25/23 documented as of this encounter
--- OUTSIDE RECORDS SUMMARY | 2025-07-21 12:21 | XMS_ITS | Encounter Summary ---
Author Organization [facility] Address [address] [place] [address] Care Team Providers Care Educational Programming Director Name Role Phone Katy Vargas MD Primary Care Provider + [phone] Katy Vargas MD Primary Care Provider + [phone] Encounter Details Date Type Department Care Team (Late st Contact Info) Description 09/12/2016 Orders Only [facility] ProviderIvon MD [address] [place] [id number] Social History Tobacco Use Types Packs/Day Years Used Date Smoking Tobacco: Never Alcohol Use Standard Drinks/Week Comments No 0 (1 standard drink = 0.6 oz pur e alcohol) Comments Unknown Sex and Gender Information Value Date Recorded Sex Assigned at Not on file Legal Sex Female 9:16 AM EDUCATIONAL TECHNICIAN Gender Identity Not on file Sexual Orientation [...] on filedocumented in this encounter Care Teams Educational Programming Director Relationship Specialty Start Date End Date Katy Vargas MD [address] [place] [address] PCP - General 10/28/16 Katy Vargas MD [address] [place] [address] PCP - General 12/13/12 10/27/16 documented as of this encounter
--- OUTSIDE RECORDS SUMMARY | 2025-07-21 12:21 | XMS_ITS | Clinical Summary ---
Author Organization [facility] [address] Address [address] [place] [address] Care Team Providers Care Manager Perioperative Name Role Phone Katy Vargas MD Primary Care Provider + [phone] Allergies No known active allergies Medications metFORMIN [...] (LIPITOR) 40 mg tabletIndications:Co ronary arteriosclerosis in [place] artery,Multiple-type hyperlipidemia TAKE 1 TABLET BY MOUTH EVERY DAY 90 tablet 04/26/20 21 Active furosemide (LASIX) 40 mg tablet Take 1 tablet (40 mg total) by mouth daily Active aspirin (Enteric Coated Aspirin) 81 mg enteric coated tabletIndications:Co ronary artery disease involving [place] coronary artery of [place] heart without angina pectoris Take 1 tablet [...] 24 hr tabletIndications: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 C/o erratic bms last months [...] Overview (11/04/2016): Essential hypertension Coronary arteriosclerosis in [place] artery 01/07 Overview (11/04/2016): CAD in [place] artery Assessment & Plan (03/21/2017 6:47 PM [...] file Legal Sex Female 9:16 AM MANAGER CONCRETE Gender Identity Not on file Sexual Orientation Not on file Last Filed Vital Signs Vital Sign Reading Time Taken Comments Blood Pressure 132/70 03/28/2025 2:12 PM CDT Pulse 92 03/28/2025 2:12 PM CDT Temperature 36.5 C (97.7 F) 07/02/2019 1:39 PM MANAGER CONCRETE Respiratory Rate 18 07/02/2019 1:39 PM MANAGER CONCRETE Oxygen Saturation 98% 03/28/2025 2:12 PM CDT [...] Most Recently Relevant to Health Maintenance Insurance [facility] MEDICARE ADVANT[facility] Care Teams Manager Perioperative Relationship Specialty Start Date End Date Katy Vargas MD [address] [place] [address] PCP - General 10/28/16
--- OUTSIDE RECORDS SUMMARY | 2025-07-21 12:21 | XMS_ITS | Clinical Summary ---
Author Organization [facility] Address [address] [place] [address] Care Team Providers Care Factory Manager Name Role Phone Katy Vargas MD Primary Care Provider [phone] Allergies No known active allergies Medications atorvastatin [...] declined 05/25/2023 How often do you attend anglican or restorationism serv ices? Patient declined 05/25/2023 Do you belong to any clubs o r organizations such as anglican groups, unions, fraInvenergy or athletic groups, or school groups? Patient [...] medical care, and heating? Patient declined 05/25/2023 [facility] - Occupational [...] place to sleep or slept in a detention (including now)? Patient refused 05/25/2023 Comments Unknown [...] this topic Medical Devices Implanted Type Area Bilingual Receptionist Device Identifier Shelf Expiration Date Model / Serial / Lot Cv Xience 3.0mm X 28mm [place] Mid Lad- 3 Implanted: by Chance Hernandez MD (Quantity not on file) Stent Coronary [employer] 10/19/2025 [id number] / / [id number] Procedures Procedure Name Priority Date/Time Associated Diagnosis Comments LIPID PANEL STAT 05/25/2023 11:48 AM CDT from Last 3 Months or Most Recently Relevant to Health Maintenance Results * LIPID PANEL (05/25/2023 11:48 AM CDT) CHOLESTEROL 131 MG/DL 05/25/2023 1:43 PM CDT [facility] Comment:DESIRABLE: <200 TRIGLYCERIDES 56 MG/DL 05/25/2023 1:43 PM CDT [facility] Comment:<150 NORMAL HDL 74 >49 MG/DL 05/25/2023 1:43 PM CDT [facility] LDL (CALCULATED) 46 MG/DL 05/25/20 1:43 PM CDT [facility] Comment:<100 OPTIMAL VLDL CALCULATION 11 MG/DL 05/25/20 1:43 PM CDT [facility] Comment:REFERENCE RANGE NOT ESTABLISHED CHOL/HDL RATIO 1.8 05/25/2023 1:43 PM CDT [facility] Comment:REFERENCE RANGE NOT ESTABLISHED LDL/HDL 0.6 05/25/2023 1:43 PM CDT [facility] Comment:REFERENCE RANGE NOT ESTABLISHED NON HDL CHOLESTEROL 57 MG/DL 05/25/2023 1:43 PM CDT [facility] Comment:REFERENCE RANGE NOT ESTABLISHED 05/25/2023 11:4 8 AM CDT Yadira Acosta [facility] Final R esult [facility] [address] [place] [address], [id number] from Last 3 Months or Most Recently Relevant to Health Maintenance Insurance [facility]IC[facility] Advance Directives * Full Code (Latest Code Status on File) Date Activated Date Inactivated Comments 05/26/2023 5:23 PM 05/27/2023 2:32 PM * Full Code Date Activated Date Inactivated Comments 05/25/2023 11:21 AM 05/26/2023 5:23 PM Care Teams Factory Manager Relationship Specialty Start Date End Date Katy Vargas MD [address] [place] [id number] PCP - General INTERNAL MEDICINE 05/25/23
[2025-07-21 13:15] LABS: Cholesterol 172 mg/dL (0-200); HDL Direct 92 mg/dL; Triglycerides 87 mg/dL (<150)
== END 2025-07-21 10:38 | disposition home or self-care (01) ==
LOC: CHSLAB 10:40
PROVIDERS: PCP Internal Medicine; Visit Provider Internal Medicine
DX: D64.9 Anemia, unspecified (principal); E11.65 Type 2 diabetes mellitus with hyperglycemia; E55.9 Vitamin D deficiency, unspecified; R82.90 Unspecified abnormal findings in urine; E78.2 Mixed hyperlipidemia; I50.9 Heart failure, unspecified; N39.0 Urinary tract infection, site not specified; I11.0 Hypertensive heart disease with heart failure
CPT/HCPCS: 36415; 80053; 80061; 81001; 82306; 82550; 82728; 83036; 83540; 83880; 85027; 87077; 87086; 87088; 87186